=== PATIENT | female | born 1965 | race Caucasian/White ===

== ENCOUNTER → 2017-09-26 10:12 | Outpatient (CLI) | payer MEDICAID, SELFPAY ==
[2017-09-26 11:34] LABS: Anion Gap 11.1 mEq/L (5-15); Blood Urea Nitrogen 18 mg/dL (7-18); Carbon Dioxide 30 mmol/L (21.0-32.0); Chloride 103 mmol/L (98-107); Creatinine,Serum 0.93 mg/dL (0.55-1.02); Estimated Glomerular Filt Rate 63 ml/min (>60); GFR (African American) 77 ML/MIN (>60); Glucose 89 mg/dL (74-106); Potassium 5.1 mmoL/L (3.5-5.1); Sodium 139 mmol/L (136-145)
== END ==
PROVIDERS: Urology; Visit Provider Internal Medicine
DX: R60.0 Localized edema (principal)
CPT/HCPCS: 36415; 80048

== ENCOUNTER → 2017-12-04 10:45 | Outpatient (CLI) | payer MEDICAID, SELFPAY ==
[2017-12-04 11:47] LABS: Anion Gap 13.5 mEq/L (5-15); Blood Urea Nitrogen 18 mg/dL (7-18); Carbon Dioxide 28 mmol/L (21.0-32.0); Chloride 99 mmol/L (98-107); Creatinine,Serum 1.24 mg/dL (0.55-1.02); Estimated Glomerular Filt Rate 45 ml/min (>60); GFR (African American) 55 ML/MIN (>60); Glucose 111 mg/dL (74-106); Potassium 4.5 mmoL/L (3.5-5.1); Sodium 136 mmol/L (136-145)
== END ==
PROVIDERS: PCP Family Medicine; Visit Provider Physician Assistant
DX: R06.00 Dyspnea, unspecified (principal); R42 Dizziness and giddiness; R94.31 Abnormal electrocardiogram [ECG] [EKG]; I20.9 Angina pectoris, unspecified; I11.0 Hypertensive heart disease with heart failure
CPT/HCPCS: 36415; 80048; 83880

== ENCOUNTER → 2017-12-27 08:46 | Outpatient (CLI) | payer MEDICAID, SELFPAY ==
[2017-12-27 09:50] LABS: Basophils % 0.1 % (0.1-2.0); Eosinophils % 0.5 % (0.1-12.0); Hematocrit 44.5 % (37.0-47.0); Hemoglobin 14.7 g/dL (12.2-16.2); Lymphocytes # 1.5 K/mm3 (0.7-4.5); Lymphocytes % 20.5 K/mm3 (10-50); Mean Corpuscular HGB Conc 32.9 g/dL (31.8-35.4); Mean Platelet Volume 8.7 fl (7.4-10.4); Monocytes # 0.4 K/mm3 (0.1-1.0); Monocytes % 4.9 % (1.7-9.3); Neutrophils # 5.3 K/mm3 (1.8-7.8); Platelet Count 233 K/mm3 (142-424); Red Blood Count 5.24 M/mm3 (4.20-5.40); Red Cell Distribution Width 14.5 % (11.5-17.5); White Blood Count 7.2 K/mm3 (4.8-10.8)
[2017-12-27 10:47] LABS: Alanine Aminotransferase 25 U/L (12-78); Albumin/Globulin Ratio 0.9 (1.1-1.8); Anion Gap 13.6 mEq/L (5-15); Aspartate Amino Transferase 14 U/L (15-37); Bilirubin,Total 0.5 mg/dL (0.2-1.0); Blood Urea Nitrogen 12 mg/dL (7-18); Calcium 9.8 mg/dL (8.5-10.1); Carbon Dioxide 32 mmol/L (21.0-32.0); Chloride 102 mmol/L (98-107); Creatinine,Serum 1.18 mg/dL (0.55-1.02); Estimated Glomerular Filt Rate 48 ml/min (>60); Ferritin 54 ng/mL (8-388); GFR (African American) 58 ML/MIN (>60); Globulin 4.3 gm/dl (1.3-3.2); Iron 43 ug/dl (28-170); Magnesium 1.8 mg/dL (1.4-2.2); Potassium 3.6 mmoL/L (3.5-5.1); Sodium 144 mmol/L (136-145); Total Protein,Serum 8.3 gm/dL (6.4-8.2); Triglycerides 192 mg/dL (30-200)
[2017-12-27 10:48] LABS: Alkaline Phosphatase 177 U/L (46-116); Chol/HDL Ratio 3.7 (1-3.5); Cholesterol 121 mg/dL (140-200); HDL Cholesterol 33 mg/dL (29-89); LDL Cholesterol 50 mg/dL (0-130); Thyroid Stimulating Hormone 1.72 uIU/ml (0.358-3.740); VLDL Cholesterol 38 mg/dL (0-40)
[2017-12-27 10:58] LABS: Glucose 123 mg/dL (74-106)
[2017-12-28 20:02] LABS: Folate >20.0 ng/mL (>3.0); Parathyroid Hormone Intact 36 pg/mL (15-65); Vitamin D 25 Hydroxy 56.4 ng/mL (30.0-100.0)
[2017-12-30 18:27] LABS: Methylmalonic Acid 157 nmol/L (0-378); Vitamin B1 186.3 nmol/L (66.5-200.0)
[2018-01-02 08:27] LABS: Vitamin A 65.6 ug/dL (33.1-100.0); Vitamin E Gamma Tocopherol 0.5 mg/L (0.5-5.5)
== END ==
PROVIDERS: PCP Family Medicine; Visit Provider Physician Assistant
DX: R63.4 Abnormal weight loss (principal); E78.00 Pure hypercholesterolemia, unspecified; I10 Essential (primary) hypertension; Z98.84 Bariatric surgery status
CPT/HCPCS: 36415; 80053; 80061; 82131; 82652; 82728; 82746; 83036; 83540; 83735; 83970; 84100; 84425; 84443; 84446; 84590; 85025

== ENCOUNTER → 2018-02-02 15:10 | Outpatient (CLI) | payer MEDICAID, SELFPAY ==
--- NOTE | 2018-02-02 15:12 | MM_ITS ---
MM Dig screening mamm BI w/CAD ORDERING PHYSICIAN : Maria Isabel Trejo PATIENT AGE: 52 years GENDER: Female COMPARISON: Baseline study no previous INDICATION: ITS.REASON: SCREENING no hormones. No new complaints. Family history. Maternal grandmother and maternal aunt and paternal cousin with breast cancer. TECHNIQUE: Standard CC and MLO images were obtained. R2 CAD reviewed. FINDINGS: Low-density breast with generalized fatty change . No dominant mass nor suspicious calcifications in either breast. No areas of concern Scant fibroglandular tissue with minimal nodularity at the retroareolar region bilaterally is unimpressive, appears benign currently & can be followed CAD computer review highlights no areas of concern either. This is a baseline study with no previous available for comparison. Bilateral follow-up in one year adequate IMPRESSION: ... Negative baseline mammogram. Low-density breast with no areas of significant concern. Bilateral follow-up one year recommended BI-RADS Category: 1 Negative RECOMMENDED FOLLOW-UP: 1YR 1 YEAR FOLLOW-UP (A letter has been sent to the patient regarding results of the study.)
== END ==
PROVIDERS: PCP Nurse Practitioner; Visit Provider Nurse Practitioner
DX: Z12.31 Encounter for screening mammogram for malignant neoplasm of breast (principal)
CPT/HCPCS: 77067

== ENCOUNTER → 2018-06-12 09:19 | Outpatient (CLI) | payer MEDICARE, SELFPAY ==
[2018-06-12 10:00] LABS: Eosinophils % 0.3 % (0.1-12.0); Hematocrit 42.1 % (37.0-47.0); Hemoglobin 13.8 g/dL (12.2-16.2); Lymphocytes # 1.3 K/mm3 (0.7-4.5); Lymphocytes % 21.6 % (10-50); Mean Corpuscular HGB Conc 32.7 g/dL (31.8-35.4); Mean Corpuscular Hemoglobin 28.5 pg (27.0-31.2); Mean Corpuscular Volume 87.4 fl (81-99); Mean Platelet Volume 9.7 fl (7.4-10.4); Monocytes # 0.4 K/mm3 (0.1-1.0); Monocytes % 6.7 % (1.7-9.3); Neutrophils # 4.2 K/mm3 (1.8-7.8); Neutrophils % 71.4 % (37.0-80.0); Platelet Count 177 K/mm3 (142-424); Red Blood Count 4.82 M/mm3 (4.20-5.40); White Blood Count 5.9 K/mm3 (4.8-10.8)
[2018-06-12 10:13] LABS: Hemoglobin A1C 5.8 % (0.0-7.0)
[2018-06-12 11:03] LABS: Alanine Aminotransferase 21 U/L (12-78); Albumin Level 3.5 gm/dL (3.4-5.0); Albumin/Globulin Ratio 0.9 (1.1-1.8); Alkaline Phosphatase 167 U/L (46-116); Anion Gap 12.9 mEq/L (5-15); Aspartate Amino Transferase 11 U/L (15-37); Bilirubin,Total 0.7 mg/dL (0.2-1.0); Blood Urea Nitrogen 12 mg/dL (7-18); Calcium 9.2 mg/dL (8.5-10.1); Carbon Dioxide 31 mmol/L (21.0-32.0); Chloride 101 mmol/L (98-107); Chol/HDL Ratio 3.6 (1-3.5); Cholesterol 113 mg/dL (140-200); Estimated Glomerular Filt Rate 58 ml/min (>60); Ferritin 37 ng/mL (8-388); GFR (African American) 70 ML/MIN (>60); Globulin 3.8 gm/dl (1.3-3.2); Glucose 98 mg/dL (74-106); HDL Cholesterol 31 mg/dL (29-89); Iron 81 ug/dl (28-170); LDL Cholesterol 54 mg/dL (0-130); Magnesium 1.9 mg/dL (1.4-2.2); Phosphorous 3.9 mg/dL (2.4-4.9); Potassium 3.9 mmoL/L (3.5-5.1); Sodium 141 mmol/L (136-145); Thyroid Stimulating Hormone 2.22 uIU/ml (0.358-3.740); Total Protein,Serum 7.3 gm/dL (6.4-8.2); Triglycerides 139 mg/dL (30-200); VLDL Cholesterol 28 mg/dL (0-40)
[2018-06-13 15:27] LABS: Folate >20.0 ng/mL (>3.0); Prealbumin 25 mg/dL (10-36); Vitamin D 25 Hydroxy 41.6 ng/mL (30.0-100.0)
[2018-06-14 09:43] LABS: Parathyroid Hormone Intact 41 pg/mL (15-65)
[2018-06-15 10:53] LABS: Vitamin A 59.7 ug/dL (20.1-62.0); Vitamin E Alpha Tocopherol 9.5 mg/L (7.0-25.1); Vitamin E Gamma Tocopherol 0.7 mg/L (0.5-5.5)
[2018-06-15 13:12] LABS: Methylmalonic Acid 218 nmol/L (0-378)
[2018-06-15 17:31] LABS: Vitamin B1 175.1 nmol/L (66.5-200.0)
== END ==
PROVIDERS: Visit Provider Physician Assistant
DX: R63.4 Abnormal weight loss (principal); E78.5 Hyperlipidemia, unspecified; K21.0 Gastro-esophageal reflux disease with esophagitis; Z98.84 Bariatric surgery status; E11.9 Type 2 diabetes mellitus without complications
CPT/HCPCS: 36415; 80053; 80061; 82131; 82652; 82728; 82746; 83036; 83540; 83735; 83970; 84100; 84134; 84425; 84443; 84446; 84590; 85025

== ENCOUNTER → 2018-07-18 09:19 | Outpatient (CLI) | payer MEDICARE, SELFPAY ==
--- NOTE | 2018-07-18 09:29 | XR_ITS ---
XR DEXA axial skeleton HISTORY: ITS.REASON: POST MENOPAUSAL ORDERING PHYSICIAN: Maria Isabel Trejo PATIENT AGE: 53 years COMPARISON: 08/03/2010 FINDINGS: The BMD measured at the Left femoral neck is 0.848 g/cm squared with a T score of -1.4. This is considered Osteopenic according to the World Health Organization criteria. Fracture risk is Moderate. The L1-L4 density has a T score of -0.4. The bone density has decreased by 6.5 %. The mean hip density has decreased by 12% IMPRESSION: Osteopenia with moderate fracture risk. Treatment is advised. Suggest follow-up exam June 2020
== END ==
PROVIDERS: PCP Nurse Practitioner; Visit Provider Nurse Practitioner
DX: Z78.0 Asymptomatic menopausal state (principal); Z82.62 Family history of osteoporosis
CPT/HCPCS: 77080

== ENCOUNTER 2018-08-23 13:33 | Outpatient (CLI) | payer MEDICARE, SELFPAY ==
[2018-08-23 14:04] VITALS: BP 130/75; PULSE 75; RESP 18; TEMP 36.6; O2SAT 95
== END 2018-08-23 14:30 | disposition home or self-care (01) ==
LOC: INF 13:33
PROVIDERS: Visit Provider Nurse Practitioner
DX: M81.0 Age-related osteoporosis without current pathological fracture (principal)
CPT/HCPCS: 96372; J0897

== ENCOUNTER → 2019-02-19 08:14 | Outpatient (CLI) | payer MEDICARE, SELFPAY ==
--- NOTE | 2019-02-19 08:17 | MM_ITS ---
PROCEDURE: MM DIG SCREENING MAMM BI W/CAD Patient Age:53Y CLINICAL INDICATION: SCREENING 53-year-old post menopausal female. No hormones. No new complaints. Family history: Maternal grandmother and maternal aunt with breast cancer. Also paternal cousin COMPARISON: [facility] MM Dig screening mamm BI w/CAD from 02/02/2018 TECHNIQUE: Standard CC and MLO images were obtained. R2 CAD reviewed. additional nipple profile CC view right and left breast included FINDINGS: Generalized fatty replacement.. Mammography is most optimal low-density breast as seen in this patient. No new areas of concern. No dominant nor suspicious mass.. No suspicious calcifications Right breast. Stable The 3 small stable punctate calcifications superior right breast-not of concern can be followed. Left breast:. Unremarkable . Follow-up 1 year bilaterally recommended IMPRESSION: Stable bilateral mammogram with no new areas of significant concern Bilateral follow-up 1 year recommended BI-RAD Category: 1 Negative FOLLOW-UP: 1YR 1 Year Follow-up (A letter has been sent to the patient regarding results of the study.) Dictated by: Mark Neely MD 02/19/2019 15:58 Electronically signed by Mark Neely MD in [place] 02/25/2019 09:07
== END ==
PROVIDERS: PCP Nurse Practitioner; Visit Provider Nurse Practitioner
DX: Z12.31 Encounter for screening mammogram for malignant neoplasm of breast (principal)
CPT/HCPCS: 77067

== ENCOUNTER 2019-02-26 12:33 | Outpatient (CLI) | payer MEDICARE, SELFPAY ==
[2019-02-26 12:52] VITALS: BP 119/74; PULSE 79; RESP 18; TEMP 36.6; O2SAT 96
== END 2019-02-26 13:05 | disposition home or self-care (01) ==
LOC: INF 12:33
PROVIDERS: Visit Provider Nurse Practitioner
DX: M81.0 Age-related osteoporosis without current pathological fracture (principal)
CPT/HCPCS: 96372; J0897

== ENCOUNTER → 2019-05-02 12:45 | Outpatient (CLI) | payer MEDICARE, SELFPAY | PROVIDERS: PCP Nurse Practitioner; Visit Provider Urology | DX: G47.33 Obstructive sleep apnea (adult) (pediatric) (principal); R40.0 Somnolence | CPT/HCPCS: G0399 ==

== ENCOUNTER → 2019-05-13 10:07 | Outpatient (CLI) | payer MEDICARE, SELFPAY ==
--- NOTE | 2019-05-13 10:12 | XR_ITS ---
PROCEDURE: XR SHOULDER RT MIN 2V CLINICAL INDICATION: TENDINITIS OF RT ROTATOR CUFF COMPARISON: No exams were available for comparison FINDINGS: There is no acute fracture dislocation or other focal bony lesion. IMPRESSION: No acute findings. Dictated by: Alex Obrien 05/13/2019 17:12 Electronically signed by Alex Obrien in [place] 05/13/2019 17:12
== END ==
PROVIDERS: PCP Nurse Practitioner; Visit Provider Nurse Practitioner
DX: M75.81 Other shoulder lesions, right shoulder (principal)
CPT/HCPCS: 73030

== ENCOUNTER → 2019-06-25 10:50 | Outpatient (CLI) | payer MEDICARE, SELFPAY ==
[2019-06-25 13:44] LABS: Ferritin 26.1 ng/ml (11.1-264)
== END ==
PROVIDERS: Visit Provider Nurse Practitioner Family
DX: E83.10 Disorder of iron metabolism, unspecified (principal); G47.33 Obstructive sleep apnea (adult) (pediatric)
CPT/HCPCS: 36415; 82728

== ENCOUNTER 2019-06-28 09:00 | Outpatient (RCR) | payer MEDICARE, SELFPAY ==
--- NOTE | 2019-05-29 11:58 | HMH.OTOPEV ---
OT Inpatient Evaluation Rehab OT Outpatient Eval Start: 05/29/19 11:41 Freq: Status: Active Protocol: Document 05/29/19 11:42 RMDEEL (Rec: 05/29/19 11:56 [id number] Electronically Signed By Tirso Titus OT 05/29/19 11:42 Outpatient Therapy Subjective History Subjective History Pt is a 54 year old female who reports to therapy for initial evaluation to right shoulder. Pt reports in march of 2019 she started to slip and slid into the corner of her house with her right shoulder. Pt explained after this accident she began having pain in the right shoulder. Pt does demonstrate with decreased AROM and strength at right shoulder. Pt is right hand dominant. Pt will continue to be seen twice a week in order to address all deficits. Chief Complaint Stiff,Weakness Symptom Type Ache,Throb,Sharp,Dull,Stabbing ,Shooting Symptoms Relieved By Rest/Positioning,Heat Symptoms Aggravated By Physical Activity,Lifting Prior Functional Limitations None Current Functional Limitations Reaching,Lifting,Housework, Dressing,Driving,Sleeping, Recreation Activity Symptom Description Constant but Variable Level of pain today (0-10) 3 Pain scale - at its best (0-10) 2 Pain scale - at its worst (0-10) 9 Shoulder/Elbow Eval Shoulder Objective Measurements Shoulder ROM Right Shoulder ROM Limitations Pain Shoulder Abduction Active Range of 90 degrees Motion (degrees) Shoulder Flexion Active Range of Motion 70 degrees (degrees) Query Text: Shoulder External Rotation Active Range 75 degrees of Motion (degrees) Shoulder Internal Rotation Active Range 45 degrees of Motion (degrees) pain with active ROM shoulder exam right standard pain with passive ROM shoulder exam right standard decreased ROM shoulder exam standard right Shoulder MMT Shoulder Abduction Strength Grade 3+ Fair+ Shoulder Extension Strength Grade 4- Good- Shoulder Flexion Strength Grade 4- Good- Shoulder Horizontal Abduction Strength 3+ Fair+ Grade Shoulder Horizontal Adduction Strength 3+ Fair+ Grade
--- NOTE | 2019-06-28 09:43 | HMH.RHREAS ---
Rehab Reassessment Rehab OP Re-assessment Start: 06/28/19 09:22 Freq: Status: Active Protocol: Document 06/28/19 09:23 SIA (Rec: 06/28/19 09:42 SIA [id number]) Electronically Signed By Tirso Titus OT 06/28/19 09:23 Rehab Re-assessment Objective Objective Notes Pt continues to be seen twice a week in order to address all deficits at right shoulder. Each session patient engages in R shoulder AROM/AAROM/ Strengthening exercises. Pt also receives modalities such as e-stim to reduce pain/ inflammation. Assessment Progress Assessment Progressing as Expected Assessment Notes Pt reports she feels she is 50 % better since beginning therapy. She does still have pain at times in the shoulder, but it is not as frequent as it used to be. Pt claims her pain at the worst now is a 7/ 10, which does not happen daily. Pt demonstrates with improved AROM and strength at right shoulder. Pt is able to tolerat 30-35 minutes of therapy exercises prior to rest. Current AROM/MMT R shoulder Flex: 122 degrees; 4 Abd: 115 degrees; 4 ER: 75 degrees: 4 IR: 55 degrees; 4- Patient goals met Pt has met all short term goals written on initial evaluation Goals Not Met jail goals Revised Goals Continue progressing towards fdc goals written on initial evaluation. Plan Plan Continue with OT plan of care Frequency of Therapy 2x's a week Duration of therapy 4-6 more weeks Time and Billing Re-Eval Time 15 Re-Eval Billing Units 1 PHYSICIAN CERTIFICATION: I certify the specified therapy services for Rebeca Bassett are required, authorized, and reviewed every 30 days.
== END 2019-06-28 09:05 | disposition home or self-care (01) ==
LOC: OT 09:00
PROVIDERS: PCP Nurse Practitioner; Visit Provider Nurse Practitioner
DX: M75.81 Other shoulder lesions, right shoulder (principal)
CPT/HCPCS: 97014; 97110; 97164; 97166; G0283

== ENCOUNTER 2019-08-28 12:00 | Outpatient (CLI) | payer MEDICARE, SELFPAY ==
[2019-08-28 12:19] VITALS: BP 119/70; PULSE 74; RESP 20; TEMP 36.3; O2SAT 95
== END 2019-08-28 12:19 | disposition home or self-care (01) ==
LOC: INF 12:00
PROVIDERS: Visit Provider Nurse Practitioner
DX: M85.89 Other specified disorders of bone density and structure, multiple sites (principal)
CPT/HCPCS: 96372; J0897

== ENCOUNTER → 2019-10-18 11:14 | Outpatient (CLI) | payer MEDICARE, SELFPAY ==
[2019-10-19 14:20] LABS: Covid-19 Nasal PCR Sendout Lex Not Detected
== END ==
PROVIDERS: Visit Provider Nurse Practitioner
DX: Z01.818 Encounter for other preprocedural examination (principal); G47.33 Obstructive sleep apnea (adult) (pediatric)
CPT/HCPCS: U0004

== ENCOUNTER → 2019-10-24 20:11 | Outpatient (CLI) | payer MEDICARE, SELFPAY | PROVIDERS: PCP Nurse Practitioner; Visit Provider Nurse Practitioner Family | DX: G47.33 Obstructive sleep apnea (adult) (pediatric) (principal); I10 Essential (primary) hypertension; E66.9 Obesity, unspecified; J44.9 Chronic obstructive pulmonary disease, unspecified; G25.81 Restless legs syndrome | CPT/HCPCS: 95811 ==

== ENCOUNTER → 2019-11-13 10:01 | Outpatient (CLI) | payer MEDICARE, SELFPAY ==
[2019-11-13 12:49] LABS: Ferritin 53.7 ng/ml (11.1-264)
== END ==
PROVIDERS: Visit Provider Nurse Practitioner Family
DX: E83.10 Disorder of iron metabolism, unspecified (principal); G25.81 Restless legs syndrome
CPT/HCPCS: 36415; 82728

== ENCOUNTER → 2020-02-06 08:53 | Outpatient (CLI) | payer MEDICARE, SELFPAY ==
--- NOTE | 2020-02-06 08:56 | MM_ITS ---
PROCEDURE: MM DIG SCREENING MAMM BI W/CAD Digital Breast Tomosynthesis Included CLINICAL INDICATION: SCREENING There is a history of breast cancer in the patient's maternal grandmother maternal aunt and paternal cousin. COMPARISON: [facility] MM Dig screening mamm BI w/CAD from 02/02/2018 MG MM DIG SCREENING MAMM BI W/CAD from 02/19/2019 TECHNIQUE: Standard CC and MLO images and 3D Tomosynthesis was obtained. R2 CAD reviewed. FINDINGS: The breasts are composed primarily of fat with minimal scattered fibroglandular densities in each breast. There is no suspicious lesion in either breast and no suspicious microcalcifications. IMPRESSION: Low-density fatty type breast parenchyma with no suspicious lesions seen BI-RAD Category: 2 Benign Finding(s) FOLLOW-UP: 1 Year Follow-up (A letter has been sent to the patient regarding results of the study.) Dictated by: Dr. Keyur Mitchell MD 02/07/2020 10:58 Dr. Keyur Mitchell MD in [place] 02/07/2020 10:58
== END ==
PROVIDERS: PCP Nurse Practitioner; Visit Provider Nurse Practitioner
DX: Z12.31 Encounter for screening mammogram for malignant neoplasm of breast (principal)
CPT/HCPCS: 77063; 77067

== ENCOUNTER 2020-03-03 11:38 | Outpatient (CLI) | payer MEDICARE, SELFPAY ==
[2020-03-03 11:48] VITALS: BP 129/75; PULSE 70; RESP 18; TEMP 36.2; O2SAT 98
== END 2020-03-03 12:10 | disposition home or self-care (01) ==
LOC: INF 11:38
PROVIDERS: Visit Provider Nurse Practitioner
DX: M81.0 Age-related osteoporosis without current pathological fracture (principal)
CPT/HCPCS: 96372; J0897

== ENCOUNTER → 2020-07-28 13:55 | Outpatient (CLI) | payer MEDICARE, OTHER, SELFPAY ==
[2020-07-28 14:11] LABS: Chloride 107 mmol/L (98-107); Potassium 4.2 mmoL/L (3.5-5.1); Sodium 139 mmol/L (136-145)
[2020-07-28 14:13] LABS: Alanine Aminotransferase 16 U/L (12-78); Alkaline Phosphatase 119 U/L (38-126); Aspartate Amino Transferase 23 U/L (14-36); Bilirubin,Total 0.4 mg/dl (0.2-1.3); Blood Urea Nitrogen 9 mg/dl (7-17); Estimated Glomerular Filt Rate 74 ml/min (>60); GFR (African American) 90 ML/MIN (>60)
[2020-07-28 14:14] LABS: Albumin Level 4.3 g/dl (3.5-5.0); Albumin/Globulin Ratio 1.3 (1.1-1.8); Anion Gap 12.2 mEq/L (5-15); Calcium 9.6 mg/dl (8.4-10.2); Carbon Dioxide 24 mmol/L (22.0-30.0); Chol/HDL Ratio 3.9 (1-3.5); Cholesterol 135 mg/dl (140-200); Globulin 3.2 g/dL (1.3-3.2); Glucose 85 mg/dl (74-100); HDL Cholesterol 35 mg/dl (40-60); Iron 87 ug/dL (37-170); Total Protein,Serum 7.5 g/dl (6.3-8.2); Triglycerides 182 mg/dl (30-150); VLDL Cholesterol 36 mg/dL (0-40)
[2020-07-28 14:17] LABS: Creatinine,Urine Random 20 mg/dL (Not Estab.)
[2020-07-28 14:18] LABS: Basophils % 0.2 % (0.1-2.0); Eosinophils # 0.4 K/mm3 (0.0-0.4); Eosinophils % 4.2 % (0.1-12.0); Hematocrit 47.5 % (37.0-47.0); Hemoglobin 16.1 g/dL (12.2-16.2); Lymphocytes % 22.1 % (10-50); Mean Corpuscular HGB Conc 33.8 g/dL (31.8-35.4); Mean Corpuscular Hemoglobin 31.7 pg (27.0-31.2); Mean Corpuscular Volume 93.8 fl (81-99); Mean Platelet Volume 10.4 fl (7.4-10.4); Monocytes # 0.5 K/mm3 (0.1-1.0); Monocytes % 5.8 % (1.7-9.3); Neutrophils # 6.1 K/mm3 (1.8-7.8); Neutrophils % 67.8 % (37.0-80.0); Platelet Count 203 K/mm3 (142-424); Red Blood Count 5.06 M/mm3 (4.20-5.40); Red Cell Distribution Width 13.3 % (11.5-17.5)
[2020-07-28 14:20] LABS: C-Reactive Protein 7.4 mg/L (0-4)
[2020-07-28 14:23] LABS: Microalbumin < 6.000 mg/L (0-16.7)
[2020-07-28 14:24] LABS: Total Iron Binding Capacity 379 ug/dL (265-497)
[2020-07-28 14:25] LABS: Direct LDL Cholesterol 72.61 mg/dL (100-129)
[2020-07-28 14:34] LABS: T4 (Thyroxine) 11.4 ug/dl (5.53-11.0)
[2020-07-28 14:42] LABS: Hemoglobin A1C 5.7 % (4.0-6.0)
[2020-07-28 14:45] LABS: Thyroid Stimulating Hormone 1.93 uIU/mL (0.465-4.68)
[2020-07-28 14:46] LABS: Erythrocyte Sedimentation Rate 19 mm/hr (0-30)
[2020-07-28 14:52] LABS: 25-OH Vitamin D, Total 33.4 ng/mL (30-100)
== END ==
PROVIDERS: Visit Provider Family Medicine
DX: E11.9 Type 2 diabetes mellitus without complications (principal); E55.9 Vitamin D deficiency, unspecified; R60.9 Edema, unspecified; R07.9 Chest pain, unspecified; Z79.84 Long term (current) use of oral hypoglycemic drugs
CPT/HCPCS: 80053; 80061; 82043; 82306; 82570; 83036; 83540; 83550; 84436; 84443; 85025; 85651; 86140

== ENCOUNTER → 2020-08-10 11:16 | Outpatient (POV) | payer MEDICARE, OTHER, SELFPAY ==
[2020-08-10 11:46] VITALS: BP 138/89; PULSE 83; RESP 18; BMI 33.2
--- NOTE | 2020-08-10 12:05 | HMH.PMCON ---
Assessment and Plan (1) Back pain Status: Acute Category: Medical Code(s): M54.9 - Dorsalgia, unspecified (2) Bilateral foot pain Status: Acute Category: Medical Code(s): M79.671 - Pain in right foot; M79.672 - Pain in left foot - Assessment and plan all Dx Assessment and Plan for all problems:: We will start the patient on gabapentin 100 mg 1 p.o. nightly. We will also get a lumbar MRI. I will follow-up with her afterwards reassess her symptoms at that time she has been instructed to call the office if she has any issues prior to her next appointment. She is failed over [address] management[address]. Edwards has reviewed this note and agrees with this plan of care. This note was dictated using voice recognition software and may contain errors or omissions HPI - Data of Consult Consult date: 08/10/20 Requesting Physician: Christina Mann APRN Primary Care Provider: Mary Marshall APRN - Consult Narrative Reason for consult: Bilateral foot pain History of present illness: Ms. Bassett is a 55 year old female who presents today for consultation regards her bilateral foot pain. She states she is had pain for 2 years she was seen by podiatry who diagnosed with arthritis. Patient states that her pain is about an 8 out of 10 she has difficulty with standing and walking. She is also having low back pain. She is on Be[place] and tramadol with no long-term relief. Patient has tried Lyrica in the past it was beneficial however she had nausea with it. We discussed adding a low-dose of gabapentin at bedtime she is agreeable. She does not have any lower lumbar imaging I do believe that this would benefit her. Patient has recently switched primary care providers. CC: Christina Mann APRN [facility] History I have reviewed the patient's past medical history: Yes Medical History: Reports:: Anxiety, Congestive Heart Failure, Chronic Obstructive Pulmonary Disease (COPD), Coronary Artery Disease, Depression, Gastroesophageal Reflux Disease(GERD), Hyperlipidemia, Hypertension, Myocardial Infarction Denies:: Cancer, Diabetes Mellitus Type 1, Diabetes Mellitus Type 2, MRSA *Have you ever received a pneumonia vaccine?: Yes *Have you received a flu vaccine this season?: Yes Other Medical History: Reports: Arthritis, Fibromyalgia, Sinus Problems Laterality Cases: Bilateral: Tonsillectomy Other Surgeries: Yes: Cardiac Catheterization, Cholecystectomy, Colonoscopy, Coronary Stent, Dilation and Curettage, EGD, Hysterectomy-Total, Other Amputation: No Fractures: No - *Social History Smoking Status: Current every day smoker Tobacco Type: cigarettes # Packs/Day (cigarettes): 1 #Yrs smoked (if former smoker): 30 Alcohol Intake: never Alcohol Intake Frequency:: other Substance Use Type: denies use *Occupational Status:: other Housing: house Household Members: other *Travel in the last 8 weeks: None - Psychiatric History Pschychiatric History:: Reports:: Anxiety, Depression Family Hx:: Unable to obtain Review of Systems - Review of Systems ROS General: no recent weight change, no fever, no sleep disturbances Respiratory: no cough, no shortness of air, no recurring pulmonary infections Cardiovascular/Peripheral Vascular: No chest pain, No palpitations, no edema, no shortness of breath. Gastrointestinal: no new onset incontinence, normal bowel movements reported Genitourinary: no new onset incontinence Musculoskeletal: Bilateral foot pain, back pain Psychiatric: normal mood/ affect Neurological: [denies new onset weakness in extremities], [denies new onset balance issues] Meds Home Medications Medication Instructions Recorded Confirmed Type aspirin 81 mg tablet,delayed 81 mg PO QDAY 05/22/17 05/27/20 History release liraglutide 0.6 mg/0.1 mL (18 mg/3 1.2 mg SUB-Q QDAY ml 05/22/17 05/27/20 History mL) subcutaneous pen injector omeprazole 40 mg capsule,delayed 40 mg PO QDAY 05/22/17 05/27/20 Hist
== END ==
PROVIDERS: PCP Nurse Practitioner Family; Visit Provider Clinical Nurse Specialist Family Health
DX: M54.9 Dorsalgia, unspecified (principal); M79.671 Pain in right foot; M79.672 Pain in left foot
CPT/HCPCS: 99202; G0463

== ENCOUNTER → 2020-08-18 13:01 | Outpatient (CLI) | payer MEDICARE, OTHER, SELFPAY ==
--- NOTE | 2020-08-18 13:07 | MR_ITS ---
PROCEDURE: MR LUMBAR SPINE WO CON CLINICAL INDICATION: BACK PAIN Low back pain. Bilateral foot pain x3-4months. COMPARISON: CT ABDPELW/O CT ABD PELVIS W/O CONTRAST from 07/13/2016 TECHNIQUE: Standard multiplanar multiecho sequences are performed without contrast. 3-D MIP and myelographic images are also rendered and reviewed FINDINGS: The spinal cord ends at the L1 level. L1-L2: Unremarkable. L2-L3: Unremarkable. L3-L4: Minimal bulging disc with mild facet and ligamentum hypertrophy with mild bilateral lateral recess and foraminal narrowing.. L4-5: There is 3 mm anterolisthesis of L4 with bulging disc with facet and ligamentum hypertrophy and moderate bilateral foraminal narrowing with canal stenosis. Small amount of fluid is present in the facet joint on the left at this level. L5-S1: Minimal bulging disc along with facet and ligamentum hypertrophic change with mild left-sided foraminal narrowing. No extruded herniated disc. IMPRESSION: 1. L3-L4: Minimal bulging disc with mild facet and ligamentum hypertrophy with mild bilateral lateral recess and foraminal narrowing.. 2. L4-5: There is 3 mm anterolisthesis of L4 with bulging disc with facet and ligamentum hypertrophy and moderate bilateral foraminal narrowing with canal stenosis. Small amount of fluid is present in the facet joint on the left at this level. 3. L5-S1: Minimal bulging disc along with facet and ligamentum hypertrophic change with mild left-sided foraminal narrowing. 4. No extruded herniated disc. Dictated by: Ventura Matos MD 08/19/2020 11:59 Ventura Matos MD in [place] 08/19/2020 11:59
== END ==
PROVIDERS: PCP Nurse Practitioner Family; Visit Provider Clinical Nurse Specialist Family Health
DX: M54.5 Low back pain (principal)
CPT/HCPCS: 72148; 76376

== ENCOUNTER → 2020-08-27 13:07 | Outpatient (POV) | payer MEDICARE, OTHER, SELFPAY ==
[2020-08-27 13:12] VITALS: BP 140/88; PULSE 77; RESP 18; BMI 31.6
--- NOTE | 2020-08-27 13:36 | P.CONS_ITS ---
[facility] Pain Management SOAP Note Subjective:: She is a pleasant 55-year-old white female who presents today for follow-up after MRI. Patient does have degenerative disc changes along with facet hypertrophy. She also has left-sided foraminal narrowing. Patient and I discussed injection therapy she is agreeable we will set her up for an L4-L5 steph mbar epidural steroid injection most of her pain is in her back and bilateral lower extremities worse than the left. Patient is on gabapentin. We will make some increases to that today she denies any side effects to that medication. She rates her pain today an 8 out of 10. ROS General: no recent weight change, no fever, no sleep disturbances Respiratory: no cough, no shortness of air, no recurring pulmonary infections Cardiovascular/Peripheral Vascular: No chest pain, No palpitations, no edema, no shortness of breath. Gastrointestinal: no new onset incontinence, normal bowel movements reported Genitourinary: no new onset incontinence Musculoskeletal: Back pain, leg pain Psychiatric: normal mood/ affect Neurological: [denies new onset weakness in extremities], [denies new onset b alance issues] Objective:: Physical Exam General: Alert and oriented x3, no acute distress, pleasant and cooperative, [on room air] Lungs: Resps E/U, Symmetrical chest expansion, Eyes: PERRL Musculoskeletal: Flexion and extension of lumbar spine somewhat guarded secondary to pain, deep tendon reflexes normal, strength in upper and lower extremities [5/5], slightly antalgic gait noted Neurological: speech clear, waiter/waitress cocktail lounge equal, no gross sensory deficits Assessment:: Degenerative disc disease lumbar spine lumbar radiculopathy, back pain Plan:: We will schedule the patient for an L4-L5 lumbar epidural steroid injection. Patient's been instructed to call the office if she has any issues prior to her next appointment. We will increase her gabapentin to 300 mg 1 p.o. 4 times daily. [facility] Edwards has reviewed this note and agrees with this plan of care. This note was dictated using voice recognition software and may contain errors or omissions [facility] History I have reviewed the patient's past medical history: Yes Medical History: Reports:: Anxiety, Congestive Heart Failure, Chronic Obstructive Pulmonary Disease (COPD), Coronary Artery Disease, Depression, Gastroesophageal Reflux Disease(GERD), Hyperlipidemia, Hypertension, Myocardial Infarction Denies:: Cancer, Diabetes Mellitus Type 1, Diabetes Mellitus Type 2, MRSA *Have you ever received a pneumonia vaccine?: Yes *Have you received a flu vaccine this season?: Yes Other Medical History: Reports: Arthritis, Fibromyalgia, Sinus Problems Laterality Cases: Bilateral: Tonsillectomy Other Surgeries: Yes: Cardiac Catheterization, Cholecystectomy, Colonoscopy, Coronary Stent, Dilation and Curettage, EGD, Hysterectomy-Total, Other Amputation: No Fractures: No - *Social History Smoking Status: Current every day smoker Tobacco Type: cigarettes # Packs/Day (cigarettes): 1 #Yrs smoked (if former smoker): 30 Alcohol Intake: never Alcohol Intake Frequency:: other Substance Use Type: denies use *Occupational Status:: other Housing: house Household Members: other *Travel in the last 8 weeks: None - Psychiatric History Pschychiatric History:: Reports:: Anxiety, Depression Family Hx:: Unable to obtain
--- NOTE | 2020-09-01 11:41 | PC.NURSE ---
notified patient that approval was obtained for her to to hold her plavix 7 days prior to injection from Dr Stevenson. pt v/u
== END ==
PROVIDERS: PCP Nurse Practitioner Family; Visit Provider Clinical Nurse Specialist Family Health
DX: M51.16 Intervertebral disc disorders with radiculopathy, lumbar region (principal)
CPT/HCPCS: 99212; G0463

== ENCOUNTER 2020-09-01 11:03 | Outpatient (CLI) | payer MEDICARE, OTHER, SELFPAY ==
[2020-09-01 11:17] VITALS: BP 133/89; PULSE 75; RESP 18; TEMP 36.6; O2SAT 96
== END 2020-09-01 11:40 | disposition home or self-care (01) ==
LOC: INF 11:03
PROVIDERS: Visit Provider Nurse Practitioner
DX: M81.0 Age-related osteoporosis without current pathological fracture (principal)
CPT/HCPCS: 96372; J0897

== ENCOUNTER 2020-09-11 10:09 | Day surgery (SDC) | payer MEDICARE, OTHER, SELFPAY ==
[2020-09-11 10:22] VITALS: BP 121/76; PULSE 78; RESP 18; TEMP 36.6; O2SAT 99; BMI 32.3
[2020-09-11 10:37] VITALS: BP 116/74; PULSE 78; RESP 18; O2SAT 98
[2020-09-11 10:38] VITALS: BP 117/78; PULSE 79; RESP 18; O2SAT 98
--- NOTE | 2020-09-11 10:49 | HMH.PMPROC ---
- Procedure Date: 09/11/20 Time: 10:49 Anesthesiologist:: Nilay Edwards MD Complications:: None Pre-procedure Diagnosis:: Degenerative disc disease of lumbar spine with lumbar radiculopathy symptoms Post-procedure Diagnosis:: Same Indications for Procedure:: Patient is a pleasant 55-year-old white female who we are treating for low back pain with lumbar radiculopathy symptoms. She has increasing pain in her back and down both legs left greater than right. We will do lumbar epidural steroid injection today to see if this will help with her pain symptoms. Procedure Details:: Informed consent was obtained and the risk and benefits of the procedure was explained to the patient. The patient was taken to the procedure room. The patient was placed prone on the procedure table. The patient was prepped and draped in sterile fashion. C-arm fluoroscopy was used to view the lumbar spine. Skin and subcutaneous tissues were anesthetized using lidocaine. I placed an 18-gauge epidural needle and advanced into the L4-L5 interspace using fluoroscopic guidance and [id number] to air. After confirmation of needle placement in the epidural space with dye I injected 2 mL of lidocaine 1.5% with Depo-Medrol 80 mg. Patient tolerated the procedure well with no complications. Plan and Disposition:: We will follow-up with her in 2 weeks. Will reevaluate her symptoms at that time.
[2020-09-11 10:55] VITALS: BP 129/84; PULSE 73; RESP 18; O2SAT 98
== END 2020-09-11 10:56 | disposition home or self-care (01) ==
LOC: SC.PAINP 10:11
PROVIDERS: PCP Family Medicine; Visit Provider Anesthesiology
DX: M51.16 Intervertebral disc disorders with radiculopathy, lumbar region (principal); E78.5 Hyperlipidemia, unspecified; I11.0 Hypertensive heart disease with heart failure; I25.10 Atherosclerotic heart disease of native coronary artery without angina pectoris; I50.9 Heart failure, unspecified; H81.09 Meniere's disease, unspecified ear; J44.9 Chronic obstructive pulmonary disease, unspecified; Z72.0 Tobacco use; Z95.818 Presence of other cardiac implants and grafts; Z88.8 Allergy status to other drugs, medicaments and biological substances
CPT/HCPCS: 62323; J1040; Q9966

== ENCOUNTER → 2020-10-02 07:41 | Outpatient (CLI) | payer MEDICARE, OTHER, SELFPAY ==
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
== END ==
PROVIDERS: PCP Family Medicine; Visit Provider Family Medicine
DX: M54.2 Cervicalgia (principal)
CPT/HCPCS: 72141; 76376

== ENCOUNTER → 2020-10-08 08:58 | Outpatient (POV) | payer MEDICARE, OTHER, SELFPAY ==
[2020-10-08 09:12] VITALS: BP 111/77; PULSE 77; RESP 20; O2SAT 96; BMI 31.6
--- NOTE | 2020-10-08 11:14 | HMH.PAINSOAP ---
[facility] Pain Management SOAP Note Subjective:: Patient is a 55-year-old white female who presents today for follow-up. She recently had a lumbar epidural steroid injection. She is being treated for degenerative disc disease lumbar spine with lumbar radiculopathy symptoms. She also underwent a cervical MRI. Patient is having severe neck pain radiating into bilateral shoulders, arms, and numbness and tingling in her hands. She is having difficulty holding objects and grasping things. She says she is dropping objects often. Raising her arms worsens her pain. She says the pain is also radiating into her head. She says it is a crushing-like sensation. She rates her pain an 8 out of 10 today. She is having tingling into her fingers that she says feels as though her fingers are about to fall asleep . She has tried physical therapy in the past for greater than 6 weeks and continues with home stretching. She got significant relief with her lumbar epidural steroid injection up to 80% and still getting relief. Review of Systems General: No recent weight changes, no fever, no sleep disturbances Respiratory: No cough, no shortness of air, no recurring pulmonary infections Cardiovascular/peripheral vascular: No chest pain, no palpitations, no edema, no shortness of breath Gastrointestinal: No new onset incontinence, normal bowel movements reported Genitourinary: No new onset incontinence Musculoskeletal: Neck pain with radiation into head, bilateral shoulders and arms with numbness and tingling in hands Psychiatric: Normal mood/affect Neurological: His upper extremities, [denies balance issues] Objective:: Physical exam General: Alert and oriented x3, no acute distress, pleasant and cooperative, [on room air] Lungs: Respirations even and unlabored, symmetrical chest expansion Eyes: PERRL Musculoskeletal: Flexion and extension of cervical spine somewhat guarded secondary to pain, deep tendon reflexes normal, strength in upper and lower extremities 4/5, normal gait noted Neurological: Speech clear, sisal operator equal, no gross sensory deficit Assessment:: Degenerative disc disease cervical spine with cervical radiculopathy symptoms, degenerative disc disease lumbar spine with lumbar radiculopathy symptoms Plan:: We will schedule the patient for cervical epidural steroid injection at C5-C6. We did review her imaging today. Patient is not on any anticoagulation therapy. She is continue with home stretching and anti-inflammatories. She has tried and failed conservative therapies of physical therapy for greater than 6 weeks and home stretching, as well as ice and heat therapies. We will see her back after injection to reevaluate her symptoms. Risks and benefits of the procedure have been explained to the patient. Patient would like to proceed with the procedure. Patient has been instructed to contact the clinic with any concerns before the next appointment. Dr. Edwards has reviewed this note and agrees with this plan of care. This note was dictated using voice recognition software and make contain errors or omissions. [facility] History I have reviewed the patient's past medical history: Yes Medical History: Reports:: Anxiety, Cancer, Congestive Heart Failure, Chronic Obstructive Pulmonary Disease (COPD), Coronary Artery Disease, Depression, Diabetes Mellitus Type 2, Gastroesophageal Reflux Disease(GERD), Hyperlipidemia, Hypertension, Myocardial Infarction Denies:: Diabetes Mellitus Type 1, MRSA *Have you ever received a pneumonia vaccine?: Yes *Have you received a flu vaccine this season?: Yes Other Medical History: Reports: Arthritis, Fibromyalgia, Sinus Problems. Denies: Blood Transfusion Reaction Laterality Cases: Bilateral: Tonsillectomy Other Surgeries: Yes: Cardiac Catheterization, Cholecystectomy, Colonoscopy, Coronary Stent, Dilation and Curettage, EGD, Hysterectomy-Total, Other Amputation: No Fractures: No - *Social History Smoking Stat
== END ==
PROVIDERS: PCP Family Medicine; Visit Provider Clinical Nurse Specialist Family Health
DX: M50.10 Cervical disc disorder with radiculopathy, unspecified cervical region (principal); M51.16 Intervertebral disc disorders with radiculopathy, lumbar region
CPT/HCPCS: 99212; G0463

== ENCOUNTER 2020-10-16 09:03 | Day surgery (SDC) | payer MEDICARE, OTHER, SELFPAY ==
[2020-10-16 09:04] VITALS: BP 111/68; PULSE 78; RESP 18; TEMP 36.6; O2SAT 97; BMI 32.3
[2020-10-16 09:39] VITALS: BP 128/84; PULSE 77; RESP 18; O2SAT 95
[2020-10-16 09:43] VITALS: BP 121/81; PULSE 72; RESP 18; O2SAT 96
[2020-10-16 10:00] VITALS: BP 119/83; PULSE 76; RESP 20; O2SAT 97
--- NOTE | 2020-10-16 10:08 | HMH.PMPROC ---
- Procedure Date: 10/16/20 Time: 10:08 Anesthesiologist:: Liza Curry MD Complications:: None Pre-procedure Diagnosis:: Disc disease of the cervical spine, cervical radiculopathy Post-procedure Diagnosis:: Same Indications for Procedure:: She is a very pleasant 55-year-old white female who we are treating for neck pain radiating into her arms. She states that the left arm is slightly worse than the right. She also notes of numbness and tingling in her hands and has difficulty holding objects and grasping things. She has trialed and failed conservative treatment including oral pain medications, physical therapy for greater than 6 weeks. Of note, she also has degenerative disc disease of the lumbar spine with lumbar radiculopathy and undergoes lumbar epidural steroid injections with greater than 80% pain relief for 2 to 3 months. Procedure Details:: Cervical epidural steroid injection under fluoroscopy Informed consent was obtained and the risks and benefits of the procedure was explained to the patient. The patient was taken to the procedure room placed prone on the procedure table. The neck was prepped using ChloraPrep. The skin and subcutaneous tissues were anesthetized using lidocaine. I placed a 18-gauge epidural needle into the C7-T1 interspace and advanced using [id number] to air and fluoroscopic guidance. After confirmation of needle placement in the epidural space with dye, I injected 1 mL lidocaine 1.5% and Depo-Medrol 80 mg. The patient tolerated the procedure well with no complications. Plan and Disposition:: We will follow-up with this patient in 2 weeks. Will reevaluate pain symptoms at that time. We may also consider a repeat lumbar epidural steroid injection in the future if low back pain radiating into her legs persists.
== END 2020-10-16 10:00 | disposition home or self-care (01) ==
LOC: SC.PAINP 09:04
PROVIDERS: PCP Family Medicine; Visit Provider Anesthesiology Pain Medicine
DX: M50.10 Cervical disc disorder with radiculopathy, unspecified cervical region (principal); I25.2 Old myocardial infarction; I50.9 Heart failure, unspecified; E78.5 Hyperlipidemia, unspecified; I11.0 Hypertensive heart disease with heart failure; J44.9 Chronic obstructive pulmonary disease, unspecified; M79.18 Myalgia, other site; M19.90 Unspecified osteoarthritis, unspecified site; E11.9 Type 2 diabetes mellitus without complications; F41.9 Anxiety disorder, unspecified; F32.9 Major depressive disorder, single episode, unspecified; Z72.0 Tobacco use
CPT/HCPCS: 62321; J1040; Q9966

== ENCOUNTER 2020-10-21 10:05 | Emergency (ER) | payer MEDICARE, OTHER, SELFPAY ==
[2020-10-21 10:14] VITALS: BP 166/101; PULSE 88; RESP 20; TEMP 37.1; O2SAT 96; BMI 73.3
--- NOTE | 2020-10-21 10:25 | XR_ITS ---
PROCEDURE: XR CHEST 2V CLINICAL HISTORY: Congestion COMPARISON: CT CTAC CTA-CHEST from 08/23/2015 CR CXR1 CHEST-PORTABLE from 10/30/2015 CR CXR1 CHEST-PORTABLE from 07/13/2016 CR CXR1 CHEST-PORTABLE from 03/07/2017 FINDINGS: The cardiomediastinal silhouette and pulmonary vascularity are within normal limits. The lungs are clear without infiltrates, suspicious nodules, or pleural effusions. No acute bony abnormalities. IMPRESSION: No acute findings. Dictated by: Ventura Matos MD 10/21/2020 12:34 Ventura Matos MD in [place] 10/21/2020 12:34
--- NOTE | 2020-10-21 10:26 | HMH.EDGENADL ---
ED Disposition Clinical Impression: Sinusitis, Bronchitis Disposition: Home, Self-Care Condition on Discharge: Good Instructions: Sinusitis Additional Instructions: Stop smoking. Medications as directed. Follow-up with your primary care physician. Return to the emergency room for similar symptoms. Prescriptions: Amoxicillin/Potassium Clav [Augmentin 875-125 Tablet] 1 tab PO Q12H 10 Days #20 tab Transmission Status: Pending to [facility] Guaifenesin/Pseudoephedrne HCl [Mucinex D ER 600-60 mg Tablet] 1 tab PO BID 10 Days #20 tab.er.12h Transmission Status: Pending to [facility] Benzonatate [Tessalon Perle 100mg Cap*] 100 mg PO TID 10 Days #30 cap Transmission Status: Pending to [facility] Referrals: Brendan Stevenson MD [Primary Care Provider] - - Critical Care Critical Care Time: No Attestation: On 10/21/20, the high probability of a clinically significant, sudden or life threatening deterioration of the following system(s) required my full and direct attention, intervention and personal management. The time I documented below is in addition to time spent performing reported procedures but includes the following listed in this critical care notation. Medical Decision Making - Medical Records MR Comment: Chest x-ray was done and it was negative. She has symptoms of acute sinusitis mostly involving the left sinus area and acute bronchitis. There was no pneumonia on the chest x-ray. - Dagoberto Inquiry Pt receiving controlled substance: No Dagoberto was queried for this patient: No Vital Signs: 10/21/20 10:14 Temperature 98.7 F Temperature Source Oral Pulse Rate [Radial] 88 Respiratory Rate 20 Blood Pressure [Right Arm] 166/101 H Blood Pressure Mean [Right Arm] 122 Blood Pressure Source [Right Arm] Automatic Cuff Blood Pressure Position [Right Arm] Sitting 02 Sat by Pulse Oximetry 96 Oxygen Delivery Method Room Air Orders (Tests/Meds): ORDERS Category Date Time Status Chest XR 2 view (NOT portable) [XR chest 2V] Stat Exams 10/21/20 10:25 Taken General Adult HPI - General Chief complaint: Fever Stated complaint: cough, congestion, sore throat Time Seen by Provider: 10/21/20 10:25 Mode of Arrival: Ambulatory Source of Information: Patient Limitations: No Limitations Description of Symptoms (Recalled from ER Triage Doc. by RN): Pt complains of sore throat, started a few days ago, she now has increased congestion and productive cough w/ dark yellow sputum, pt states she gets short of air when having coughing spells, febrile x2 days. - History of Present Illness HPI narrative: Complains of upper respiratory congestion that has been going on for 1 week with cough and irritation in the throat and postnasal drainage. She uses inhalers as needed but she is not having any wheezing or shortness of breath. When she blows her nose she gets yellow stuff. Also she has yellow sputum. No fever or chills. No abdominal pain. No chest pain. No nausea or vomiting. No shortness of breath. She has been a smoker for the past 30 years and she smokes about 1 pack/day. Onset (ago): week(s) Location: head Radiation: non-radiation - Related Data Home Medications Medication Instructions Recorded Confirmed aspirin 81 mg tablet,delayed 81 mg PO QDAY 05/22/17 10/16/20 release liraglutide 0.6 mg/0.1 mL (18 mg/3 1.2 mg SUB-Q QDAY ml 05/22/17 10/16/20 mL) subcutaneous pen injector omeprazole 40 mg capsule,delayed 40 mg PO QDAY 05/22/17 10/16/20 release ondansetron 4 mg disintegrating 8 mg PO Q12H PRN 05/22/17 10/16/20 tablet trazodone 50 mg tablet 50 mg PO QHS tab 09/26/17 10/16/20 cetirizine 10 mg capsule 10 mg PO DAILY 10/09/18 10/16/20 potassium chloride 20 mEq 40 meq PO DAILY tab 05/14/19 10/16/20 tablet,extended release(part/cryst) albuterol sulfate 90 mcg/actuation 2 inh INHALATION Q4-6H PRN 07/28/20 10/16/20 breath activated powder inhaler,sensor famotidine
[2020-10-21 11:10] VITALS: BP 136/82; PULSE 82; RESP 18; TEMP 37.2; O2SAT 92
== END 2020-10-21 11:13 | disposition home or self-care (01) ==
PROVIDERS: Emergency Provider Internal Medicine; PCP Family Medicine
DX: J01.90 Acute sinusitis, unspecified (principal); J20.9 Acute bronchitis, unspecified; M79.7 Fibromyalgia; I25.10 Atherosclerotic heart disease of native coronary artery without angina pectoris; F41.8 Other specified anxiety disorders; F17.210 Nicotine dependence, cigarettes, uncomplicated; K21.9 Gastro-esophageal reflux disease without esophagitis
CPT/HCPCS: 71046; 99281; 99282

== ENCOUNTER → 2020-11-05 13:31 | Outpatient (POV) | payer MEDICARE, SELFPAY ==
[2020-11-05 13:45] VITALS: BP 136/85; PULSE 78; RESP 18; O2SAT 95; BMI 33.3
--- NOTE | 2020-11-09 09:43 | HMH.PAINSOAP ---
[facility] Pain Management SOAP Note Subjective:: Patient is a 55-year-old white female who presents today for follow-up. She recently underwent a cervical epidural steroid injection. She is being treated for degenerative disc disease cervical spine with cervical radiculopathy symptoms. She is having pain in bilateral upper extremities, worse to left arm. She is having numbness and tingling in bilateral upper extremities as well as difficulty with grasping objects. She did try and failed conservative therapies before proceeding with injective therapy. Unfortunately, she did not get any relief. She rates her pain a 7 out of 10. Patient says that she does not want to proceed with any further injective therapy and would like to see a neurosurgeon. We will refer her. She has tried and failed conservative therapies physical therapy for more than 6 weeks along with continued home stretching. She is also tried anti-inflammatories in the past. She continues with home stretching. Review of Systems General: No recent weight changes, no fever, no sleep disturbances Respiratory: No cough, no shortness of air, no recurring pulmonary infections Cardiovascular/peripheral vascular: No chest pain, no palpitations, no edema, no shortness of breath Gastrointestinal: No new onset incontinence, normal bowel movements reported Genitourinary: No new onset incontinence Musculoskeletal: Neck pain, bilateral upper extremity pain Psychiatric: Normal mood/affect Neurological: [Denies weakness in extremities], [denies balance issues] Objective:: Physical exam General: Alert and oriented x3, no acute distress, pleasant and cooperative, [on room air] Lungs: Respirations even and unlabored, symmetrical chest expansion Eyes: PERRL Musculoskeletal: Flexion and extension of [] cervical spine somewhat guarded secondary to pain, deep tendon reflexes normal, strength in upper and lower extremities [5/5], normal gait noted Neurological: Speech clear, instructional services librarian equal, no gross sensory deficit Assessment:: Degenerative disc disease cervical spine with cervical radiculopathy symptoms Plan:: We will refer the patient to Dr. Cool. She has tried and failed injective therapy in the clinic with cervical epidural steroid injections along with continued home stretching. She is also tried anti-inflammatories and 6 weeks of physical therapy. We will see her back after her visit with Dr. Dhaliwal to reevaluate her symptoms. If she is not considered a neurosurgical candidate, we will discuss possible intrathecal therapy versus spinal cord stimulation. Patient has been instructed to contact the clinic with any concerns before the next appointment. Dr. Edwards has reviewed this note and agrees with this plan of care. This note was dictated using voice recognition software and make contain errors or omissions. [facility] History I have reviewed the patient's past medical history: Yes Medical History: Reports:: Anxiety, Congestive Heart Failure, Chronic Obstructive Pulmonary Disease (COPD), Coronary Artery Disease, Depression, Diabetes Mellitus Type 2, Gastroesophageal Reflux Disease(GERD), Hyperlipidemia, Hypertension, Myocardial Infarction Denies:: Cancer, Diabetes Mellitus Type 1, MRSA, Seizures *Have you ever received a pneumonia vaccine?: Yes *Have you received a flu vaccine this season?: Yes Other Medical History: Reports: Arthritis, Fibromyalgia, Sinus Problems. Denies: Blood Transfusion Reaction Laterality Cases: Bilateral: Tonsillectomy Other Surgeries: Yes: Cardiac Catheterization, Cholecystectomy, Colonoscopy, Coronary Stent, Dilation and Curettage, EGD, Hysterectomy-Total, Other Amputation: No Fractures: No - *Social History Smoking Status: Current every day smoker Tobacco Type: cigarettes # Packs/Day (cigarettes): 1 #Yrs smoked (if former smoker): 30 Alcohol Intake: never Alcohol Intake Frequency:: other Substance Use Type: denies use *Occupational Status:: unemployed H
== END ==
PROVIDERS: PCP Family Medicine; Visit Provider Clinical Nurse Specialist Family Health
DX: M50.10 Cervical disc disorder with radiculopathy, unspecified cervical region (principal)
CPT/HCPCS: 99212; G0463

== ENCOUNTER → 2020-11-11 12:41 | Outpatient (POV) | payer MEDICARE, OTHER, SELFPAY | DX: Z00.00 Encounter for general adult medical examination without abnormal findings (principal) ==

== ENCOUNTER → 2021-01-07 12:54 | Outpatient (POV) | payer MEDICARE, SELFPAY ==
--- NOTE | 2021-01-07 13:07 | HMH.PAINSOAP ---
[facility] Pain Management SOAP Note Subjective:: Patient is a 55-year-old white female who presents today for follow-up. The patient is being treated for degenerative disc disease cervical and lumbar spine with cervical and lumbar radicular symptoms. She does have an appointment with Dr. Medley on March 08 for neurosurgical evaluation. She is continuing to have severe low back pain with radiation into her bilateral lower extremities. She says the pain is now radiating into her bilateral groin area as well. She says that it is a fire-like sensation to the area. She is having bilateral foot pain with numbness and tingling. She has had lumbar epidural steroid injections in the past and got between 70 to 80% relief. She says she gets between 3 to 4 weeks of relief with the injections. She has tried physical therapy for greater than 6 weeks and continues with home stretching. She does take anti-inflammatories. She is not on any anticoagulation therapy. Patient does take [place] prescribed by Dr. Stevenson. She does get gabapentin 300 mg 1 tablet p.o. 4 times daily by our clinic. Review of Systems General: No recent weight changes, no fever, no sleep disturbances Respiratory: No cough, no shortness of air, no recurring pulmonary infections Cardiovascular/peripheral vascular: No chest pain, no palpitations, no edema, no shortness of breath Gastrointestinal: No new onset incontinence, normal bowel movements reported Genitourinary: No new onset incontinence Musculoskeletal: Low back pain with radiation into bilateral lower extremities Psychiatric: [Normal mood/affect] Neurological: [Denies weakness in extremities], [denies balance issues] Objective:: Physical exam General: Alert and oriented x3, no acute distress, pleasant and cooperative, [on room air] Lungs: Respirations even and unlabored, symmetrical chest expansion Eyes: PERRL Musculoskeletal: Flexion and extension of lumbar [spine] somewhat guarded secondary to pain, strength in upper and lower extremities [5/5], [antalgic gait noted] Neurological: Speech clear, [drone pilot equal], no gross sensory deficit Assessment:: Degenerative disc disease lumbar spine with lumbar radiculopathy symptoms Plan:: We will schedule the patient for lumbar epidural steroid injection at L4-L5. She is awaiting neurosurgical evaluation with Dr. Medley. She would not be able to get him with him and he will March 08. Her pain is an 8 to a 9 out of 10 today. We will perform injective therapy on her while she is awaiting her neurosurgical visit. She does not need refills on gabapentin at this time. She is diabetic. She has been advised to use caution and closely monitor her blood glucose levels 72 hours postinjection. She is in agreement. She has also been advised if she has elevated blood glucose levels along with symptoms of hyperglycemia to contact her PCP or ER. She is in agreement. Possible side effects of corticosteroids have been discussed with the patient. Risks and benefits of the procedure have been explained to the patient. Patient would like to proceed with the procedure. Patient has been instructed to contact the clinic with any concerns before the next appointment. Dr. Edwards has reviewed this note and agrees with this plan of care. This note was dictated using voice recognition software and make contain errors or omissions. [facility] History I have reviewed the patient's past medical history: Yes Medical History: Reports:: Anxiety, Congestive Heart Failure, Chronic Obstructive Pulmonary Disease (COPD), Coronary Artery Disease, Depression, Diabetes Mellitus Type 2, Gastroesophageal Reflux Disease(GERD), Hyperlipidemia, Hypertension, Myocardial Infarction Denies:: Cancer, Diabetes Mellitus Type 1, MRSA, Seizures *Have you ever received a pneumonia vaccine?: No *Have you received a flu vaccine this season?: Yes Other Medical History: Reports: Arthritis, Fibromyalgia, Sinus Problems. Denies: Bloo
== END ==
PROVIDERS: Visit Provider Clinical Nurse Specialist Family Health
DX: M51.16 Intervertebral disc disorders with radiculopathy, lumbar region (principal)
CPT/HCPCS: 99212; G0463

== ENCOUNTER 2021-01-15 08:21 | Day surgery (SDC) | payer MEDICARE, SELFPAY ==
[2021-01-15 08:36] VITALS: BP 123/76; PULSE 77; RESP 18; TEMP 36.4; O2SAT 92; BMI 32.3
[2021-01-15 09:16] VITALS: BP 104/72; PULSE 75; RESP 18; O2SAT 95
--- NOTE | 2021-01-15 09:31 | HMH.PMPROC ---
- Procedure Date: 01/15/21 Time: 09:31 Anesthesiologist:: Nilay Edwards MD Complications:: None Pre-procedure Diagnosis:: Degenerative disc disease of lumbar spine with lumbar radiculopathy symptoms Post-procedure Diagnosis:: Same Indications for Procedure:: Patient is a pleasant 55-year-old white female who we are treating for low back pain with lumbar radiculopathy symptoms. She is awaiting an appointment with Dr. Medley. These injections have helped her in the past. Will do repeat lumbar epidural steroid injection under fluoroscopy today. Procedure Details:: Informed consent was obtained and the risk and benefits of the procedure was explained to the patient. The patient was taken to the procedure room. The patient was placed prone on the procedure table. The patient was prepped and draped in sterile fashion. C-arm fluoroscopy was used to view the lumbar spine. Skin and subcutaneous tissues were anesthetized using lidocaine. I placed an 18-gauge epidural needle and advanced into the L4-L5 interspace using fluoroscopic guidance and [id number] to air. After confirmation of needle placement in the epidural space with dye I injected 2 mL of lidocaine 1.5% with Depo-Medrol 80 mg. Patient tolerated the procedure well with no complications. Plan and Disposition:: We will follow-up with her in 2 weeks. Will reevaluate symptoms at that time.
[2021-01-15 09:35] VITALS: BP 117/70; PULSE 74; RESP 20; O2SAT 93
== END 2021-01-15 09:39 | disposition home or self-care (01) ==
LOC: SC.PAINP 08:22
PROVIDERS: PCP Family Medicine; Visit Provider Anesthesiology
DX: M51.16 Intervertebral disc disorders with radiculopathy, lumbar region (principal)
CPT/HCPCS: 62323; J1040; Q9966

== ENCOUNTER → 2021-02-01 09:12 | Outpatient (POV) | payer MEDICARE, SELFPAY ==
[2021-02-01 09:33] VITALS: BP 133/72; PULSE 78; RESP 18; O2SAT 95; BMI 30.7
--- NOTE | 2021-02-01 10:24 | HMH.PAINSOAP ---
[facility] Pain Management SOAP Note Subjective:: Patient is a pleasant 55-year-old white female who presents today for follow-up after a lumbar epidural steroid injection. Patient reports that she got excellent relief with the injection and is not having any pain in her low back area at this time. She does say, however, she is continuing to have significant pain in her neck with radiation into her upper extremities. The patient is having numbness and tingling to the lateral aspect of bilateral upper extremities. She does rate her pain a 6 or 7 to her neck and bilateral upper extremities. She is trying failed conservative therapies of physical therapy for greater than 6 weeks along with continued home stretching. She is scheduled to see Dr. Medley on March 08 for continued neck pain. Until that time, she would like to try a cervical epidural steroid injection. She has had these injections in the past and gets significant relief, up to 70 to 80% relief for 2 to 3 weeks. Review of Systems General: No recent weight changes, no fever, no sleep disturbances Respiratory: No cough, no shortness of air, no recurring pulmonary infections Cardiovascular/peripheral vascular: No chest pain, no palpitations, no edema, no shortness of breath Gastrointestinal: No new onset incontinence, normal bowel movements reported Genitourinary: No new onset incontinence Musculoskeletal: Neck pain with radiation into bilateral upper extremities Psychiatric: [Normal mood/affect] Neurological: [Denies weakness in extremities], [denies balance issues] Objective:: Physical exam General: Alert and oriented x3, no acute distress, pleasant and cooperative Lungs: Respirations even and unlabored, symmetrical chest expansion Eyes: PERRL Musculoskeletal: Flexion and extension of cervical [spine] somewhat guarded secondary to pain, [antalgic gait noted] Neurological: Speech clear, no gross sensory deficit Assessment:: Degenerative disc disease cervical spine cervical radiculopathy symptoms Plan:: We will schedule the patient for cervical epidural steroid injection at C6-C7 area. She is not on any anticoagulation therapy. We will follow up with her after the injection for reevaluation of symptoms. Possible side effects of corticosteroids have been discussed with the patient. Risks and benefits of the procedure have been explained to the patient. Patient would like to proceed with the procedure. Patient has been instructed to contact the clinic with any concerns before the next appointment. Dr. Edwards has reviewed this note and agrees with this plan of care. This note was dictated using voice recognition software and make contain errors or omissions. [facility] History I have reviewed the patient's past medical history: Yes Medical History: Reports:: Anxiety, Congestive Heart Failure, Chronic Obstructive Pulmonary Disease (COPD), Coronary Artery Disease, Depression, Diabetes Mellitus Type 2, Gastroesophageal Reflux Disease(GERD), Hyperlipidemia, Hypertension, Myocardial Infarction Denies:: Cancer, Diabetes Mellitus Type 1, MRSA, Seizures *Have you ever received a pneumonia vaccine?: Yes *Have you received a flu vaccine this season?: No Other Medical History: Reports: Arthritis, Fibromyalgia, Sinus Problems. Denies: Blood Transfusion Reaction Laterality Cases: Bilateral: Tonsillectomy Other Surgeries: Yes: Cardiac Catheterization, Cholecystectomy, Colonoscopy, Coronary Stent, Dilation and Curettage, EGD, Hysterectomy-Total, Other Amputation: No Fractures: No - *Social History Smoking Status: Current every day smoker Tobacco Type: cigarettes # Packs/Day (cigarettes): 1 #Yrs smoked (if former smoker): 30 Alcohol Intake: never Alcohol Intake Frequency:: other Substance Use Type: denies use *Occupational Status:: unemployed Housing: house Household Members: family *Travel in the last 8 weeks: None - Psychiatric History Pschychiatric History:: Reports:: Anxiet
== END ==
PROVIDERS: Visit Provider Clinical Nurse Specialist Family Health
DX: M50.10 Cervical disc disorder with radiculopathy, unspecified cervical region (principal)
CPT/HCPCS: 99212; G0463

== ENCOUNTER → 2021-02-08 10:58 | Outpatient (CLI) | payer MEDICARE, SELFPAY ==
--- NOTE | 2021-02-08 10:58 | MM_ITS ---
PROCEDURE INFORMATION: Exam: MG Bilateral Screening 3D Mammography Exam date and time: 02/08/2021 10:58 AM Age: 55 years old Clinical indication: Encounter for screening mammogram for malignant neoplasm of breast TECHNIQUE: Imaging protocol: Bilateral screening tomosynthesis and 2D mammography including computer-aided detection (CAD) when performed. COMPARISON: 1. MG MM DIG SCREENING MAMM BI W/CAD 02/06/2020 9:04 AM 2. MG MM DIG SCREENING MAMM BI W/CAD 02/19/2019 8:45 AM FINDINGS: MAMMOGRAPHY: Breast composition: The breasts are almost entirely fatty. Mass: None. Architectural distortion: None. Calcifications: No suspicious calcifications. Asymmetric density: None. Skin thickening: None. Axillary adenopathy: None. IMPRESSION: No mammographic evidence of malignancy. Annual screening is recommended unless otherwise clinically indicated. ASSESSMENT: BI-RADS Category 1: Negative
== END ==
PROVIDERS: PCP Family Medicine; Visit Provider Family Medicine
DX: Z12.31 Encounter for screening mammogram for malignant neoplasm of breast (principal)
CPT/HCPCS: 77063; 77067

== ENCOUNTER 2021-02-12 13:40 | Day surgery (SDC) | payer MEDICARE, SELFPAY ==
[2021-02-12 14:14] VITALS: BP 151/88; PULSE 79; RESP 18; TEMP 36.4; O2SAT 99; BMI 33.6
--- NOTE | 2021-02-12 15:24 | HMH.PMPROC ---
- Procedure Date: 02/12/21 Time: 15:24 Anesthesiologist:: Nilay Edwards MD Complications:: None Pre-procedure Diagnosis:: Degenerative disc disease of the cervical spine with cervical radiculopathy symptoms Post-procedure Diagnosis:: Same Indications for Procedure:: Patient is a pleasant 55-year-old white female who we are treating for neck pain with cervical radicular symptoms. She has increasing pain in her neck radiating to both shoulders. We will plan on a cervical epidural steroid injection today to help with her pain symptoms. Procedure Details:: Cervical epidural steroid injection under fluoroscopy Informed consent was obtained and the risks and benefits of the procedure was explained to the patient. The patient was taken to the procedure room placed prone on the procedure table. The neck was prepped using ChloraPrep. The skin and subcutaneous tissues were anesthetized using lidocaine. I placed a 18-gauge epidural needle into the C5-C6 interspace and advanced using [id number] to air and fluoroscopic guidance. After confirmation of needle placement in the epidural space with dye, I injected 3 mL's lidocaine 1.5% and Depo-Medrol 80 mg. The patient tolerated the procedure well with no complications. Plan and Disposition:: We will follow-up with her in 2 weeks. Will reevaluate symptoms at that time.
[2021-02-12 15:25] VITALS: BP 113/77; PULSE 81; RESP 20; O2SAT 98
[2021-02-12 15:26] VITALS: BP 143/85; PULSE 88; RESP 20; O2SAT 94
[2021-02-12 15:46] VITALS: BP 161/90; PULSE 79; RESP 18; TEMP 36.4; O2SAT 99
== END 2021-02-12 15:40 | disposition home or self-care (01) ==
LOC: SC.PAINP 13:41
PROVIDERS: PCP Family Medicine; Visit Provider Anesthesiology
DX: M50.10 Cervical disc disorder with radiculopathy, unspecified cervical region (principal); E78.5 Hyperlipidemia, unspecified; I25.10 Atherosclerotic heart disease of native coronary artery without angina pectoris; Z72.0 Tobacco use; I10 Essential (primary) hypertension; Z95.5 Presence of coronary angioplasty implant and graft; K21.9 Gastro-esophageal reflux disease without esophagitis; F41.9 Anxiety disorder, unspecified; F32.9 Major depressive disorder, single episode, unspecified; J44.9 Chronic obstructive pulmonary disease, unspecified; E11.9 Type 2 diabetes mellitus without complications; Z88.8 Allergy status to other drugs, medicaments and biological substances
CPT/HCPCS: 62321; J1040; Q9966

== ENCOUNTER 2021-03-11 10:55 | Outpatient (CLI) | payer MEDICARE, MEDICAID, SELFPAY ==
[2021-03-11 11:25] VITALS: BP 128/81; PULSE 84; RESP 18; O2SAT 98
== END 2021-03-11 11:25 | disposition home or self-care (01) ==
LOC: INF 10:57
PROVIDERS: PCP Family Medicine; Visit Provider Family Medicine
DX: M81.8 Other osteoporosis without current pathological fracture (principal)
CPT/HCPCS: 96372; J0897

== ENCOUNTER → 2021-03-16 09:52 | Outpatient (CLI) | payer MEDICARE, MEDICAID, SELFPAY ==
--- NOTE | 2021-03-16 09:54 | XR_ITS ---
PROCEDURE: XR CHEST 2V CLINICAL HISTORY: cough with fever COMPARISON: CT CTAC CTA-CHEST from 08/23/2015 CR CXR1 CHEST-PORTABLE from 07/13/2016 CR CXR1 CHEST-PORTABLE from 03/07/2017 CR XR CHEST 2V from 10/21/2020 FINDINGS: The cardiomediastinal silhouette and pulmonary vascularity are within normal limits. Minimal atelectatic change in the left lower lung zone medially. The lungs are otherwise clear. No acute bony abnormalities. IMPRESSION: Minimal left sided atelectatic change otherwise negative Dictated by: Ventura Matos MD 03/16/2021 15:47 Ventura Matos MD in OV 03/16/2021 15:47
== END ==
PROVIDERS: PCP Family Medicine; Visit Provider Family Medicine
DX: R69 Illness, unspecified (principal); Z20.822 Contact with and (suspected) exposure to COVID-19
CPT/HCPCS: 71046; C9803; U0003; U0005

== ENCOUNTER → 2021-03-16 14:26 | Outpatient (CLI) | payer MEDICARE, MEDICAID, SELFPAY | PROVIDERS: Visit Provider Family Medicine | DX: Z20.822 Contact with and (suspected) exposure to COVID-19 (principal) | CPT/HCPCS: C9803; U0003; U0005 ==

== ENCOUNTER → 2021-06-04 13:42 | Outpatient (CLI) | payer MEDICARE, MEDICAID, SELFPAY | PROVIDERS: PCP Family Medicine; Visit Provider Nurse Practitioner | DX: Z20.822 Contact with and (suspected) exposure to COVID-19 (principal) | CPT/HCPCS: C9803; U0003; U0005 ==

== ENCOUNTER → 2021-06-29 16:00 | Outpatient (CLI) | payer MEDICARE, MEDICAID, SELFPAY ==
[2021-06-29 14:26] LABS: Chloride 99 mmol/L (98-107); Potassium 4.6 mmoL/L (3.5-5.1); Sodium 135 mmol/L (136-145)
[2021-06-29 14:29] LABS: Alanine Aminotransferase 18 U/L (12-78); Albumin Level 4.6 g/dl (3.5-5.0); Albumin/Globulin Ratio 1.5 (1.1-1.8); Alkaline Phosphatase 122 U/L (38-126); Anion Gap 9.6 mEq/L (5-15); Aspartate Amino Transferase 29 U/L (14-36); Bilirubin,Total 0.4 mg/dl (0.2-1.3); Blood Urea Nitrogen 9 mg/dl (7-17); Carbon Dioxide 31 mmol/L (22.0-30.0); Estimated Glomerular Filt Rate 74 ml/min (>60); GFR (African American) 90 ML/MIN (>60); Globulin 3.1 g/dL (1.3-3.2); Total Protein,Serum 7.7 g/dl (6.3-8.2)
[2021-06-29 14:30] LABS: Calcium 8.5 mg/dl (8.4-10.2); Glucose 76 mg/dl (74-100)
== END ==
PROVIDERS: Visit Provider Family Medicine
DX: Z00.00 Encounter for general adult medical examination without abnormal findings (principal)
CPT/HCPCS: 80053

== ENCOUNTER → 2021-07-06 13:01 | Outpatient (CLI) | payer MEDICARE, MEDICAID, SELFPAY ==
--- NOTE | 2021-07-06 13:01 | MR_ITS ---
FINAL REPORT CLINICAL HISTORY: poss Meniers disease/hearing loss FINDINGS: Multiplanar MR imaging of the brain was performed without contrast. There are scattered foci of increased T2 signal in the cerebral white matter that have a nonspecific appearance but likely represent mild chronic ischemic/gliotic changes. There is no evidence of intracranial hemorrhage or mass. The ventricular size is normal. There is no evidence of shift of the midline structures. No abnormal extra-axial fluid collection is identified. The posterior fossa and brainstem have an unremarkable appearance. No area of abnormal restricted diffusion is identified. Normal major vessel vascular flow voids are seen. IMPRESSION: No acute intracranial abnormality. Scattered foci of increased T2 signal in the cerebral white matter that have a nonspecific appearance but likely represent mild chronic ischemic/gliotic changes. Reviewed, Interpreted and Dictated by Rangel Pinon III, MD Transcribed by Yesi Kenney Authenticated by Rangel Pinon III, MD on 07/06/2021 03:37:12 PM [facility]
== END ==
PROVIDERS: PCP Family Medicine; Visit Provider Student in an Organized Health Care Education/Training Program
DX: H81.09 Meniere's disease, unspecified ear (principal)
CPT/HCPCS: 70551

== ENCOUNTER 2021-07-08 09:00 | Outpatient (RCR) | payer MEDICARE, MEDICAID, SELFPAY ==
--- NOTE | 2021-06-28 09:57 | HMH.PTOPEV ---
PT Outpatient Evaluation Rehab PT Outpatient Evaluation Start: 06/28/21 09:09 Freq: Status: Active Protocol: Document 06/28/21 09:16 CATARINOJAMA (Rec: 06/28/21 09:57 POLLO [id number]) Electronically Signed By Nabeel Simon PT 06/28/21 09:16 Outpatient Therapy Subjective History Subjective History This is the initial physical therapy vestibular evaluation for Rebeca Bassett. 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 Pt states that ~ 1 year ago she began having chronic dizziness that would fluctuate in severity. Pt reports that her vision ids being affected and she is starting to bump into things and people . Pt does state that after she takes her medicine at night she does not usually get out of bed because her dizzyness is increased. Of not she takes her BP medicine in the evening . Chief Complaint Other Symptom Type Other Symptoms Relieved By Nothing Symptoms Aggravated By Sitting,Standing,Bending/ Stooping,Physical Activity, Twisting,Walking Current Functional Limitations Housework,Driving,Standing, Sitting,Recreation Activity, Walking,Stairs,Balance,Bending /Stooping Symptom Description Constant but Variable Balance Eval Chief Complaint vertigo No Did you feel dizzy, unsteady or faint? Yes Hx of Falls Hx Falls No Gait/Posture Asssessment General Gait Observation Wide Based Gait Assistive Devices None / NA Level of Transfer Assist Independent Hip Observation in Gait Swing Externally Rotated Hip Observation in Gait Stance Externally Rotated Ankle/Foot Observation in Gait Swing Decreased Foot Clearance Body Alignment Posture Thoracic Kyphosis,Forward Head Nystagmus Nystagmus Presence None Oculomotor Gaze Oculomotor Gaze Nml: Smooth Pursuit Saccades Cover/Uncover Cross Cover Abn: [facility]erg[facility] Cancella
== END 2021-07-08 09:05 | disposition home or self-care (01) ==
LOC: PT 09:00
PROVIDERS: PCP Family Medicine; Visit Provider Student in an Organized Health Care Education/Training Program
DX: R42 Dizziness and giddiness (principal); H91.09 Ototoxic hearing loss, unspecified ear
CPT/HCPCS: 97110; 97163

== ENCOUNTER → 2021-07-23 10:17 | Outpatient (CLI) | payer MEDICARE, MEDICAID, SELFPAY ==
[2021-07-23 13:38] LABS: Blood Urea Nitrogen 11 mg/dl (7-17); Estimated Glomerular Filt Rate 65 ml/min (>60); GFR (African American) 78 ML/MIN (>60)
== END ==
PROVIDERS: Visit Provider Student in an Organized Health Care Education/Training Program
DX: H81.09 Meniere's disease, unspecified ear (principal); H81.10 Benign paroxysmal vertigo, unspecified ear
CPT/HCPCS: 36415; 82565; 84520

== ENCOUNTER → 2021-08-02 09:04 | Outpatient (CLI) | payer MEDICARE, MEDICAID, SELFPAY ==
--- NOTE | 2021-08-02 09:08 | MR_ITS ---
FINAL REPORT CLINICAL HISTORY: temporal bone protocol. hearing loss worse in rt ear. symptoms [id number]. dizziness, blurred vision and headache. prior mr 07-06-21 17ml prohance given. COMPARISON: 07/06/2021 FINDINGS: Multiplanar MR imaging of the brain was performed without and with contrast, with attention to the posterior fossa, cerebellopontine angles and internal auditory canals. There is no evidence of intracranial hemorrhage or mass. The ventricular size is within normal limits. There is no evidence of shift of the midline structures. No area of abnormal restricted diffusion is identified. Normal major vessel vascular flow voids are seen. No abnormal contrast enhancement is identified within the brain. No mass or abnormal contrast enhancement is seen within the cerebellopontine angles or internal auditory canals. No focal abnormality is identified of the temporal bones. There is lobular mucoperiosteal thickening of the right maxillary sinus, ethmoid air cells and frontal sinuses. IMPRESSION: No acute intracranial abnormality identified. No mass or abnormal contrast enhancement identified within the cerebellopontine angles or internal auditory canals. Chronic sinusitis as above. Reviewed, Interpreted and Dictated by Miky Cardona MD Transcribed by Nancy Delcid Authenticated by Miky Cardona MD on 08/02/2021 12:18:00 PM [facility]
== END ==
PROVIDERS: PCP Family Medicine; Visit Provider Student in an Organized Health Care Education/Training Program
DX: H81.09 Meniere's disease, unspecified ear (principal); H81.10 Benign paroxysmal vertigo, unspecified ear
CPT/HCPCS: 70553; A9576

== ENCOUNTER → 2021-09-07 11:38 | Outpatient (CLI) | payer MEDICARE, MEDICAID, SELFPAY ==
--- NOTE | 2021-09-07 11:45 | XR_ITS ---
FINAL REPORT CLINICAL HISTORY: tob use COMPARISON: March 16, 2021 FINDINGS: Two views of the chest were obtained. The heart size and pulmonary vascularity are within normal limits. The mediastinum is normal. No acute pulmonary abnormality is identified. There is no pneumothorax. The bony thorax is intact. IMPRESSION: No active cardiopulmonary disease. Reviewed, Interpreted and Dictated by Rangel Pinon III, MD Transcribed by Elaine Walker Authenticated by Rangel Pinon III, MD on 09/07/2021 01:06:[address] [facility]
[2021-09-07 12:54] LABS: Basophils # 0.1 K/mm3 (0-0.2); Basophils % 0.8 % (0.1-2.0); Eosinophils # 0.5 K/mm3 (0.0-0.4); Eosinophils % 4.7 % (0.1-12.0); Hematocrit 47.1 % (37.0-47.0); Hemoglobin 16.1 g/dL (12.2-16.2); Lymphocytes # 2.5 K/mm3 (0.7-4.5); Lymphocytes % 23.9 % (10-50); Mean Corpuscular HGB Conc 34.2 g/dL (31.8-35.4); Mean Corpuscular Hemoglobin 32.2 pg (27.0-31.2); Mean Corpuscular Volume 94.2 fl (81-99); Mean Platelet Volume 9.1 fl (7.4-10.4); Monocytes # 0.6 K/mm3 (0.1-1.0); Monocytes % 5.7 % (1.7-9.3); Neutrophils # 6.8 K/mm3 (1.8-7.8); Neutrophils % 64.9 % (37.0-80.0); Platelet Count 240 K/mm3 (142-424); Red Cell Distribution Width 13.4 % (11.5-17.5); White Blood Count 10.5 K/mm3 (4.8-10.8)
[2021-09-07 13:12] LABS: Chloride 100 mmol/L (98-107); Sodium 137 mmol/L (136-145)
[2021-09-07 13:13] LABS: Potassium 4.2 mmoL/L (3.5-5.1)
[2021-09-07 13:15] LABS: Alanine Aminotransferase 20 U/L (12-78); Albumin Level 4.1 g/dl (3.5-5.0); Alkaline Phosphatase 114 U/L (38-126); Anion Gap 9.2 mEq/L (5-15); Aspartate Amino Transferase 25 U/L (14-36); Bilirubin,Direct 0.1 mg/dl (0.0-0.4); Bilirubin,Indirect 0.2 mg/dL (0.0-0.9); Bilirubin,Total 0.3 mg/dl (0.2-1.3); Bilirubin,Unconjugated 0.3 mg/dL (0.0-1.1); Blood Urea Nitrogen 9 mg/dl (7-17); Calcium 9.5 mg/dl (8.4-10.2); Carbon Dioxide 32 mmol/L (22.0-30.0); Cholesterol 121 mg/dl (140-200); Estimated Glomerular Filt Rate 74 ml/min (>60); GFR (African American) 90 ML/MIN (>60); Glucose 79 mg/dl (74-100); Triglycerides 211 mg/dl (30-150); VLDL Cholesterol 42 mg/dL (0-40)
[2021-09-07 13:16] LABS: Chol/HDL Ratio 3.4 (1-3.5); HDL Cholesterol 36 mg/dl (40-60); Magnesium 1.8 mg/dl (1.6-2.3)
[2021-09-07 13:27] LABS: Direct LDL Cholesterol 58.83 mg/dL (100-129)
[2021-09-07 13:33] LABS: Free T4 (Free Thyroxine) 1.07 ng/dl (0.78-2.19)
[2021-09-07 13:47] LABS: Thyroid Stimulating Hormone 1.87 uIU/mL (0.465-4.68)
== END ==
PROVIDERS: PCP Family Medicine; Visit Provider Physician Assistant
DX: E66.01 Morbid (severe) obesity due to excess calories (principal); E78.2 Mixed hyperlipidemia; I11.0 Hypertensive heart disease with heart failure; I50.32 Chronic diastolic (congestive) heart failure; R60.1 Generalized edema; Z72.0 Tobacco use; Z95.5 Presence of coronary angioplasty implant and graft; Z68.33 Body mass index [BMI] 33.0-33.9, adult; I20.8 Other forms of angina pectoris
CPT/HCPCS: 36415; 71046; 80048; 80061; 80076; 83735; 84439; 84443; 85025

== ENCOUNTER 2021-09-10 10:39 | Outpatient (CLI) | payer MEDICARE, MEDICAID, SELFPAY ==
[2021-09-10 10:55] VITALS: BP 121/70; PULSE 74; RESP 18; O2SAT 96
== END 2021-09-10 11:15 | disposition home or self-care (01) ==
LOC: INF 10:39
PROVIDERS: PCP Family Medicine; Visit Provider Family Medicine
DX: M81.8 Other osteoporosis without current pathological fracture (principal)
CPT/HCPCS: 96372; J0897

== ENCOUNTER → 2021-09-22 06:29 | Outpatient (CLI) | payer MEDICARE, MEDICAID, SELFPAY ==
--- NOTE | 2021-09-22 06:30 | CA_ITS ---
APPROVED REPORT EXAM: Comprehensive 2D, Doppler, and color-flow Echocardiogram Horticulture Worker: Amanda aMrtinez CRT Ht: 5 ft 6 in Wt: 209lbs BSA: 2.04 BP: 112/76 mmHg Indications: Chest Pain, Congestive Heart Failure, COPD, Shortness of Breath, Obesity, CAD, Hyperlipidemia, Hypertension/HDD 2D Dimensions LVOT 1.95 cm (M/F) 1.5-2.5 LA Volume 25.20 mL LA Volume Index 12.40 mL/m2 (M/F) 16-34 M-Mode Dimensions RVDd 2.69 cm (0.9-2.6) LA Diam 2.87 cm (1.9-4.0) LVDd 4.02 cm (3.5-5.7) Ao Diam 3.35 cm (2.0-3.7) LVDs 2.69 cm (3.5-5.7) IVSd 1.37 cm (0.6-1.1) PWd 0.56 cm (0.6-1.1) EF (Teich) 62.10% FS 33.10% EDV (Teich) 70.80 mL TAPSE 2.02 (<1.7) ESV (Teich) 26.80 mL LV Diastology E Decel Time 197.00 (160-240 msec) E/A Ratio 0.75 MED E' 5.70 (< 7 cm/sec) MED A' 9.70 cm/s E'/MED E' Ratio 8.93 (>14) LAT E' 8.20 (<10 cm/sec) LAT A' 11.40 cm/s E/LAT E' Ratio 6.21 (>14) Aortic Valve AO Peak GR. 6.90 mmHg Mitral Valve MV A Velocity 68.00 (40-130 cm/s) E/A Ratio 0.75 MV Decel. Time 197.00 (160-240 ms) Pulmonary Valve PV Peak Velocity 108.00 (50-150 cm/s) Tricuspid Valve TR P. Velocity 201.00 cm/s RAP Estimate 10.00 mmHg RVSP 26.20 mmHg Left Ventricle Left atrium is mildly enlarged, left ventricle is normal size, mild concentric left ventricular hypertrophy, estimated ejection fraction 55% with no regional wall motion abnormality, grade 1 diastolic dysfunction seen without tissue Doppler evidence of raise left atrial pressure. Right Ventricle Right atrium and right ventricle are normal size and contractility. Aortic Valve Aortic valve is minimally thickened and fibrosed there is no aortic stenosis or aortic insufficiency. Mitral Valve Mitral valve is grossly normal, there is trace mitral regurgitation. Tricuspid Valve Tricuspid valve grossly normal, there is trace tricuspid regurgitation, tricuspid regurgitation jet velocity is inadequate for calculation of the right ventricular systolic pressure. Pulmonic Valve Pulmonic valve is poorly visualized. Great Vessels Aortic root is normal size. Inferior vena cava is normal size with normal inspiratory collapse. Pericardium No significant pericardial effusion noted. Conclusion 1. Mildly enlarged left atrium, normal left ventricular size, mild concentric left ventricular hypertrophy, estimated ejection fraction 55% with no regional wall motion abnormality, grade 1 diastolic dysfunction seen without tissue Doppler evidence of raise left atrial pressure. 2. Trace mitral and tricuspid regurgitation. 3. No significant pericardial effusion. 4. Inferior vena cava is normal size with normal inspiratory collapse. Electronically signed by : Scout Guillen MD 09/22/2021 18:10:38
--- NOTE | 2021-09-22 06:30 | NM_ITS ---
APPROVED REPORT Exam: Nuclear Stress Test Indication: chest pain..short of breath..fatigue Patient Location: Outpatient Stress Tech: Genet Acevedo [place] Tech:AYO Hernandez RT(R)(N) Ht: 5 ft 5 in Wt: 200 lbs Bra Size: 44dd HR: 67 bpm BP: 103/61 mmHg BSA: 1.98 m2 TID: 1.15 BMI: 33.2 History: chest pain..short of breath..fatigue Procedure: Patient received a 0.4 mg of intravenous Lexiscan, resting heart rate 67 bpm, resting blood pressure 103/61 mmHg, with Lexiscan maximum heart rate achived was 96 bpm which is Less than 85 % of the maximum predicted heart rate and blood pressure was 116/68 mmHg. With Lexiscan, patient denied any complaint of chest pain. Electrocardiogram Resting electrocardiogram shows sinus rhythm, with Lexiscan there is less than 1.[address] segment depression noted from the baseline EKG. The EKG portion of the Lexiscan is nondiagnostic. Cardiac Stress and Resting SPECT Images: Cardiac Stress and Resting SPECT images were obtained using technetium 99m Myoview 30.9 mCi stress and 10.01 mCi at rest. Gated SPECT for analysis of segmental wall motion and calculation of the ejection fraction also done. Prone images were also obtained. Cardiac stress and rest SPECT may show uniform myocardial activity without segmental perfusion abnormality, computer derived ejection fraction is 60% with no regional wall motion abnormality, right ventricle is normal size and contractility. Conclusion: 1. The EKG portion of the Lexiscan is nondiagnostic. 2. No scintigraphic evidence of reversible ischemia seen, computer derived ejection fraction is 60% with no regional wall motion abnormality, right ventricle is normal size and contractility. 3. Normal Lexiscan Myoview study. Electronically signed by : Scout Guillen MD 09/22/2021 16:46:33
--- NOTE | 2021-09-22 06:30 | CA_ITS ---
APPROVED REPORT Exam: Pharmacologic Technologist: Genet Mcneal, Ht: 5 ft 6 in Wt: 209 lbs BSA: 2.04 m2 HR: 70 bpm BP: 103/61 mmHg Medical History Medications: Omeprazole,,,,, Aspirin,,,,, Hydrocodone,,,,, Trazadone,,,,, Gabapentin,,,,, Pramipexole,,,,, Carvedilol,,,,, Flonase,,,,, Buspirone,,,,, Lipitor,,,,, Albuterol,,,,, Tramadol,,,,, Stress Test Details Test: LEXISCAN HR Resting HR: 67 bpm Max Heart Rate (APMHR): 164.136546 bpm Max HR Achieved: 93 bpm Target HR (85% APMHR): 139.871711 bpm % of APMHR: 56.71 Recovery HR: 82 bpm BP Resting BP: 103/61 mmHg Max BP: 116/68 mmHg Recovery BP: 116.0/68.0 mmHg ECG Resting ECG: NSR, rightward axis, low voltage QRS, NS ST abns inferiorly Clinical Exercise duration: 04:00 min Highest Stage Achieved: Exercise capacity: 1.0 METs Stress ECG Conclusion Symptoms: SOA, ARITA. No CP. Arrhythmias/Ectopy: None ST-T Changes: very mild NS ST changes inferiorly & laterally. Conclusion: Unremarkable Lexiscan stress. Myoview images reported separately. Electronically signed by : Scout Guillen MD 09/22/2021 16:44:14
== END ==
PROVIDERS: PCP Family Medicine; Visit Provider Physician Assistant
DX: R06.09 Other forms of dyspnea; R07.89 Other chest pain; I20.9 Angina pectoris, unspecified; I50.30 Unspecified diastolic (congestive) heart failure; I11.0 Hypertensive heart disease with heart failure; G89.29 Other chronic pain; E78.2 Mixed hyperlipidemia; E66.01 Morbid (severe) obesity due to excess calories; M15.4 Erosive (osteo)arthritis; M54.9 Dorsalgia, unspecified; R60.1 Generalized edema; Z95.5 Presence of coronary angioplasty implant and graft; Z68.33 Body mass index [BMI] 33.0-33.9, adult
CPT/HCPCS: 78452; 93017; 93306; A9502; J2785

== ENCOUNTER → 2021-12-07 09:58 | Outpatient (CLI) | payer MEDICARE, MEDICAID, SELFPAY ==
[2021-12-07 10:51] LABS: Hemoglobin A1C 5.9 % (4.0-6.0)
== END ==
PROVIDERS: PCP Family Medicine; Visit Provider Family Medicine
DX: E11.9 Type 2 diabetes mellitus without complications (principal); Z79.84 Long term (current) use of oral hypoglycemic drugs
CPT/HCPCS: 36415; 83036

== ENCOUNTER 2021-12-24 12:49 | Outpatient (RCR) | payer MEDICARE, MEDICAID, SELFPAY | END 2021-12-24 13:30 | disposition home or self-care (01) | LOC: OT 12:49 | PROVIDERS: Visit Provider Orthopaedic Surgery | DX: G56.03 Carpal tunnel syndrome, bilateral upper limbs (principal) | CPT/HCPCS: 97763 ==

== ENCOUNTER → 2022-01-14 15:02 | Outpatient (CLI) | payer MEDICARE, MEDICAID, SELFPAY ==
[2022-01-14 16:27] LABS: Anion Gap 13.8 mEq/L (5-15); Blood Urea Nitrogen 15 mg/dl (7-17); Calcium 8.9 mg/dl (8.4-10.2); Carbon Dioxide 31 mmol/L (22.0-30.0); Chloride 91 mmol/L (98-107); Estimated Glomerular Filt Rate 65 ml/min (>60); GFR (African American) 78 ML/MIN (>60); Glucose 80 mg/dl (74-100); Potassium 4.8 mmoL/L (3.5-5.1); Sodium 131 mmol/L (136-145)
== END ==
PROVIDERS: PCP Family Medicine; Visit Provider Physician Assistant
DX: E78.2 Mixed hyperlipidemia (principal); I11.0 Hypertensive heart disease with heart failure; I25.10 Atherosclerotic heart disease of native coronary artery without angina pectoris; I50.32 Chronic diastolic (congestive) heart failure; R06.00 Dyspnea, unspecified; R06.01 Orthopnea; R06.02 Shortness of breath; Z95.5 Presence of coronary angioplasty implant and graft
CPT/HCPCS: 36415; 80048

== ENCOUNTER → 2022-01-28 10:33 | Outpatient (CLI) | payer MEDICARE, MEDICAID, SELFPAY ==
--- NOTE | 2022-01-28 10:39 | XR_ITS ---
FINAL REPORT CLINICAL HISTORY: bilateral hip pain FINDINGS: PELVIS WITH RIGHT HIP 2 views were obtained. There is no acute fracture or dislocation. Mild degenerative changes are seen in both hips. Vascular calcifications are noted. There is no soft tissue abnormality. IMPRESSION: Mild degenerative change with no acute bony abnormality. Reviewed, Interpreted and Dictated by Rangel Pinon III, MD Transcribed by Carline Clayton Authenticated and . [facility]
--- NOTE | 2022-01-28 10:40 | XR_ITS ---
FINAL REPORT CLINICAL HISTORY: LT HIP PAIN FINDINGS: LEFT HIP 2 views were obtained. There is no acute fracture or dislocation. There are mild degenerative changes. There is no soft tissue abnormality. IMPRESSION: Degenerative change with no acute bony abnormality. Reviewed, Interpreted and Dictated by Rangel Pinon III, MD Transcribed by Carline Clayton Authenticated and [facility]
== END ==
PROVIDERS: PCP Family Medicine; Visit Provider Orthopaedic Surgery
DX: M25.552 Pain in left hip (principal); M25.551 Pain in right hip
CPT/HCPCS: 73502

== ENCOUNTER → 2022-02-09 10:14 | Outpatient (CLI) | payer MEDICARE, MEDICAID, SELFPAY ==
--- NOTE | 2022-02-09 10:14 | MM_ITS ---
PROCEDURE INFORMATION: Exam: MG Bilateral Screening 3D Mammography Exam date and time: 02/09/2022 10:10 AM Age: 56 years old Clinical indication: Screening examination. Family history of maternal grandmother, maternal aunt, and paternal cousin with breast cancer. TECHNIQUE: Imaging protocol: Bilateral Screening tomosynthesis and 2D mammography including computer-aided detection (CAD) when performed. COMPARISON: 1. MG MM DIG SCREENING MAMM BI W/CAD 02/08/2021 10:59 AM 2. MG MM DIG SCREENING MAMM BI W/CAD 02/06/2020 9:04 AM 3. MG MM DIG SCREENING MAMM BI W/CAD 02/19/2019 8:45 AM 4. MG SCBI MM Dig screening mamm BI w/CAD 02/02/2018 3:27 PM FINDINGS: MAMMOGRAPHY: Breast composition: The breasts are almost entirely fatty. Mass: None. Architectural distortion: None. Calcifications: No suspicious calcifications. Asymmetric density: None. Skin thickening: None. Axillary adenopathy: None. IMPRESSION: No mammographic evidence of malignancy. Annual screening is recommended unless otherwise clinically indicated. ASSESSMENT: BI-RADS Category 1: Negative
== END ==
PROVIDERS: PCP Family Medicine; Visit Provider Family Medicine
DX: Z12.31 Encounter for screening mammogram for malignant neoplasm of breast (principal)
CPT/HCPCS: 77063; 77067

== ENCOUNTER → 2022-02-15 10:40 | Outpatient (CLI) | payer MEDICARE, MEDICAID, SELFPAY ==
[2022-02-15 14:16] LABS: Basophils # 0.1 K/mm3 (0-0.2); Basophils % 0.5 % (0.1-2.0); Eosinophils # 0.1 K/mm3 (0.0-0.4); Eosinophils % 0.8 % (0.1-12.0); Hematocrit 46.8 % (37.0-47.0); Hemoglobin 14.8 g/dL (12.2-16.2); Lymphocytes # 2.1 K/mm3 (0.7-4.5); Lymphocytes % 17.4 % (10-50); Mean Corpuscular HGB Conc 31.7 g/dL (31.8-35.4); Mean Corpuscular Hemoglobin 30.8 pg (27.0-31.2); Mean Corpuscular Volume 97.4 fl (81-99); Mean Platelet Volume 8.1 fl (7.4-10.4); Monocytes # 0.7 K/mm3 (0.1-1.0); Monocytes % 5.8 % (1.7-9.3); Neutrophils # 9.2 K/mm3 (1.8-7.8); Neutrophils % 75.5 % (37.0-80.0); Platelet Count 307 K/mm3 (142-424); Red Cell Distribution Width 13.8 % (11.5-17.5); White Blood Count 12.2 K/mm3 (4.8-10.8)
[2022-02-15 15:34] LABS: Creatinine,Urine Random 12 mg/dL (Not Estab.); Microalbumin < 6.000 mg/L (0-16.7)
== END ==
PROVIDERS: PCP Family Medicine; Visit Provider Family Medicine
DX: E11.9 Type 2 diabetes mellitus without complications (principal); I25.10 Atherosclerotic heart disease of native coronary artery without angina pectoris
CPT/HCPCS: 82043; 82570; 85025

== ENCOUNTER 2022-03-16 10:25 | Outpatient (CLI) | payer MEDICARE, MEDICAID, SELFPAY ==
[2022-03-16 10:38] VITALS: BP 108/69; PULSE 68; RESP 18; TEMP 36.6; O2SAT 97
== END 2022-03-16 10:59 | disposition home or self-care (01) ==
LOC: INF 10:26
PROVIDERS: PCP Family Medicine; Visit Provider Family Medicine
DX: M81.8 Other osteoporosis without current pathological fracture (principal)
CPT/HCPCS: 96372; J0897

== ENCOUNTER → 2022-03-30 10:33 | Outpatient (CLI) | payer MEDICARE, MEDICAID, SELFPAY ==
--- NOTE | 2022-03-30 10:42 | XR_ITS ---
FINAL REPORT CLINICAL HISTORY: hip pain COMPARISON: 01/28/2022 FINDINGS: Left hip Two views were obtained. There is no acute fracture or dislocation. There are mild degenerative changes. No soft tissue abnormality is identified. IMPRESSION: No acute process. Reviewed, Interpreted and Dictated by Rangel Pinon III, MD Transcribed by Penny Talbot Authenticated and [facility]
--- NOTE | 2022-03-30 10:42 | XR_ITS ---
FINAL REPORT CLINICAL HISTORY: hip pain COMPARISON: 01/28/2022 FINDINGS: Right hip Three views were obtained. There is no acute fracture or dislocation. There are mild degenerative changes. Vascular calcification is identified. IMPRESSION: No acute process. Reviewed, Interpreted and Dictated by Rangel Pinon III, MD Transcribed by Penny Talbot Authenticated and [facility]
--- NOTE | 2022-03-30 10:42 | XR_ITS ---
FINAL REPORT CLINICAL HISTORY: lumbar pain FINDINGS: LUMBAR SPINE Three views demonstrate no acute fracture. There is mild leftward curvature of the lumbar spine. There are [id number] degenerative changes with osteophytes. Vascular calcification is identified. There is no malalignment. IMPRESSION: Degenerative changes as detailed above. Reviewed, Interpreted and Dictated by Rangel Pinon III, MD Transcribed by Penny Talbot Authenticated and [facility]
== END ==
PROVIDERS: PCP Family Medicine; Visit Provider Orthopaedic Surgery
DX: M70.62 Trochanteric bursitis, left hip (principal); M54.9 Dorsalgia, unspecified; M70.61 Trochanteric bursitis, right hip; M54.50 Low back pain, unspecified
CPT/HCPCS: 72100; 73502

== ENCOUNTER → 2022-04-27 13:47 | Outpatient (CLI) | payer MEDICARE, MEDICAID, SELFPAY ==
--- NOTE | 2022-04-27 13:52 | XR_ITS ---
FINAL REPORT CLINICAL HISTORY: foot pain FINDINGS: RIGHT FOOT Three views of the right foot demonstrate no acute fracture or dislocation. There are mild degenerative changes of the midfoot. The soft tissues are unremarkable. IMPRESSION: Mild degenerative changes with no acute bony abnormality. Reviewed, Interpreted and Dictated by Hortencia Chamberlain MD Transcribed by Yesi Kenney Authenticated and [facility]
--- NOTE | 2022-04-27 13:52 | XR_ITS ---
FINAL REPORT CLINICAL HISTORY: foot pain FINDINGS: LEFT FOOT Three views of the left foot demonstrate no acute fracture or dislocation. The joint spaces are preserved. The soft tissues are unremarkable. IMPRESSION: No acute bony abnormality. Reviewed, Interpreted and Dictated by Hortencia Chamberlain MD Transcribed by Yesi Kenney Authenticated and [facility]
== END ==
PROVIDERS: PCP Family Medicine; Visit Provider Orthopaedic Surgery
DX: M79.671 Pain in right foot (principal); M79.672 Pain in left foot
CPT/HCPCS: 73630

== ENCOUNTER 2022-05-13 06:09 | Day surgery (SDC) | payer MEDICARE, MEDICAID, SELFPAY ==
[2022-05-12 13:40] VITALS: BMI 33.3
--- NOTE | 2022-05-13 | XR_ITS ---
FINAL REPORT CLINICAL HISTORY: BILAT FEET INJECTION IN THE OR FLUORO TIME: .41 FINDINGS: Fluoroscopy Fluoroscopy was obtained in the OR on the right foot. Six images were obtained in 0.41 minutes. IMPRESSION: Fluoroscopy as above. Reviewed, Interpreted and Dictated by Kayla Bearden MD Transcribed by Penny Talbot Authenticated and [facility]
--- NOTE | 2022-05-13 | XR_ITS ---
FINAL REPORT CLINICAL HISTORY: BILATERAL FEET INJECTION IN THE OR FLUORO TIME: .41 FINDINGS: Fluoroscopy Fluoroscopy was obtained in the OR on the left foot. Five images were obtained in 0.41 minutes. IMPRESSION: Fluoroscopy time as above. Reviewed, Interpreted and Dictated by Kayla Bearden MD Transcribed by Penny Talbot Authenticated and [facility]
[2022-05-13 06:36] VITALS: BP 115/49; PULSE 85; RESP 18; TEMP 36.3; O2SAT 95
[2022-05-13 06:46] LABS: POC Glucose,Bedside 115 (70-110)
[2022-05-13 08:25] VITALS: BP 81/52; PULSE 80; RESP 18; TEMP 36.1; O2SAT 92
--- NOTE | 2022-05-13 08:30 | P.OP_ITS ---
Date of procedure: 05/13/22 Pre-op Diagnosis:: bilateral midfoot arthritis Post-op Diagnosis:: same Procedure performed:: : Right midfoot injection, naviculocuneiform 66059-01: Right midfoot injection, intercuneiform 16341-75: Right midfoot injection, 2nd tarsometatarsal 57845-11: Right midfoot injection, 3rd tarsometatarsal 51886-10: Right midfoot injection, 4th tarsometatarsal 02618: Right midfoot fluoroscopic guided needle placement, naviculocuneiform 94339-18: Right midfoot fluoroscopic guided needle placement, intercuneiform 87215-44: Right midfoot fluoroscopic guided needle placement, 2nd tarsometatarsal 45897-31: Right midfoot fluoroscopic guided needle placement, 3rd tarsometatarsal 54828-62: Right midfoot fluoroscopic guided needle placement, 4th tarsometatarsal 65884: Left midfoot injection, naviculocuneiform 86025-49: Left midfoot injection, intercuneiform 61950-34: Left midfoot injection, 2nd tarsometatarsal 35515-41: Left midfoot injection, 3rd tarsometatarsal 94449-56: Left midfoot injection, 4th tarsometatarsal 31696: Left midfoot fluoroscopic guided needle placement, naviculocuneiform 62510-34: Left midfoot fluoroscopic guided needle placement, intercuneiform 98024-17: Left midfoot fluoroscopic guided needle placement, 2nd tarsometatarsal 52314-92: Left midfoot fluoroscopic guided needle placement, 3rd tarsometatarsal 26134-74: Left midfoot fluoroscopic guided needle placement, 4th tarsometatarsal Surgeon:: Rojelio Bassett JR, MD OPERATING ROOM COORDINATOR:: Jona Villagomez Anesthesia: MAC Estimated blood loss (mL): 0 Clinical Note:: 57-year-old female with bilateral midfoot arthritis, well-controlled diabetes, midfoot arthritis. I had a discussion with her regarding further management. She was interested in more durable intervention. I suggested bilateral fluoroscopic guided midfoot corticosteroid injections. She was amenable with the plan. Operative findings:: Needle placement confirmed fluoroscopically. Operative note:: Patient was identified in preoperative holding. Operative site was marked in indelible ink. History, physical, consent were reviewed and updated. Patient was surrendered to the anesthesia team, taken to the operative suite, placed supine on a well-padded operative table. Anesthesia was induced. The operative extremity was prepped and draped in the usual sterile fashion. The operative team donned sterile gowns and gloves and a timeout was called. All in attendance agreed regarding the patient's identity, procedure, operative site. Under sterile conditions and fluoroscopic guidance I injected the following joints with 1 mL of 1% lidocaine, 1 mL of 40 mg/mL methylprednisolone: Right naviculocuneiform, intercuneiform, second, third, and fourth tarsometatarsal joints. Under sterile conditions and fluoroscopic guidance I injected the following joints with 1 mL of 1% lidocaine, 1 mL of 40 mg/mL methylprednisolone: Left naviculocuneiform, intercuneiform, second, third, and fourth tarsometatarsal j oints. Condition: stable Disposition: PACU Complications:: none
--- NOTE | 2022-05-13 08:30 | EXP.OP.NOTE ---
Date of procedure: 05/13/22 Pre-op Diagnosis:: bilateral midfoot arthritis Post-op Diagnosis:: same Procedure performed:: : Right midfoot injection, naviculocuneiform 05573-15: Right midfoot injection, intercuneiform 18495-51: Right midfoot injection, 2nd tarsometatarsal 78456-59: Right midfoot injection, 3rd tarsometatarsal 98635-62: Right midfoot injection, 4th tarsometatarsal 43635: Right midfoot fluoroscopic guided needle placement, naviculocuneiform 46249-24: Right midfoot fluoroscopic guided needle placement, intercuneiform 89662-37: Right midfoot fluoroscopic guided needle placement, 2nd tarsometatarsal 22608-70: Right midfoot fluoroscopic guided needle placement, 3rd tarsometatarsal 83422-71: Right midfoot fluoroscopic guided needle placement, 4th tarsometatarsal 49613: Left midfoot injection, naviculocuneiform 20603-34: Left midfoot injection, intercuneiform 09354-60: Left midfoot injection, 2nd tarsometatarsal 09927-66: Left midfoot injection, 3rd tarsometatarsal 18889-96: Left midfoot injection, 4th tarsometatarsal 62521: Left midfoot fluoroscopic guided needle placement, naviculocuneiform 65279-28: Left midfoot fluoroscopic guided needle placement, intercuneiform 93030-32: Left midfoot fluoroscopic guided needle placement, 2nd tarsometatarsal 13578-05: Left midfoot fluoroscopic guided needle placement, 3rd tarsometatarsal 40169-00: Left midfoot fluoroscopic guided needle placement, 4th tarsometatarsal Surgeon:: Rojelio Bassett JR, MD LONG TERM CARE PHARMACIST:: Jona Villagomez Anesthesia: MAC Estimated blood loss (mL): 0 Clinical Note:: 57-year-old female with bilateral midfoot arthritis, well-controlled diabetes, midfoot arthritis. I had a discussion with her regarding further management. She was interested in more durable intervention. I suggested bilateral fluoroscopic guided midfoot corticosteroid injections. She was amenable with the plan. Operative findings:: Needle placement confirmed fluoroscopically. Operative note:: Patient was identified in preoperative holding. Operative site was marked in indelible ink. History, physical, consent were reviewed and updated. Patient was surrendered to the anesthesia team, taken to the operative suite, placed supine on a well-padded operative table. Anesthesia was induced. The operative extremity was prepped and draped in the usual sterile fashion. The operative team donned sterile gowns and gloves and a timeout was called. All in attendance agreed regarding the patient's identity, procedure, operative site. Under sterile conditions and fluoroscopic guidance I injected the following joints with 1 mL of 1% lidocaine, 1 mL of 40 mg/mL methylprednisolone: Right naviculocuneiform, intercuneiform, second, third, and fourth tarsometatarsal joints. Under sterile conditions and fluoroscopic guidance I injected the following joints with 1 mL of 1% lidocaine, 1 mL of 40 mg/mL methylprednisolone: Left naviculocuneiform, intercuneiform, second, third, and fourth tarsometatarsal joints. Condition: stable Disposition: PACU Complications:: none
[2022-05-13 08:35] VITALS: BP 93/56; PULSE 78; RESP 18; O2SAT 95
[2022-05-13 08:45] VITALS: BP 97/63; PULSE 77; RESP 18; O2SAT 93
[2022-05-13 08:57] LABS: POC Glucose,Bedside 98 (70-110)
[2022-05-13 09:10] VITALS: BP 100/59; PULSE 74; RESP 18; O2SAT 93
== END 2022-05-13 09:12 | disposition home or self-care (01) ==
PROVIDERS: PCP Family Medicine; Visit Provider Orthopaedic Surgery
DX: M19.071 Primary osteoarthritis, right ankle and foot (principal); M19.072 Primary osteoarthritis, left ankle and foot; E11.9 Type 2 diabetes mellitus without complications; F17.210 Nicotine dependence, cigarettes, uncomplicated; M79.671 Pain in right foot; M79.672 Pain in left foot; I10 Essential (primary) hypertension; Z79.899 Other long term (current) drug therapy
CPT/HCPCS: 20605; 73620; 76000; 82962; J2405

== ENCOUNTER → 2022-08-25 13:53 | Outpatient (CLI) | payer MEDICARE, MEDICAID, SELFPAY ==
[2022-08-25 14:41] LABS: Basophils % 0.3 % (0.1-2.0); Eosinophils # 0.3 K/mm3 (0.0-0.4); Eosinophils % 3.1 % (0.1-12.0); Hematocrit 42.7 % (37.0-47.0); Hemoglobin 13.8 g/dL (12.2-16.2); Lymphocytes # 2.3 K/mm3 (0.7-4.5); Lymphocytes % 21.9 % (10-50); Mean Corpuscular HGB Conc 32.4 g/dL (31.8-35.4); Mean Corpuscular Volume 92.4 fl (81-99); Mean Platelet Volume 7.8 fl (7.4-10.4); Monocytes # 0.5 K/mm3 (0.1-1.0); Monocytes % 4.8 % (1.7-9.3); Neutrophils # 7.3 K/mm3 (1.8-7.8); Platelet Count 252 K/mm3 (142-424); Red Blood Count 4.62 M/mm3 (4.20-5.40); Red Cell Distribution Width 13.5 % (11.5-17.5); White Blood Count 10.4 K/mm3 (4.8-10.8)
[2022-08-25 15:13] LABS: Chloride 89 mmol/L (98-107); Potassium 4.9 mmoL/L (3.5-5.1); Sodium 130 mmol/L (136-145)
[2022-08-25 15:15] LABS: Blood Urea Nitrogen 8 mg/dl (7-17); Estimated Glomerular Filt Rate 51 ml/min (>60); GFR (African American) 62 ML/MIN (>60)
[2022-08-25 15:16] LABS: Alanine Aminotransferase 15 U/L (12-78); Albumin Level 3.7 g/dl (3.5-5.0); Alkaline Phosphatase 124 U/L (38-126); Anion Gap 16.9 mEq/L (5-15); Aspartate Amino Transferase 21 U/L (14-36); Bilirubin,Direct 0.1 mg/dl (0.0-0.4); Bilirubin,Indirect 0.2 mg/dL (0.0-0.9); Bilirubin,Total 0.3 mg/dl (0.2-1.3); Bilirubin,Unconjugated 0.2 mg/dL (0.0-1.1); Calcium 8.5 mg/dl (8.4-10.2); Carbon Dioxide 29 mmol/L (22.0-30.0); Chol/HDL Ratio 3.1 (1-3.5); Cholesterol 89 mg/dl (140-200); Glucose 88 mg/dl (74-100); HDL Cholesterol 29 mg/dl (40-60); Magnesium 1.7 mg/dl (1.6-2.3); Total Protein,Serum 6.4 g/dl (6.3-8.2); Triglycerides 130 mg/dl (30-150); VLDL Cholesterol 26 mg/dL (0-40)
[2022-08-25 15:27] LABS: Direct LDL Cholesterol 47.89 mg/dL (100-129)
[2022-08-25 15:33] LABS: Free T4 (Free Thyroxine) 1.38 ng/dl (0.78-2.19)
[2022-08-25 15:48] LABS: Thyroid Stimulating Hormone 2.57 uIU/mL (0.465-4.68)
== END ==
PROVIDERS: PCP Family Medicine; Visit Provider Physician Assistant
DX: E78.2 Mixed hyperlipidemia (principal); I11.0 Hypertensive heart disease with heart failure; I25.10 Atherosclerotic heart disease of native coronary artery without angina pectoris; I50.32 Chronic diastolic (congestive) heart failure; Z95.5 Presence of coronary angioplasty implant and graft
CPT/HCPCS: 36415; 80048; 80061; 80076; 83735; 84439; 84443; 85025

== ENCOUNTER → 2022-09-01 14:02 | Outpatient (CLI) | payer MEDICARE, MEDICAID, SELFPAY ==
--- NOTE | 2022-09-01 14:12 | XR_ITS ---
FINAL REPORT CLINICAL HISTORY: h/o tobacco use, hypertension COMPARISON: 09/07/2021 FINDINGS: There is no evidence of effusion or other pleural disease. The mediastinum has a normal appearance. The cardiac silhouette is unremarkable. IMPRESSION: Unremarkable chest exam. Reviewed, Interpreted and Dictated by Hortencia Chamberlain MD Transcribed by Carline Clayton Authenticated and [facility] [place]
[2022-09-01 15:25] LABS: Basophils % 0.4 % (0.1-2.0); Eosinophils # 0.3 K/mm3 (0.0-0.4); Eosinophils % 2.5 % (0.1-12.0); Hematocrit 45.7 % (37.0-47.0); Lymphocytes # 2.5 K/mm3 (0.7-4.5); Lymphocytes % 23.4 % (10-50); Mean Corpuscular HGB Conc 32.9 g/dL (31.8-35.4); Mean Corpuscular Hemoglobin 30.5 pg (27.0-31.2); Mean Corpuscular Volume 92.8 fl (81-99); Monocytes # 0.5 K/mm3 (0.1-1.0); Neutrophils # 7.4 K/mm3 (1.8-7.8); Neutrophils % 68.7 % (37.0-80.0); Platelet Count 289 K/mm3 (142-424); Red Blood Count 4.92 M/mm3 (4.20-5.40); Red Cell Distribution Width 13.7 % (11.5-17.5); White Blood Count 10.7 K/mm3 (4.8-10.8)
[2022-09-01 15:39] LABS: Chloride 92 mmol/L (98-107); Potassium 4.6 mmoL/L (3.5-5.1); Sodium 132 mmol/L (136-145)
[2022-09-01 15:42] LABS: Alanine Aminotransferase 16 U/L (12-78); Albumin Level 3.8 g/dl (3.5-5.0); Albumin/Globulin Ratio 1.3 (1.1-1.8); Alkaline Phosphatase 132 U/L (38-126); Anion Gap 17.6 mEq/L (5-15); Aspartate Amino Transferase 21 U/L (14-36); Bilirubin,Total 0.3 mg/dl (0.2-1.3); Blood Urea Nitrogen 5 mg/dl (7-17); Carbon Dioxide 27 mmol/L (22.0-30.0); Estimated Glomerular Filt Rate 65 ml/min (>60); GFR (African American) 78 ML/MIN (>60); Total Protein,Serum 6.8 g/dl (6.3-8.2)
[2022-09-01 15:43] LABS: Glucose 56 mg/dl (74-100)
== END ==
PROVIDERS: PCP Family Medicine; Visit Provider Orthopaedic Surgery
DX: G56.01 Carpal tunnel syndrome, right upper limb (principal); I25.10 Atherosclerotic heart disease of native coronary artery without angina pectoris
CPT/HCPCS: 36415; 71046; 80053; 85025

== ENCOUNTER → 2022-09-06 08:55 | Outpatient (CLI) | payer MEDICARE, MEDICAID, SELFPAY ==
[2022-09-06 14:31] LABS: Microalbumin < 6.000 mg/L (0-16.7)
[2022-09-06 15:45] LABS: Creatinine,Urine Random 16 mg/dL (Not Estab.)
== END ==
PROVIDERS: PCP Family Medicine; Visit Provider Family Medicine
DX: E11.9 Type 2 diabetes mellitus without complications (principal); Z79.4 Long term (current) use of insulin
CPT/HCPCS: 82043; 82570

== ENCOUNTER 2022-09-09 10:51 | Day surgery (SDC) | payer MEDICARE, MEDICAID, SELFPAY ==
[2022-09-09 11:29] VITALS: BMI 32.8
[2022-09-09 11:39] VITALS: BP 113/71; PULSE 78; RESP 17; TEMP 36.1; O2SAT 95
[2022-09-09 11:47] LABS: POC Glucose,Bedside 110 (70-110)
--- NOTE | 2022-09-09 13:38 | EXP.ANES.CKL ---
[facility] Disclaimer: The information contained in this section may have been updated after the patient was seen, as this information can be updated by other users. Medical History Anxiety and depression Chest pain Diabetes Diastolic heart failure Edema GERD (gastroesophageal reflux disease) HHD (hypertensive heart disease) HTN (hypertension) Hyperlipidemia M?ni?re's syndrome or vertigo Surgical History (Updated 09/09/22 @ 11:30 by Stephanie Mccoy RN) History of bariatric surgery History of hysterectomy History of tonsillectomy Hx of cholecystectomy Stented coronary artery Family History (Updated 09/09/22 @ 11:33 by Stephanie Mccoy RN) Son Coronary artery disease, Onset Age: 37 Other Family history of cancer Family history of diabetes mellitus Family history of hyperlipidemia Family history of myocardial infarction Social History (Updated 09/09/22 @ 11:31 by Stephanie Mccoy RN) Smoking Status: Current every day smoker tobacco type: cigarettes packs per day: 1 second hand exposure: No alcohol intake: never substance use type: denies use current occupational status: disabled Travel in the last 8 weeks: None household members: none housing: house current occupational exposures/hazards: No caffeine: Yes [facility] Anesthesia Checklist Patient Identification Patient Identification: Arm Band Structural Data Admitted From: Home Planned Operative Procedure/s: Right Carpal Tunnel Release Consent for Planned Operative Procedure(s) Verified: Yes Verified Documents: Surgical Consent and History and Physical NPO Status Verified Time NPO: 00:00 Additional verifications Anesthesia Reactions: No Hx Blood Transfusions: No Blood Transfusion Reaction: No Airway Assessment C-Spine Mobility Assessed: Yes TMJ Mobility Assessed: Yes Dentition: Poor Dentition (upper dentures removed) Neurological Assessment Level of Consciousness: Awake and Alert Anesthesia Plan Anesthesia Risk discussed: Yes Anesthesia Plan: Verified ASA Class: III Anesthesia Type: MAC
[2022-09-09 14:53] VITALS: TEMP 43
--- NOTE | 2022-09-09 14:59 | EXP.OP.NOTE ---
Date of procedure: 09/09/22 Pre-op Diagnosis:: Right carpal tunnel syndrome Post-op Diagnosis:: Right carpal tunnel syndrome Procedure performed:: 46602: Right endoscopic carpal tunnel Surgeon:: Rojelio Bassett JR, MD Anesthesia: MAC Estimated blood loss (mL): 5 Clinical Note:: 57-year-old female with right carpal tunnel syndrome treated conservative measures discussion patient proceed with right endoscopic carpal. We discussed the risk and benefits of surgery. Risks included but were not limited to pain, bleeding, infection, damage to adjacent structures, need for further surgery, wound healing complications, loss of limb, . Patient expressed verbal consent and written consent was obtained for the above procedure. Operative findings:: Transverse carpal ligament transection with endoscopically, via direct visualization, as well as via palpation Operative note:: Patient was identified in preoperative holding. Operative site was marked in indelible ink. History, physical, consent were reviewed and updated. Patient was surrendered to the anesthesia team, taken to the operative suite, placed supine on a well-padded operative table. A nonsterile tourniquet placed on the proximal brachium. Anesthesia was induced. The operative extremity was prepped and draped in the usual sterile fashion. The operative team donned sterile gowns and gloves and a timeout was called. All in attendance agreed regarding the patient's identity, procedure, operative site. Weight-based dose of antibiotics was given prior to incision. I made a transverse incision at the proximal wrist crease proximal to the transverse carpal ligament. I bluntly dissected through skin and subcutaneous tissue with care taken to avoid injuring the palmaris longus. I transected the fascia, inserted a dilating probe deep to the transverse carpal ligament and noted its depth distal to the transverse carpal ligament. I then inserted a cannula and scope, visualize the fibers of the transverse carpal ligament. I took to the distal aspect of the transverse carpal ligament to confirm its location, then with a curved blade under endoscopic visualization, transected the fibers of the transverse carpal ligament and noted that they retracted medially and laterally. I removed the cannula, achieved hemostasis, closed with Monocryl, Prineo and Dermabond. Dressings were applied. Counts were correct x2. There were no apparent complications. I was present scrubbed for the entire case. Postoperatively, plan to leave dressing in place for 5 days, then remove all but Prineo. Okay to shower but do not soak wound at that point. Finger mobility, limit weightbearing to 10 pounds until follow-up in 2 weeks at which point I anticipate initiating physical therapy. Tourniquet time (min): 10 Condition: stable Disposition: PACU Complications:: None apparent.
[2022-09-09 15:03] VITALS: BP 108/68; PULSE 89; RESP 17; TEMP 36.8; O2SAT 95
[2022-09-09 15:13] VITALS: BP 105/78; PULSE 91; RESP 17; O2SAT 93
[2022-09-09 15:23] VITALS: BP 104/64; PULSE 92; RESP 17; O2SAT 93
== END 2022-09-09 15:28 | disposition home or self-care (01) ==
PROVIDERS: PCP Family Medicine; Visit Provider Orthopaedic Surgery
PROC: (CPT 64721; principal; 2022-09-09 12:30)
DX: G56.01 Carpal tunnel syndrome, right upper limb (principal); Z79.899 Other long term (current) drug therapy
CPT/HCPCS: 64721; 82962; 96374

== ENCOUNTER 2022-09-13 10:34 | Outpatient (CLI) | payer MEDICARE, MEDICAID, SELFPAY ==
[2022-09-13 10:45] VITALS: BP 88/47; PULSE 78; RESP 18; TEMP 36.9; O2SAT 96
== END 2022-09-13 10:50 | disposition home or self-care (01) ==
LOC: INF 10:35
PROVIDERS: PCP Family Medicine; Visit Provider Family Medicine
DX: M81.8 Other osteoporosis without current pathological fracture (principal)
CPT/HCPCS: 96372; J0897

== ENCOUNTER 2022-10-18 06:20 | Day surgery (SDC) | payer MEDICARE, MEDICAID, SELFPAY ==
[2022-10-17 11:10] VITALS: BMI 31.6
[2022-10-18] VITALS (9 sets, daily range): BP systolic 69–113; BP diastolic 38–65; PULSE 68–75; RESP 18; TEMP 36.1–36.6; O2SAT 93–99
--- NOTE | 2022-10-18 07:03 | P.PN_ITS ---
[facility] Disclaimer: The information contained in this section may have been updated after the patient was seen, as this information can be updated by other users. Medical History Anxiety and depression Chest pain Diabetes Diastolic heart failure Edema GERD (gastroesophageal reflux disease) HHD (hypertensive heart disease) HTN (hypertension) Hyperlipidemia M?ni?re's syndrome or vertigo Surgical History History of bariatric surgery History of hysterectomy History of tonsillectomy Hx of cholecystectomy Stented coronary artery Family History Son Coronary artery disease, Onset Age: 37 Other Family history of cancer Family history of diabetes mellitus Family history of hyperlipidemia Family history of myocardial infarction Social History Smoking Status: Current every day smoker tobacco type: cigarettes packs per day: 1 years smoked: 40 second hand exposure: No alcohol intake: never substance use type: denies use current occupational status: disabled Travel in the last 8 weeks: None household members: none housing: house current occupational exposures/hazards: No caffeine: Yes [facility] Anesthesia Checklist Patient Identification Patient Identification: Arm Band and Verbal (Name & ) Structural Data Admitted From: Home Planned Operative Procedure/s: Colonoscopy Consent for Planned Operative Procedure(s) Verified: Yes NPO Status Verified Time NPO: 00:00 Additional verifications Anesthesia Reactions: No Hx Blood Transfusions: No Blood Transfusion Reaction: No Airway Assessment C-Spine Mobility Assessed: Yes TMJ Mobility Assessed: Yes Dentition: Partials Neurological Assessment Level of Consciousness: Awake Hx Seizures: No Numbness or tingling in extremities: No Anesthesia Plan Anesthesia Risk discussed: Yes Anesthesia Plan: Verified ASA Class: III Anesthesia Type: MAC
[2022-10-18 07:06] LABS: POC Glucose,Bedside 98 (70-110)
--- NOTE | 2022-10-18 07:07 | P.PCN_ITS ---
Procedure: Date: 10/18/22 Patient Date of :: 1965 Procedure Performed:: Colonoscopy Indications:: Screening Performing Provider:: Art Amanda MD Referring Provider:: . Sedation:: Monitored anesthesia care Procedure:: After informed consent was obtained the patient was taken to the endoscopy suite. Sedation ensued after the patient was transferred to the left lateral decubitus position. Pulse, blood pressure, and oxygen saturation were monitored throughout the procedure. Digital rectal exam revealed no significant abnormality. The colonoscope was placed in position. The entire colon was eval uated. The colonoscope was carefully removed and the patient was transferred to recovery in stable condition. Please see findings and specimens below for detail. Findings:: Bowel preparation moderate to poor Tortuous sigmoid colon Polyps (see specimens) Specimens:: Polyp at 40 cm (cold biopsy forceps) Polyp at 10 cm (cold snare) Recommendations:: Timing of repeat colonoscopy is pending pathology but likely be between 2-3 years with extended bowel preparation. Complications:: No immediate Estimated blood obtained (mL): 1 Colonoscopy Component Colonoscopy Component Was a colonoscopy performed during today's procedure?: Yes Recommended follow up colonoscopy of at least 10 years?: No If no, follow up colonoscopy recommended in ___ years?: 2-3 years Reason for not recommending >/= 10 yr follow-up interval?: Polyp; limited bowel preparation
--- NOTE | 2022-10-18 08:11 | SUR.PHASEII ---
Pt arrived to post-op with oral airway in place, unresponsive and hypotensive. Jm Jiménez RANGE AIDE at bedside. Pt repostitioned and placed into trendelenberg and IV fluids wide open.
== END 2022-10-18 09:30 | disposition home or self-care (01) ==
PROVIDERS: PCP Nurse Practitioner Family; Visit Provider Surgery
PROC: 0DJD8ZZ Inspection of Lower Intestinal Tract, Via Natural or Artificial Opening Endoscopic (ICD-10-PCS; principal; 2022-10-18 07:30)
DX: Z12.11 Encounter for screening for malignant neoplasm of colon (principal); D12.5 Benign neoplasm of sigmoid colon; D12.8 Benign neoplasm of rectum; E11.9 Type 2 diabetes mellitus without complications
CPT/HCPCS: 45380; 45385; 82962; 88305; J2704

== ENCOUNTER 2022-11-07 11:00 | Outpatient (RCR) | payer MEDICARE, MEDICAID, SELFPAY ==
--- NOTE | 2022-10-04 16:14 | HMH.OTOPEV ---
OT Inpatient Evaluation Rehab OT Outpatient Eval Start: 10/04/22 16:04 Freq: Status: Active Protocol: Document 10/04/22 16:04 JÚNIORAARON (Rec: 10/04/22 16:12 JÚNIORAARON [id number]) E-signed By Conchis Vital, OT Outpatient Therapy Subjective History Subjective History 57 year old female referred to skilled OP OT for R hand CTS on 09/09/22. Patient is currently 4 weeks out during initial evaluation. Patient has a f/u in October. Chief Complaint Pain,Weakness,Decreased Workers Compensation Claims Adjuster Strength Symptom Type Ache Symptoms Relieved By Rest/Positioning,Heat,Ice Symptoms Aggravated By Physical Activity Prior Functional Limitations None Current Functional Limitations Reaching,Lifting,Recreation Activity Symptom Description Constant and Continuous Level of pain today (0-10) 0 Pain scale - at its best (0-10) 0 Pain scale - at its worst (0-10) 6 Wrist/Hand Eval Wrist Range of Motion Right Wrist Extension Active Range of Motion ( 65 degrees) Wrist Flexion Active Range of Motion ( 70 degrees) Wrist Radial Deviation Active Range of 14 Motion (degrees) Wrist Ulnar Deviation Active Range of 25 Motion (degrees) Forearm Supination Active Range of 65 Motion (degrees) Forearm Pronation Active Range of Motion 90 (degrees) Workers Compensation Claims Adjuster/Pinch Strength Right Workers Compensation Claims Adjuster Strength Measurement (lbs) 40 Left Workers Compensation Claims Adjuster Strength Measurement (lbs) 50 OT Outpatient Assessment Impairments Problems/Impairments Impaired Range of Motion, Impaired Strength,Subjective C /O Pain Prognosis Rehab Potential Good Clinical Impression Consistent with Diagnosis Yes Short Term Goals Number of Weeks 2 Increase Range of Motion Yes: Improve AROM of R UE wrist flex: 75; ext: 70; sup: 70; RD:18; UD: 30 Increase Strength Yes: Improve R funeral professional strength to 45# Decrease Subjective C/O Pain Yes: 5/10 pain at worst Patient to be Ind w/ HEP Yes: AAROM Patient to be Ind w/ Advanced HEP Yes: Strengthening Correction Goals Number of Weeks 4 Increase Range of Motion Yes: Improve AROM of R UE wrist flex: 75; ext: 75; sup: 80; RD:20 Increase Strength Yes: Improve R UE funeral professional strength to 50# Decreas
== END 2022-11-07 11:05 | disposition home or self-care (01) ==
LOC: OT 11:00
PROVIDERS: PCP Family Medicine; Visit Provider Orthopaedic Surgery
DX: G56.01 Carpal tunnel syndrome, right upper limb (principal)
CPT/HCPCS: 97010; 97014; 97035; 97110; 97140; 97165; G0283

== ENCOUNTER → 2022-12-02 14:17 | Outpatient (CLI) | payer MEDICARE, MEDICAID, SELFPAY ==
[2022-12-02 12:25] LABS: Microalbumin/Creatinine Ratio 29.5
[2022-12-02 12:26] LABS: Creatinine,Urine Random 61 mg/dL (Not Estab.)
== END ==
PROVIDERS: PCP Nurse Practitioner Family; Visit Provider Nurse Practitioner Family
DX: E11.9 Type 2 diabetes mellitus without complications (principal)
CPT/HCPCS: 82043; 82570

== ENCOUNTER → 2023-01-25 10:48 | Outpatient (CLI) | payer MEDICARE, MEDICAID, SELFPAY ==
--- NOTE | 2023-01-25 10:48 | FL_ITS ---
FINAL REPORT CLINICAL HISTORY: positive cologuard test unsuccessful colonoscopy Fluor time: 1:39min 107.31 mGy 2800.22 DAP FINDINGS: BARIUM ENEMA HISTORY: Incomplete colonoscopy. PROCEDURE: Single-contrast barium was introduced by gravity drip. Spot and overhead films were obtained. FINDINGS: Sole Tacker film is unremarkable. Retained stool limits mucosal detail. There is narrowing of the ascending colon just below the splenic flexure. However, this does expand on delayed imaging. No other extrinsic lesion is identified. The patient has an incompetent ileocecal valve. IMPRESSION: Focal narrowing of the ascending colon just below the splenic flexure. However, this does expand on delayed imaging. Colonoscopic correlation is recommended. Fluoroscopy time: 1.4 minutes Radiation Dose in reference air Kerma: 107.31 mGy Films reviewed , interpreted and dictated by Dr. Pinon Transcribed by Jesus Gonzales PA-C. Reviewed, Interpreted and Dictated by Rangel Pinon III, MD Transcribed by NORMA Hercules Authenticated and . [facility]
== END ==
PROVIDERS: PCP Nurse Practitioner Family; Visit Provider Surgery
DX: R19.5 Other fecal abnormalities (principal)
CPT/HCPCS: 74270

== ENCOUNTER → 2023-01-31 15:57 | Outpatient (CLI) | payer MEDICARE, MEDICAID, SELFPAY ==
--- NOTE | 2023-01-31 15:57 | MM_ITS ---
PROCEDURE INFORMATION: Exam: MG Bilateral Screening 3D Mammography Exam date and time: 01/31/2023 3:44 PM Age: 57 years old Clinical indication: Screening examination TECHNIQUE: Imaging protocol: Bilateral Screening tomosynthesis and 2D mammography including computer-aided detection (CAD) when performed. COMPARISON: 1. MG MM DIG SCREENING MAMM BI W/CAD 02/09/2022 10:10 AM 2. MG MM DIG SCREENING MAMM BI W/CAD 02/08/2021 10:59 AM FINDINGS: MAMMOGRAPHY: Breast composition: The breasts are almost entirely fatty. Mass: None. Architectural distortion: None. Calcifications: No suspicious calcifications. Asymmetric density: None. Skin thickening: None. Axillary adenopathy: None. IMPRESSION: No mammographic evidence of malignancy. Annual screening is recommended unless otherwise clinically indicated. ASSESSMENT: BI-RADS Category 1: Negative
== END ==
PROVIDERS: PCP Nurse Practitioner Family; Visit Provider Nurse Practitioner Family
DX: Z12.31 Encounter for screening mammogram for malignant neoplasm of breast (principal)
CPT/HCPCS: 77063; 77067

== ENCOUNTER → 2023-02-13 14:47 | Outpatient (CLI) | payer MEDICARE, MEDICAID, SELFPAY ==
[2023-02-13 15:03] LABS: Basophils % 0.3 % (0.1-2.0); Eosinophils # 0.5 K/mm3 (0.0-0.4); Eosinophils % 5.3 % (0.1-12.0); Hematocrit 42.5 % (37.0-47.0); Hemoglobin 14.8 g/dL (12.2-16.2); Lymphocytes # 2.3 K/mm3 (0.7-4.5); Lymphocytes % 21.9 % (10-50); Mean Corpuscular HGB Conc 34.8 g/dL (31.8-35.4); Mean Corpuscular Hemoglobin 33.1 pg (27.0-31.2); Mean Corpuscular Volume 95.1 fl (81-99); Mean Platelet Volume 8.9 fl (7.4-10.4); Monocytes # 0.4 K/mm3 (0.1-1.0); Neutrophils # 7.1 K/mm3 (1.8-7.8); Neutrophils % 68.5 % (37.0-80.0); Platelet Count 232 K/mm3 (142-424); Red Blood Count 4.47 M/mm3 (4.20-5.40); Red Cell Distribution Width 13.6 % (11.5-17.5); White Blood Count 10.3 K/mm3 (4.8-10.8)
[2023-02-13 16:19] LABS: Alanine Aminotransferase 15 U/L (12-78); Albumin Level 3.6 g/dl (3.5-5.0); Albumin/Globulin Ratio 1.3 (1.1-1.8); Alkaline Phosphatase 104 U/L (38-126); Anion Gap 13.7 mEq/L (5-15); Aspartate Amino Transferase 22 U/L (14-36); Bilirubin,Total 0.2 mg/dl (0.2-1.3); Blood Urea Nitrogen 5 mg/dl (7-17); Calcium 9.1 mg/dl (8.4-10.2); Carbon Dioxide 25 mmol/L (22.0-30.0); Chloride 100 mmol/L (98-107); Estimated Glomerular Filt Rate 74 ml/min (>60); GFR (African American) 89 ML/MIN (>60); Globulin 2.7 g/dL (1.3-3.2); Glucose 86 mg/dl (74-100); Potassium 4.7 mmoL/L (3.5-5.1); Sodium 134 mmol/L (136-145); Total Protein,Serum 6.3 g/dl (6.3-8.2)
== END ==
PROVIDERS: PCP Nurse Practitioner Family; Visit Provider Surgery
DX: R10.9 Unspecified abdominal pain (principal); I25.10 Atherosclerotic heart disease of native coronary artery without angina pectoris
CPT/HCPCS: 36415; 80053; 85025

== ENCOUNTER → 2023-02-16 09:34 | Outpatient (CLI) | payer MEDICARE, MEDICAID, SELFPAY ==
--- NOTE | 2023-02-16 09:36 | CT_ITS ---
FINAL REPORT CLINICAL HISTORY: Focal narrowing of the ascending colon ORDERED WITH IV/ORAL AND RECTAL FINDINGS: CT OF THE ABDOMEN AND PELVIS WITH CONTRAST Axial CT images of the abdomen and pelvis were obtained after the administration of IV, oral, and rectal contrast. Coronal and sagittal reformatted images were also obtained and reviewed.5-minute delayed images were obtained as well as the initial axial images. This study was performed with techniques to keep radiation doses as low as reasonably achievable (ALARA). Individualized dose reduction techniques using automated exposure control or adjustment of mA and/or kV according to the patient's size were employed. Abdomen: There is mild scarring in the lung bases. The heart is normal in size. The patient has undergone a prior gastric sleeve procedure and is also post cholecystectomy. The liver has an unremarkable appearance, without evidence of mass or biliary ductal dilatation. The spleen is unremarkable. No adrenal mass is present. The pancreas has an unremarkable appearance. The kidneys are normal, without evidence of mass or hydronephrosis. The aorta is normal in caliber. There is no free fluid or adenopathy. There is an area of wall thickening in the proximal transverse colon which correlates with the abnormality seen on recent barium enema. The appearance is consistent with a stricture, benign or neoplastic. This is best seen on image #66 of series 4, and image #27 of series 604. There is also a focal area of wall thickening in the sigmoid colon. Moderate vascular calcifications are noted. Pelvis: The appendix is normal. The urinary bladder is unremarkable. The uterus has been surgically resected. There is no evidence of mass or adenopathy. There is no evidence of bowel obstruction. IMPRESSION: There is wall thickening of the proximal transverse colon which correlates to the abnormality seen on recent barium enema, the appearance of which is consistent with a stricture, either benign or neoplastic. There is another focal area of wall thickening in the sigmoid colon as well. Reviewed, Interpreted and Dictated by Rangel Pinon III, MD Transcribed by Mallory Cherry Authenticated and [facility]
== END ==
PROVIDERS: PCP Nurse Practitioner Family; Visit Provider Surgery
DX: R10.9 Unspecified abdominal pain (principal)
CPT/HCPCS: 74177; Q9967

== ENCOUNTER → 2023-03-01 10:19 | Outpatient (CLI) | payer MEDICARE, MEDICAID, SELFPAY ==
--- NOTE | 2023-03-01 10:23 | XR_ITS ---
FINAL REPORT CLINICAL HISTORY: right cts COMPARISON: None FINDINGS: AP, oblique, and lateral views of the right wrist were obtained. There is no prior exam for comparison. There is no acute fracture or dislocation. The joint spaces are preserved. The soft tissues are normal. IMPRESSION: No acute osseous abnormality of the right wrist. If pain persists, MR is recommended. Reviewed, Interpreted and Dictated by Kayla Bearden MD Transcribed by Mallory Cherry Authenticated and [facility]
== END ==
PROVIDERS: PCP Nurse Practitioner Family; Visit Provider Orthopaedic Surgery
DX: M25.531 Pain in right wrist (principal)
CPT/HCPCS: 73110

== ENCOUNTER → 2023-03-06 14:02 | Outpatient (CLI) | payer MEDICARE, MEDICAID, SELFPAY ==
--- NOTE | 2023-03-06 14:11 | ECG_ITS ---
APPROVED REPORT Exam: Resting ECG HR:71 bpm ECG Measurements Heart Rate 71 AXES DC 158 P -22 QRSd 84 QRS 9 QT 384 T 31 QTc 406 Conclusion SINUS RHYTHM LOW QRS VOLTAGE IN PRECORDIAL LEADS [QRS DEFLECTION < 1.0 mV IN CHEST LEADS] SEPTAL MYOCARDIAL INFARCTION , OF INDETERMINATE AGE [40+ ms Q WAVE IN V1/V2] ABNORMAL ECG UNCONFIRMED REPORT Electronically signed by : Saqib Gee MD 03/07/2023 20:12:24
--- NOTE | 2023-03-06 14:26 | XR_ITS ---
FINAL REPORT TECHNIQUE: Chest PA & Lateral CLINICAL HISTORY: Pre Op for carpal tunnel surgery. Hx of hypertension, smoker, cardiac stents in place. COMPARISON: None FINDINGS: 2 views of the chest were performed. The heart size is normal. The mediastinum is within normal limits. There is no acute cardiopulmonary process. There are no pleural effusions. There is no pneumothorax. The bony thorax appears intact. IMPRESSION: No acute cardiopulmonary process. Reviewed, Interpreted and Dictated by Miky Cardona MD Transcribed by Mallory Cherry Authenticated and [facility]
[2023-03-06 14:55] LABS: Basophils % 0.4 % (0.1-2.0); Eosinophils # 0.2 K/mm3 (0.0-0.4); Eosinophils % 2.9 % (0.1-12.0); Hematocrit 43.1 % (37.0-47.0); Hemoglobin 14.6 g/dL (12.2-16.2); Lymphocytes # 2.2 K/mm3 (0.7-4.5); Lymphocytes % 28.9 % (10-50); Mean Corpuscular HGB Conc 33.9 g/dL (31.8-35.4); Mean Corpuscular Hemoglobin 32.4 pg (27.0-31.2); Mean Corpuscular Volume 95.7 fl (81-99); Mean Platelet Volume 7.8 fl (7.4-10.4); Monocytes # 0.4 K/mm3 (0.1-1.0); Monocytes % 4.9 % (1.7-9.3); Neutrophils # 4.9 K/mm3 (1.8-7.8); Platelet Count 213 K/mm3 (142-424); Red Cell Distribution Width 13.4 % (11.5-17.5); White Blood Count 7.8 K/mm3 (4.8-10.8)
[2023-03-06 15:32] LABS: Alanine Aminotransferase 14 U/L (12-78); Albumin Level 3.5 g/dl (3.5-5.0); Albumin/Globulin Ratio 1.2 (1.1-1.8); Alkaline Phosphatase 110 U/L (38-126); Anion Gap 11.4 mEq/L (5-15); Aspartate Amino Transferase 23 U/L (14-36); Bilirubin,Total 0.3 mg/dl (0.2-1.3); Blood Urea Nitrogen 9 mg/dl (7-17); Calcium 8.7 mg/dl (8.4-10.2); Carbon Dioxide 28 mmol/L (22.0-30.0); Chloride 98 mmol/L (98-107); Estimated Glomerular Filt Rate 65 ml/min (>60); GFR (African American) 78 ML/MIN (>60); Glucose 88 mg/dl (74-100); Potassium 4.4 mmoL/L (3.5-5.1); Sodium 133 mmol/L (136-145); Total Protein,Serum 6.5 g/dl (6.3-8.2)
== END ==
PROVIDERS: PCP Nurse Practitioner Family; Visit Provider Orthopaedic Surgery
DX: Z01.818 Encounter for other preprocedural examination (principal); M25.531 Pain in right wrist
CPT/HCPCS: 36415; 71046; 80053; 85025; 93005

== ENCOUNTER 2023-03-08 08:17 | Day surgery (SDC) | payer MEDICARE, MEDICAID, SELFPAY ==
[2023-03-07 12:34] VITALS: BMI 26.8
[2023-03-08] VITALS (9 sets, daily range): BP systolic 99–134; BP diastolic 47–76; PULSE 73–80; RESP 13–18; TEMP 36.1–36.7; O2SAT 94–100
--- NOTE | 2023-03-08 08:48 | P.PNANES_ITS ---
[facility] Disclaimer: The information contained in this section may have been updated after the patient was seen, as this information can be updated by other users. Medical History Abdominal pain Anxiety and depression Chest pain Diabetes Diastolic heart failure Edema GERD (gastroesophageal reflux disease) HHD (hypertensive heart disease) HTN (hypertension) Hyperlipidemia M?ni?re's syndrome or vertigo Surgical History History of bariatric surgery History of hysterectomy History of tonsillectomy Hx of cholecystectomy Stented coronary artery Family History Son Coronary artery disease, Onset Age: 37 Other Family history of cancer Family history of diabetes mellitus Family history of hyperlipidemia Family history of myocardial infarction Social History Smoking Status: Current every day smoker tobacco type: cigarettes packs per da y: 1 years smoked: 40 second hand exposure: No alcohol intake: never substance use type: denies use current occupational status: disabled Travel in the last 8 weeks: None household members: none housing: house number of children: 2 current occupational exposures/hazards: No caffeine: Yes [facility] Anesthesia Checklist Patient Identification Patient Identification: Arm Band and Verbal (Name & ) Structural Data Admitted From: Home Planned Operative Procedure/s: CTR Consent for Planned Operative Procedure(s) Verified: Yes NPO Status Verified Time NPO: 00:00 Additional verifications Anesthesia Reactions: No Hx Blood Transfusions: No Blood Transfusion Reaction: No Airway Assessment Mallampati Score:: Class II C-Spine Mobility Assessed: Yes TMJ Mobility Assessed: Yes Dentition: Dentures-poor fitting Neurological Assessment Level of Consciousness: Awake Hx Seizures: No Numbness or tingling in extremities: Yes Anesthesia Plan Anesthesia Risk discussed: Yes Anesthesia Plan: Verified ASA Class: III Anesthesia Type: MAC
[2023-03-08 08:51] LABS: POC Glucose,Bedside 95 (70-110)
--- NOTE | 2023-03-08 10:48 | P.OP_ITS ---
Date of procedure: 03/08/23 Pre-op Diagnosis:: Left carpal tunnel syndrome Post-op Diagnosis:: Same Procedure performed:: Left endoscopic carpal tunnel release Surgeon:: Geoff Chaparro DO [employer]ETING MANAGER:: Other Anesthesia: LMA Estimated blood loss (mL): 0 Operative findings:: See dictation Operative note:: Patient is identified preoperatively. Left wrist marked with a yes and my initials. Transferred operative suite. Placed upon the operating bed general anesthesia ministered airway secured. Left upper extremity prepped and draped normal sterile fashion. Once prepped and draped final operative timeout performed to identify proper patient procedure and extremity. Everyone involved the case agreed. There is no counter indications to beginning. She did receive preoperative antibiotics. Marking pen was used to make plan incision over the volar wrist crease. Esmarch was used to exsanguinate the extremity. Pneumatic tourniquet inflated 250 mmHg. Skin knife was used to incise skin careful dissection was taken down to identify the most proximal aspect of the transverse carpal ligament retractors were placed. The dilators from the endoscopic carpal tunnel set were utilized followed by the 4.0 mm sled which was placed into the carpal tunnel followed by the camera. Care was then placed in the carpal tunnel of the most distal aspect of the transverse carpal ligament was identified with a probe rasp was used to remove soft tissue. Followed by the curved blade which released the transverse carpal ligament in its entirety. This was confirmed with direct visualization. Irrigation wound performed. Skin closed with 3-0 nylon stitch sterile hand dressing placed. Patient taken to recovery in stable condition Condition: stable Disposition: PACU Complications:: None apparent
--- NOTE | 2023-03-08 10:56 | EXP.ANES.I ---
[facility] Anesthesia Record Part I Anesthesia Record I Intake, IV Amount: 800 Hydration: Adequate Estimated blood loss (mL): 5 Urine output (mL): 0 Blood Products used (#): none Blood Pressure: 134/76 SaO2: 100 Pulse Rate: 73 Airway Patency: Patent Respiratory Rate: 14 Temperature: 98.0 F Patient is:: Awake (Talking) and Stable Stable to PACU at:: 10:55
--- NOTE | 2023-03-13 07:58 | EXP.ANES.II ---
[facility] Anesthesia Record Part II Anesthesia Record Part II Discharge Time: 11:20 Destination: Surgical Day Care (OP Surgery) PACU nurse assessment reviewed?: Yes Patient Condition:: Good Anesthesia Complications:: None Swallowing reflex intact?: Yes Airway Patency: Patent Cyanosis?: No Blood Pressure: 118/52 SaO2: 94 Respiratory Rate: 16 Pulse Rate: 80 Temperature: 97.8 F Mental Status: Alert & Oriented Pain level:: 0 Nausea and/or vomitting:: None Intake, IV Amount: 0 Hydration: Adequate
[2023-03-13 07:59] VITALS: BP 118/52; PULSE 80; RESP 16; TEMP 36.6; O2SAT 94
== END 2023-03-08 11:51 | disposition home or self-care (01) ==
PROVIDERS: PCP Nurse Practitioner Family; Visit Provider Orthopaedic Surgery
PROC: (CPT 64721; principal; 2023-03-08 10:00)
DX: G56.02 Carpal tunnel syndrome, left upper limb (principal); E11.9 Type 2 diabetes mellitus without complications; I10 Essential (primary) hypertension; F17.210 Nicotine dependence, cigarettes, uncomplicated; Z79.899 Other long term (current) drug therapy
CPT/HCPCS: 64721; 82962; 96374; J2405

== ENCOUNTER 2023-04-05 09:03 | Day surgery (SDC) | payer MEDICARE, MEDICAID, SELFPAY ==
[2023-04-05] VITALS (8 sets, daily range): BP systolic 81–106; BP diastolic 41–71; PULSE 70–77; RESP 14–18; TEMP 36.2–36.3; O2SAT 93–96; BMI 26.1
[2023-04-05 09:50] LABS: POC Glucose,Bedside 93 (70-110)
--- NOTE | 2023-04-05 10:29 | EXP.ANES.CKL ---
[facility] Disclaimer: The information contained in this section may have been updated after the patient was seen, as this information can be updated by other users. Medical History Abdominal pain Anxiety and depression Chest pain Diabetes Diastolic heart failure Edema GERD (gastroesophageal reflux disease) HHD (hypertensive heart disease) HTN (hypertension) Hyperlipidemia M?ni?re's syndrome or vertigo Surgical History History of bariatric surgery History of hysterectomy History of tonsillectomy Hx of cholecystectomy Stented coronary artery Family History Son Coronary artery disease, Onset Age: 37 Other Family history of cancer Family history of diabetes mellitus Family history of hyperlipidemia Family history of myocardial infarction Social History Smoking Status: Current every day smoker tobacco type: cigarettes packs per day: 1 years smoked: 40 second hand exposure: No alcohol intake: never substance use type: denies use current occupational status: disabled Travel in the last 8 weeks: None household members: none housing: house number of children: 2 current occupational exposures/hazards: No caffeine: Yes [facility] Anesthesia Checklist Patient Identification Patient Identification: Arm Band, Family and Verbal (Name & ) Structural Data Admitted From: Home Planned Operative Procedure/s: Colonoscopy Consent for Planned Operative Procedure(s) Verified: Yes Verified Documents: Surgical Consent and History and Physical NPO Status Verified Time NPO: 08:00 Chart Verification Results Verified: CBC, BMP, ECG and Chest Xray Additional verifications Anesthesia Reactions: No Hx Blood Transfusions: No Blood Transfusion Reaction: No Cardiovascular Assessment Heart Sounds: S1 & S2 Pulse Rhythm: Irregular Peripheral Edema: No Airway Assessment Mallampati Score:: Class II C-Spine Mobility Assessed: Yes TMJ Mobility Assessed: Yes Dentition: Dentures-good fit (Nothing loose per pt.) Neurological Assessment Level of Consciousness: Awake, Alert, Appropriate and Follows Commands Hx Seizures: No Numbness or tingling in extremities: No Anesthesia Plan Anesthesia Risk discussed: Yes Anesthesia Plan: Verified ASA Class: III Anesthesia Type: MAC
--- NOTE | 2023-04-05 10:55 | HMH.SCOPE ---
Procedure: Date: 04/05/23 Patient Date of :: 1965 Procedure Performed:: Colonoscopy Indications:: The patient is a 58 year old who presents for repeat colonoscopy for poor bowel preparation on last colonoscopy in September. The patient had adenomatous polyps removed at that time Performing Provider:: Yosvany Caceres MD Referring Provider:: Maximino Vargas APRN Sedation:: See RN records Procedure:: After placing the patient in the left lateral decubitus position, the colonoscopy was gently inserted into the rectum and under direct visualization advanced to the cecum which was identified by transillumination in the right lower quadrant, identification of the ileocecal valve, appendiceal orifice, and cecal strap. Color, texture, mucosa, and anatomy of the colon were carefully examined with the scope. Findings:: Anal canal: normal Rectum: hemorrhoids Sigmoid colon: fair to poor preparation Descending colon: fair to poor preparation Splenic flexure: normal Transverse colon: normal without polyps or inflammatory changes Hepatic flexure: normal Ascending colon: normal without polyps or inflammatory changes Cecum: normal Terminal ileum: not visualized Impression: Fair to poor preparation. Time spent irrigating and cleansing mucosa Angulated sigmoid colon Recommendations:: Repeat colonoscopy in 3 years Complications:: none Estimated blood obtained (mL): 0 Colonoscopy Component Colonoscopy Component Was a colonoscopy performed during today's procedure?: Yes Recommended follow up colonoscopy of at least 10 years?: Yes
--- NOTE | 2023-04-05 11:03 | EXP.ANES.I ---
[facility] Anesthesia Record Part I Anesthesia Record I Intake, IV Amount: 200 Hydration: Adequate Estimated blood loss (mL): 0 Urine output (mL): 0 Blood Products used (#): none Blood Pressure: 81/44 SaO2: 95 Pulse Rate: 75 Airway Patency: Patent Respiratory Rate: 16 Temperature: 97.4 F Patient is:: Drowsy and Stable Stable to PACU at:: 11:01
== END 2023-04-05 11:50 | disposition home or self-care (01) ==
PROVIDERS: PCP Nurse Practitioner Family; Visit Provider Internal Medicine
PROC: (CPT G0105; principal; 2023-04-05 10:00)
DX: Z12.11 Encounter for screening for malignant neoplasm of colon (principal); Z86.010 Personal history of colon polyps; K64.8 Other hemorrhoids; E11.9 Type 2 diabetes mellitus without complications
CPT/HCPCS: G0105; 82962

== ENCOUNTER 2023-04-06 12:35 | Outpatient (CLI) | payer MEDICARE, MEDICAID, SELFPAY ==
[2023-04-06 12:43] VITALS: BP 106/53; PULSE 71; RESP 18; O2SAT 96
== END 2023-04-06 12:53 | disposition home or self-care (01) ==
LOC: INF 12:36
PROVIDERS: PCP Nurse Practitioner Family; Visit Provider Nurse Practitioner Family
DX: M85.89 Other specified disorders of bone density and structure, multiple sites (principal); M15.4 Erosive (osteo)arthritis; M81.8 Other osteoporosis without current pathological fracture; M47.816 Spondylosis without myelopathy or radiculopathy, lumbar region
CPT/HCPCS: 96372; J0897

== ENCOUNTER 2023-04-28 09:35 | Outpatient (CLI) | payer MEDICARE, MEDICAID, SELFPAY ==
[2023-04-28 19:36] LABS: Amphetamine/Metha Screen,Urine Negative ng/ml (<1000); Barbiturates Screen,Urine Negative ng/ml (<200); Cannabinoid Screen,Urine Negative ng/ml (<50); Opiate Screen,Urine Positive ng/ml (<300); Phencyclidine Screen,Urine Negative ng/ml (<25)
[2023-04-28 22:26] LABS: Benzodiazepines Screen,Urine Negative ng/ml (<200); Cocaine Screen,Urine Negative ng/ml (<300); Methadone Screen,Urine Negative ng/ml (<300)
== END 2023-04-28 23:59 ==
LOC: LAB.DROPOF 04-29 09:36
PROVIDERS: PCP Nurse Practitioner Family; Visit Provider Nurse Practitioner Family
DX: Z79.899 Other long term (current) drug therapy (principal)
CPT/HCPCS: 80307

== ENCOUNTER → 2023-05-10 13:25 | Outpatient (POV) | payer MEDICARE, MEDICAID, SELFPAY ==
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
[2023-05-10 14:18] VITALS: BP 96/71; PULSE 79; RESP 18; O2SAT 100; BMI 25.0
== END ==
LOC: SC.PAIN 13:26
PROVIDERS: PCP Nurse Practitioner Family; Visit Provider Nurse Practitioner Family
DX: M50.30 Other cervical disc degeneration, unspecified cervical region; G89.4 Chronic pain syndrome; M46.1 Sacroiliitis, not elsewhere classified; M51.16 Intervertebral disc disorders with radiculopathy, lumbar region
CPT/HCPCS: 99202; G0463

== ENCOUNTER 2023-05-23 11:46 | Day surgery (SDC) | payer MEDICARE, MEDICAID, SELFPAY ==
[2023-05-23 11:50] VITALS: BP 107/53; PULSE 80; RESP 18; TEMP 36.2; O2SAT 90; BMI 25.0
[2023-05-23 12:05] VITALS: BP 102/56; PULSE 74; RESP 16; O2SAT 90
--- NOTE | 2023-05-23 12:12 | P.PCN_ITS ---
Procedure Date: 05/23/23 Time: 12:00 Anesthesiologist:: Faisal Castrejon CRNA Complications:: None Pre-procedure Diagnosis:: Bilateral sacroiliitis. Post-procedure Diagnosis:: Same. Indications for Procedure:: Patient is a pleasant 58-year-old female comes our clinic today for bilateral sacroiliac joint injection diagnostic blocks. Patient has low lumbar back pain bilaterally off the midline. Also, she reports bilateral posterior hip pain with ambulation, sitting, standing. She rates her pain 8/10. Procedure Details:: Procedure: Bilateral sacroiliac joint injections under fluoroscopy Informed consent was obtained and the risks and benefits of the procedure were explained to the patient.~ The patient was taken to the procedure room and noninvasive monitors were placed including a noninvasive blood pressure cuff and pulse oximeter.~ The patient was placed prone on the procedure table. Both hips were cleansed using Betadine as a cleansing solution. C-arm fluoroscopy was used to view the right sacroiliac joint.~ The skin and subcutaneous tissues were anesthetized using lidocaine 1.5% and a 25-gauge needle.~ After this, a 22-gauge spinal needle was inserted under fluoroscopic guidance into the inferior aspect of the right sacroiliac joint.~ Omnipaque dye was injected and good spread was seen throughout the joint.~ After this, approximately 5 mL of bupivacaine, 0.25% was incrementally injected into the right sacroiliac joint. We then moved to the left sacroiliac joint.~ The skin and subcutaneous tissues were anesthetized using lidocaine 1.5% and a 25-gauge needle.~ After this, a 22- gauge spinal needle was inserted under fluoroscopic guidance into the inferior aspect of the left sacroiliac joint.~ Omnipaque dye was injected and good spread was seen throughout the joint. After this, approximately 5 mL of bupivacaine, 0.25% was incrementally injected into the left sacroiliac joint.~ The patient tolerated the procedure well with no complications. The patient was observed in the Pain Clinic and then was discharged home neurologically intact. Plan and Disposition:: Patient was discharged without incident.
[2023-05-23] MEDS: LIDOCAINE 1% 5ML PF VIAL 5 ML (12:19)
[2023-05-23] MEDS: BUPIVACAINE 0.25% 10ML INJ 25 MG IJ (12:19)
[2023-05-23 12:20] VITALS: BP 88/62; PULSE 72; RESP 18; O2SAT 100
[2023-05-23 12:21] VITALS: BP 88/62; PULSE 72; RESP 18; O2SAT 100
== END 2023-05-23 12:05 | disposition home or self-care (01) ==
PROVIDERS: PCP Nurse Practitioner Family; Visit Provider Nurse Anesthetist, Certified Registered
DX: M46.1 Sacroiliitis, not elsewhere classified (principal)
CPT/HCPCS: 27096; G0260

== ENCOUNTER 2023-05-25 12:38 | Outpatient (CLI) | payer MEDICARE, MEDICAID, SELFPAY ==
--- NOTE | 2023-05-25 12:52 | CA_ITS ---
APPROVED REPORT EXAM: Comprehensive 2D, Doppler, and color-flow Echocardiogram Hod Carrier: Jami Aponte RT(R) Ht: 5 ft 5 in Wt: 150lbs BSA: 1.75 BP: 107/72 mmHg Indications: CP, smoker, edema, HTN, DM, SOB, hyperlipidemia, GERD, CAD 2D Dimensions LVEF (Bradshaw's) 60.00 % F: 54 - 74 LV Volume 65.00 mL F: 46 - 106 LV Volume Index 37.1 mL/m2 F: 29 - 61 EF AP4 61.40 % EF AP2 61.5 % EF BP 60.0 % GL Strain -19.1 % M-Mode Dimensions RVDd 3.12 cm (0.9-2.6) LA Diam 2.52 cm (1.9-4.0) LVDd 3.72 cm (3.5-5.7) LVDs 2.81 cm (3.5-5.7) IVSd 0.57 cm (0.6-1.1) PWd 0.61 cm (0.6-1.1) EF (Teich) 49.40% FS 24.50% EDV (Teich) 58.90 mL ESV (Teich) 29.80 mL LV Diastology E Decel Time 197 (160-240 msec) E/A Ratio 1.0 Mitral Valve MV E Max Benjamin. 72.0 (40-130 cm/s) MV A Velocity 71.0 (40-130 cm/s) E/A Ratio 1.01 MV PHT 58.0 ms Left Ventricle The left ventricle is normal size. The left ventricular systolic function is normal. The left ventricular ejection fraction is within the normal range. There is normal left ventricular wall thickness. There is normal LV segmental wall motion. The left ventricular diastolic function is normal. LVEF is 55%. Right Ventricle The right ventricle is normal size. The right ventricular systolic function is normal. Atria The left atrium size is normal. The right atrium size is normal. There is no Doppler evidence of interatrial shunt. Aortic Valve The aortic valve is mildly thickened. There is no aortic valvular stenosis. No aortic regurgitation is present. Mitral Valve The mitral valve is normal in structure. No evidence of mitral valve stenosis. There is no mitral valve regurgitation noted. Tricuspid Valve The tricuspid valve leaflets are thin and pliable. Trace tricuspid regurgitation. There is insufficient TR jet to estimate RVSP. Pulmonic Valve The pulmonary valve is normal in structure. Trace pulmonic regurgitation. Great Vessels The aortic root is normal in size. The ascending aorta is normal in size. IVC is normal in size and collapses >50% with inspiration. Pericardium There is no pericardial effusion. Other Information Study Quality: Fair Conclusion Normal biventricular systolic function. No significant valvular stenosis or regurgitation. Electronically signed by : Louise Ramirez MD 05/28/2023 19:40:15
[2023-05-25 14:15] LABS: Basophils % 0.3 % (0.1-2.0); Eosinophils % 0.4 % (0.1-12.0); Hematocrit 45.2 % (37.0-47.0); Hemoglobin 15.5 g/dL (12.2-16.2); Lymphocytes # 1.6 K/mm3 (0.7-4.5); Lymphocytes % 17.7 % (10-50); Mean Corpuscular HGB Conc 34.2 g/dL (31.8-35.4); Mean Corpuscular Hemoglobin 32.9 pg (27.0-31.2); Mean Corpuscular Volume 96.2 fl (81-99); Mean Platelet Volume 8.8 fl (7.4-10.4); Monocytes # 0.4 K/mm3 (0.1-1.0); Neutrophils # 6.8 K/mm3 (1.8-7.8); Neutrophils % 76.7 % (37.0-80.0); Platelet Count 214 K/mm3 (142-424); Red Cell Distribution Width 12.7 % (11.5-17.5); White Blood Count 8.9 K/mm3 (4.8-10.8)
[2023-05-25 14:28] LABS: Alanine Aminotransferase 18 U/L (12-78); Albumin Level 4.1 g/dl (3.5-5.0); Alkaline Phosphatase 95 U/L (38-126); Anion Gap 12.5 mEq/L (5-15); Aspartate Amino Transferase 25 U/L (14-36); Bilirubin,Direct 0.1 mg/dl (0.0-0.4); Bilirubin,Indirect 0.2 mg/dL (0.0-0.9); Bilirubin,Total 0.3 mg/dl (0.2-1.3); Bilirubin,Unconjugated 0.2 mg/dL (0.0-1.1); Blood Urea Nitrogen 9 mg/dl (7-17); Calcium 9.2 mg/dl (8.4-10.2); Carbon Dioxide 27 mmol/L (22.0-30.0); Chloride 99 mmol/L (98-107); Chol/HDL Ratio 3.5 (1-3.5); Cholesterol 115 mg/dl (140-200); Estimated Glomerular Filt Rate 74 ml/min (>60); GFR (African American) 89 ML/MIN (>60); Glucose 91 mg/dl (74-100); HDL Cholesterol 33 mg/dl (40-60); Potassium 4.5 mmoL/L (3.5-5.1); Sodium 134 mmol/L (136-145); Total Protein,Serum 7.2 g/dl (6.3-8.2); Triglycerides 162 mg/dl (30-150); VLDL Cholesterol 32 mg/dL (0-40)
[2023-05-25 14:39] LABS: Direct LDL Cholesterol 61.84 mg/dL (100-129)
[2023-05-25 14:44] LABS: Free T4 (Free Thyroxine) 1.05 ng/dl (0.78-2.19)
[2023-05-25 14:59] LABS: Thyroid Stimulating Hormone 1.53 uIU/mL (0.465-4.68)
== END 2023-05-25 23:59 ==
LOC: RT 12:39
PROVIDERS: PCP Nurse Practitioner Family; Visit Provider Physician Assistant
DX: E78.5 Hyperlipidemia, unspecified (principal); I50.30 Unspecified diastolic (congestive) heart failure; R06.00 Dyspnea, unspecified; E11.9 Type 2 diabetes mellitus without complications; I25.10 Atherosclerotic heart disease of native coronary artery without angina pectoris; R60.0 Localized edema; Z95.5 Presence of coronary angioplasty implant and graft; Z79.899 Other long term (current) drug therapy
CPT/HCPCS: 36415; 80048; 80061; 80076; 83735; 84439; 84443; 85025; 93306

== ENCOUNTER → 2023-06-09 14:22 | Outpatient (POV) | payer MEDICARE, MEDICAID, SELFPAY ==
--- NOTE | 2023-06-09 15:02 | EXP.PAIN.SOA ---
[facility] Pain Management SOAP Note Subjective:: Patient is a pleasant 58-year-old female who presents today for follow-up of bilateral SI injections on 05/23/2023. We are currently treating the patient for low back pain, bilateral hip pain, bilateral sacroiliitis, neck pain. Today she rates her pain a 0 out of 10. Patient denies any new trauma or injury. She does state that she has had 100% improvement following this injections and feels like it is still providing significant relief. Patient states she has been able to increase her activity with decreased pain symptoms and has been overall more functional. Patient is still prescribed [place] 5 mg 3 times a day, gabapentin 300 mg 3 times a day, Flexeril 10 mg 3 times a day and lorazepam 5 mg from her primary care provider. We did order her compounded cream from her last visit she states this is helping. Her Dagoberto has been reviewed and is appropriate. Review of Systems: General: No recent weight changes, no fever, no sleep disturbances Respiratory: No cough, no shortness of air, no recurring pulmonary infections Cardiovascular/peripheral vascular: No chest pain, no palpitations, no edema, no shortness of breath Gastrointestinal: No new onset incontinence, normal bowel movements reported Genitourinary: No new onset incontinence Musculoskeletal: Low back pain Psychiatric: [Normal mood/affect] Neurological: [Denies weakness in extremities], [denies balance issues] Objective:: Physical Exam: General: Alert and oriented x3, no acute distress, pleasant and cooperative Lungs: Respirations even and unlabored, symmetrical chest expansion Eyes: PERRL Musculoskeletal: Flexion and extension of lumbar [spine] somewhat guarded secondary to pain, [antalgic gait noted] Neurological: Speech clear, no gross sensory deficit Assessment:: Low back pain, bilateral hip pain, bilateral sacroiliitis, neck pain Plan:: Patient has had significant improvement following her bilateral SI injections and does not require any additional injection therapy at this time. Patient will return to clinic in 1 month for reevaluation of symptoms and plan of care. Patient has been instructed to contact the clinic with any concerns before the next appointment. Dr. Edwards has reviewed this note and agrees with this plan of care. This note was dictated using voice recognition software and make contain errors or omissions. [facility] Disclaimer: The information contained in this section may have been updated after the patient was seen, as this information can be updated by other users. Medical History Abdominal pain Anxiety and depression Chest pain Diabetes Diastolic heart failure Edema GERD (gastroesophageal reflux disease) HHD (hypertensive heart disease) HTN (hypertension) Hyperlipidemia M?ni?re's syndrome or vertigo Surgical History History of bariatric surgery History of carpal tunnel release History of hysterectomy History of tonsillectomy Hx of cholecystectomy Stented coronary artery Family History Son Coronary artery disease, Onset Age: 37 Other Family history of cancer Family history of diabetes mellitus Family history of hyperlipidemia Family history of myocardial infarction Social History Smoking Status: Current every day smoker tobacco type: cigarettes packs per day: 1 years smoked: 40 second hand exposure: No alcohol intake: never substance use type: denies use current occupational status: unemployed Travel in the last 8 weeks: None household members: none housing: house number of children: 2 current occupational exposures/hazards: No caffeine: Yes
[2023-06-09 15:11] VITALS: BP 95/60; PULSE 73; RESP 18; O2SAT 96; BMI 23.8
== END ==
LOC: SC.PAIN 14:23
PROVIDERS: PCP Nurse Practitioner Family; Visit Provider Nurse Practitioner Family
DX: M54.50 Low back pain, unspecified (principal); M46.1 Sacroiliitis, not elsewhere classified; M25.552 Pain in left hip; M25.551 Pain in right hip; M54.2 Cervicalgia
CPT/HCPCS: 99212; G0463

== ENCOUNTER 2023-06-21 09:55 | Day surgery (SDC) | payer MEDICARE, MEDICAID, SELFPAY ==
[2023-06-15 10:24] VITALS: BMI 24.6
[2023-06-21] MEDS: LACTATED RINGERS 1000ML 1,000 ML 25 ML IV (10:08)
[2023-06-21 10:17] VITALS: BP 128/73; PULSE 85; RESP 20; TEMP 36.3; O2SAT 98
--- NOTE | 2023-06-21 10:57 | P.PNANES_ITS ---
[facility] Disclaimer: The information contained in this section may have been updated after the patient was seen, as this information can be updated by other users. Medical History Abdominal pain Anxiety and depression Chest pain Diabetes Diastolic heart failure Edema GERD (gastroesophageal reflux disease) HHD (hypertensive heart disease) HTN (hypertension) Hyperlipidemia M?ni?re's syndrome or vertigo Surgical History History of bariatric surgery History of carpal tunnel release History of hysterectomy History of tonsillectomy Hx of cholecystectomy Stented coronary artery Family History Son Coronary artery disease, Onset Age: 37 Other Family history of cancer Family history of diabetes mellitus Family history of hyperlipidemia Family history of myocardial infarction Social History Smoking Status: Current every day smoker tobacco type: cigarettes packs per day: 1 years smoked: 40 second hand exposure: No alcohol intake: never substance use type: denies use current occupational status: unemployed Travel in the last 8 weeks: None household members: none housing: house number of children: 2 current occupational exposures/hazards: No caffeine: Yes [facility] Anesthesia Checklist Patient Identification Patient Identification: Arm Band and Verbal (Name & ) Structural Data Admitted From: Home Planned Operative Procedure/s: Colonoscopy Consent for Planned Operative Procedure(s) Verified: Yes NPO Status Verified Time NPO: 00:00 Additional verifications Anesthesia Reactions: No Hx Blood Transfusions: No Blood Transfusion Reaction: No Airway Assessment Mallampati Score:: Class II C-Spine Mobility Assessed: Yes TMJ Mobility Assessed: Yes Dentition: Dentures-poor fitting Neurological Assessment Level of Consciousness: Awake Hx Seizures: No Numbness or tingling in extremities: No Anesthesia Plan Anesthesia Risk discussed: Yes Anesthesia Plan: Verified ASA Class: III Anesthesia Type: MAC
[2023-06-21 11:06] VITALS: O2SAT 98
[2023-06-21 11:31] VITALS: BP 80/53; PULSE 71; RESP 16; O2SAT 95
--- NOTE | 2023-06-21 11:32 | P.PCN_ITS ---
Procedure: Date: 06/21/23 Patient Date of :: 1965 Procedure Performed:: Colonoscopy Indications:: The patient is a 58-year-old who presents today for colonoscopy for an abnormal barium enema and CT scan of the abdomen and pelvis. The patient had a colonoscopy in September with Dr. David Amanda in general surgery. Adenomatous polyps removed during the colonoscopy and the bowel preparation was noted to be in adequate. The patient presented for repeat colonoscopy with ky in March. Colonoscopy at that time showed a fair to poor preparation. The patient has had a barium enema that showed a focal area of narrowing at the ascending colon and possibly hepatic flexure. A follow-up CT scan of the abdomen pelvis showed wall thickening of the proximal transverse colon that corresponded to the finding see n on barium enema, and was reported to be a stricture and possibly neoplastic on the CT scan. The patient has a family history of colon cancer in a maternal grandparent. Her mother had lymphoma. Performing Provider:: Yosvany Caceres MD Referring Provider:: Maximino Vargas APRN Sedation:: See RN records Procedure:: After placing the patient in the left lateral decubitus position, the colonoscopy was gently inserted into the rectum and under direct visualization advanced to the cecum which was identified by transillumination in the right lower quadrant, identification of the ileocecal valve, appendiceal orifice, and cecal strap. Color, texture, mucosa, and anatomy of the colon were carefully examined with the scope. Findings:: The quality of the bowel preparation on today's colonoscopy was good. The sigmoid colon was noted to be somewhat tortuous. The examined colon was normal in appearance. There was no apparent intraluminal mass or stricture within the area of the distal ascending colon to proximal transverse colon. Colon spasms were noted during the procedure patient tolerated the procedure well. Recommendations:: Reassuring colonoscopy If there is ongoing clinical concern from previous imaging, then the patient may require further imaging (perhaps PET CT or repeat CT scan) Complications:: none Estimated blood obtained (mL): 0 Colonoscopy Component Colonoscopy Component Was a colonoscopy performed during today's procedure?: Yes Recommended follow up colonoscopy of at least 10 years?: Yes
[2023-06-21 11:41] VITALS: BP 90/63; PULSE 72; RESP 17; O2SAT 94
[2023-06-21 11:51] VITALS: BP 96/70; PULSE 73; RESP 17; O2SAT 95
[2023-06-21 12:01] VITALS: BP 96/70; PULSE 74; RESP 17; O2SAT 95
[2023-06-23 08:45] LABS: POC Glucose,Bedside 101 (70-110)
== END 2023-06-21 12:15 | disposition home or self-care (01) ==
PROVIDERS: PCP Nurse Practitioner Family; Visit Provider Internal Medicine
PROC: (CPT 45378; principal; 2023-06-21 11:00)
DX: R93.3 Abnormal findings on diagnostic imaging of other parts of digestive tract (principal); Z86.010 Personal history of colon polyps; Z80.0 Family history of malignant neoplasm of digestive organs; K58.9 Irritable bowel syndrome, unspecified; E11.9 Type 2 diabetes mellitus without complications
CPT/HCPCS: 45378; 82962

== ENCOUNTER 2023-07-05 14:14 | Outpatient (POV) | payer MEDICARE, MEDICAID, SELFPAY ==
--- NOTE | 2023-07-05 14:57 | A.OFFVIS_ITS ---
[facility] Pain Management SOAP Note Subjective:: Patient is a pleasant 58-year-old female who presents today for 1 month follow- up. She rates her pain today a 0 out of 10. Patient states between the compounded cream and her injections in her bilateral SIs that was done in April she still has been having significant relief. Patient states that she has been able to increase her activity with decreased pain and overall improved function. Patient is prescribed [place], gabapentin, Flexeril and lorazepam from her primary care provider. Her Dagoberto has been reviewed and is appropriate. Review of Systems: General: No recent weight changes, no fever, no sleep disturbances Respiratory: No cough, no shortness of air, no recurring pulmonary infections Cardiovascular/peripheral vascular: No chest pain, no palpitations, no edema, no shortness of breath Gastrointestinal: No new onset incontinence, normal bowel movements reported Genitourinary: No new onset incontinence Musculoskeletal: Low back pain Psychiatric: [Normal mood/affect] Neurological: [Denies weakness in extremities], [denies balance issues] Objective:: Physical Exam: General: Alert and oriented x3, no acute distress, pleasant and cooperative Lungs: Respirations even and unlabored, symmetrical chest expansion Eyes: PERRL Musculoskeletal: Flexion and extension of lumbar [spine] somewhat guarded secondary to pain, [antalgic gait noted] Neurological: Speech clear, no gross sensory deficit Assessment:: Low back pain, bilateral hip pain, bilateral sacroiliitis, neck pain Plan:: Patient continues to be well following her left SI injections and compounded cream application. She does not require any additional injection therapy at this time. Patient will return to clinic in 3 months for reevaluate patient's symptoms and plan of care. Patient has been instructed to contact the clinic with any concerns before the next appointment. Dr. Edwards has reviewed this note and agrees with this plan of care. This note was dictated using voice recognition software and make contain errors or omissions. [facility] Disclaimer: The information contained in this section may have been updated after the patient was seen, as this information can be updated by other users. Medical History Abdominal pain Anxiety and depression Chest pain Diabetes Diastolic heart failure Edema GERD (gastroesophageal reflux disease) HHD (hypertensive heart disease) HTN (hypertension) Hyperlipidemia M?ni?re's syndrome or vertigo Surgical History History of bariatric surgery History of carpal tunnel release History of hysterectomy History of tonsillectomy Hx of cholecystectomy Stented coronary artery Family History Son Coronary artery disease, Onset Age: 37 Other Family history of cancer Family history of diabetes mellitus Family history of hyperlipidemia Family history of myocardial infarction Social History Smoking Status: Current every day smoker tobacco type: cigarettes packs per day: 1 years smoked: 40 second hand exposure: No alcohol intake: never substance use type: denies use current occupational status: unemployed Travel in the last 8 weeks: None household members: none housing: house number of children: 2 current occupational exposures/hazards: No caffeine: Yes
[2023-07-05 15:15] VITALS: BP 108/66; PULSE 86; RESP 18; O2SAT 95; BMI 23.3
== END 2023-07-05 23:59 ==
LOC: SC.PAIN 14:14
PROVIDERS: PCP Nurse Practitioner Family; Visit Provider Nurse Practitioner Family
DX: M54.50 Low back pain, unspecified (principal); M25.551 Pain in right hip; M25.552 Pain in left hip; M46.1 Sacroiliitis, not elsewhere classified; M54.2 Cervicalgia
CPT/HCPCS: 99212; G0463

== ENCOUNTER 2023-10-05 09:23 | Outpatient (POV) | payer MEDICARE, MEDICAID, SELFPAY ==
--- NOTE | 2023-10-05 09:48 | A.OFFVIS_ITS ---
[facility] Pain Management SOAP Note Subjective:: Patient is a pleasant 58-year-old female who presents today for follow-up. Today she states that she is starting to have a little bit more pain in and around her low back and hips on the left side. Patient did prior have left SI injections that provided significant relief for months however she states that she has recently started aerobics and feels like this may be causing some of her pain. Patient does state that she feels like she just needs to get a little bit more used to this activity and that this will improve the overall pain symptoms. Patient still is interested in additional injection therapy in future. Patient is prescribed [place] gabapentin Flexeril and lorazepam from her PCP and compounded cream from our office. She denies any side effects from this medication. Her Dagoberto has been reviewed and is appropriate. Review of Systems: General: No recent weight changes, no fever, no sleep disturbances Respiratory: No cough, no shortness of air, no recurring pulmonary infections Cardiovascular/peripheral vascular: No chest pain, no palpitations, no edema, no shortness of breath Gastrointestinal: No new onset incontinence, normal bowel movements reported Genitourinary: No new onset incontinence Musculoskeletal: Low back pain, left hip pain Psychiatric: [Normal mood/affect] Neurological: [Denies weakness in extremities], [denies balance issues] Objective:: Physical Exam: General: Alert and oriented x3, no acute distress, pleasant and cooperative Lungs: Respirations even and unlabored, symmetrical chest expansion Eyes: PERRL Musculoskeletal: Flexion and extension of lumbar [spine] somewhat guarded secondary to pain, [antalgic gait noted] point tenderness along left SI with positive left Trish's, Kerline's, Gaenslen's, compression and distraction exam Neurological: Speech clear, no gross sensory deficit Assessment:: Low back pain, left sacroiliitis, neck pain, bilateral hip pain Plan:: I have discussed with the patient that hopefully it does improve over time with her current pain she is experiencing due to the new activity. We will plan on seeing the patient back in 3 months for reevaluation of symptoms and plan of care. Patient has been instructed to contact the clinic with any concerns before the next appointment. Dr. Edwards has reviewed this note and agrees with this plan of care. This note was dictated using voice recognition software and make contain errors or omissions. [facility] Disclaimer: The information contained in this section may have been updated after the patient was seen, as this information can be updated by other users. Medical History Abdominal pain Anxiety and depression GERD (gastroesophageal reflux disease) Diastolic heart failure HTN (hypertension) Chest pain Edema M?ni?re's syndrome or vertigo Diabetes HHD (hypertensive heart disease) Hyperlipidemia Surgical History History of carpal tunnel release History of tonsillectomy History of bariatric surgery Hx of cholecystectomy History of hysterectomy Stented coronary artery Family History Son Coronary artery disease, Onset Age: 37 Other Family history of cancer Family history of diabetes mellitus Family history of hyperlipidemia Family history of myocardial infarction Social History Smoking Status: Current every day smoker tobacco type: cigarettes packs per day: 1 years smoked: 40 second hand exposure: No alcohol intake: never substance use type: denies use current occupational status: unemployed Travel in the last 8 weeks: None household members: none housing: house number of children: 2 current occupational exposures/hazards: No caffeine: Yes
[2023-10-05 10:53] VITALS: BP 100/62; PULSE 82; RESP 18; O2SAT 96; BMI 22.8
== END 2023-10-05 23:59 | disposition home or self-care (01) ==
PROVIDERS: PCP Nurse Practitioner Family; Visit Provider Nurse Practitioner Family
DX: M54.50 Low back pain, unspecified (principal); M46.1 Sacroiliitis, not elsewhere classified; M54.2 Cervicalgia; M25.551 Pain in right hip; M25.552 Pain in left hip
CPT/HCPCS: 99212; G0463

== ENCOUNTER 2023-10-09 13:56 | Outpatient (CLI) | payer MEDICARE, MEDICAID, SELFPAY ==
[2023-10-09 14:02] VITALS: BP 131/72; PULSE 70; RESP 18; TEMP 36.7; O2SAT 97
[2023-10-09] MEDS: DENOSUMAB 60 MG/ML SYRINGE SQ (14:02)
== END 2023-10-09 14:10 | disposition home or self-care (01) ==
LOC: INF 13:57
PROVIDERS: PCP Nurse Practitioner Family; Visit Provider Nurse Practitioner Family
DX: M81.8 Other osteoporosis without current pathological fracture (principal); M15.4 Erosive (osteo)arthritis; M47.816 Spondylosis without myelopathy or radiculopathy, lumbar region; Z79.899 Other long term (current) drug therapy
CPT/HCPCS: 96372; J0897

== ENCOUNTER 2023-11-28 13:56 | Outpatient (CLI) | payer MEDICARE, MEDICAID, SELFPAY ==
[2023-11-28 18:01] LABS: Basophils % 0.5 % (0.1-2.0); Eosinophils # 0.4 K/mm3 (0.0-0.4); Eosinophils % 4.5 % (0.1-12.0); Hemoglobin 14.7 g/dL (12.2-16.2); Lymphocytes # 1.9 K/mm3 (0.7-4.5); Mean Corpuscular HGB Conc 33.3 g/dL (31.8-35.4); Mean Corpuscular Hemoglobin 33.3 pg (27.0-31.2); Mean Corpuscular Volume 99.9 fl (81-99); Mean Platelet Volume 10.6 fl (7.4-10.4); Monocytes # 0.4 K/mm3 (0.1-1.0); Monocytes % 5.5 % (1.7-9.3); Neutrophils # 5.1 K/mm3 (1.8-7.8); Neutrophils % 65.4 % (37.0-80.0); Platelet Count 240 K/mm3 (142-424); Red Blood Count 4.41 M/mm3 (4.20-5.40); Red Cell Distribution Width 12.9 % (11.5-17.5); White Blood Count 7.8 K/mm3 (4.8-10.8)
[2023-11-28 18:43] LABS: Alanine Aminotransferase 14 U/L (12-78); Albumin Level 3.6 g/dl (3.5-5.0); Albumin/Globulin Ratio 1.2 (1.1-1.8); Alkaline Phosphatase 103 U/L (38-126); Anion Gap 11.5 mEq/L (5-15); Aspartate Amino Transferase 24 U/L (14-36); Bilirubin,Total 0.3 mg/dl (0.2-1.3); Blood Urea Nitrogen 11 mg/dl (7-17); Calcium 8.6 mg/dl (8.4-10.2); Carbon Dioxide 26 mmol/L (22.0-30.0); Chloride 100 mmol/L (98-107); Estimated Glomerular Filt Rate 64 ml/min (>60); GFR (African American) 78 ML/MIN (>60); Globulin 3.1 g/dL (1.3-3.2); Glucose 54 mg/dl (74-100); Potassium 4.5 mmoL/L (3.5-5.1); Sodium 133 mmol/L (136-145); Total Protein,Serum 6.7 g/dl (6.3-8.2)
[2023-11-28 18:49] LABS: Creatinine,Urine Random 26 mg/dL (Not Estab.)
[2023-11-28 18:51] LABS: Microalbumin < 6.000 mg/L (0-16.7)
[2023-11-29 09:37] LABS: HIV (1&2) Antibody Rapid NONREACTIVE (NONREACTIVE)
[2023-11-30 07:30] LABS: HCV Ab Non Reactive (Non Reactive)
== END 2023-11-28 23:59 | disposition home or self-care (01) ==
LOC: LAB.DROPOF 11-29 13:56
PROVIDERS: PCP Nurse Practitioner Family; Visit Provider Nurse Practitioner Family
DX: I25.10 Atherosclerotic heart disease of native coronary artery without angina pectoris (principal); M46.1 Sacroiliitis, not elsewhere classified; G89.4 Chronic pain syndrome; E11.9 Type 2 diabetes mellitus without complications; Z79.899 Other long term (current) drug therapy; Z72.0 Tobacco use
CPT/HCPCS: 80053; 82043; 82570; 85025

== ENCOUNTER 2023-12-28 14:57 | Outpatient (CLI) | payer MEDICARE, MEDICAID, SELFPAY ==
[2023-12-28 19:47] LABS: Creatinine,Urine Random 10 mg/dL (Not Estab.); Microalbumin < 6.000 mg/L (0-16.7)
== END 2023-12-28 23:59 | disposition home or self-care (01) ==
LOC: LAB.DROPOF 12-29 14:57
PROVIDERS: PCP Nurse Practitioner Family; Visit Provider Nurse Practitioner Family
DX: M54.9 Dorsalgia, unspecified (principal)
CPT/HCPCS: 82043; 82570

== ENCOUNTER 2024-01-04 12:59 | Outpatient (POV) | payer MEDICARE, MEDICAID, SELFPAY ==
--- NOTE | 2024-01-04 13:15 | EXP.PAIN.SOA ---
[facility] Disclaimer: The information contained in this section may have been updated after the patient was seen, as this information can be updated by other users. Medical History (Updated 01/03/24 @ 11:02 by Blanca Hazel APRN) Bilateral serous otitis media Chronic dysfunction of both eustachian tubes Ear drainage Otalgia of both ears Abdominal pain Anxiety and depression GERD (gastroesophageal reflux disease) Diastolic heart failure HTN (hypertension) Chest pain Edema M?ni?re's syndrome or vertigo Diabetes HHD (hypertensive heart disease) Hyperlipidemia Surgical History History of carpal tunnel release History of tonsillectomy History of bariatric surgery Hx of cholecystectomy History of hysterectomy Stented coronary artery Family History Son Coronary artery disease, Onset Age: 37 Other Family history of cancer Family history of diabetes mellitus Family history of hyperlipidemia Family history of myocardial infarction Social History Smoking Status: Current every day smoker tobacco type: cigarettes packs per day: 1 years smoked: 40 second hand exposure: No alcohol intake: never substance use type: denies use current occupational status: unemployed Travel in the last 8 weeks: None household members: none housing: house number of children: 2 current occupational exposures/hazards: No caffeine: Yes PM Subjective & Objective Subjective Subjective:: Patient is a pleasant 58-year-old female who presents today for 3-month follow-up. She rates her pain today a7 out of 10. She denies any new trauma or injury. She does state that where she was doing the water aerobics that was really helping manage her overall low back and hip pain however over the last months she has had double ear infections and had to discontinue the water aerobics. Patient states that they are unsure whether or not he should be able to do this again. She states that her PCP was saying that they think she just holds water in her ears and that with that type of therapy it does increase her chance of additional infection. Patient has been on antibiotics and steroids. Patient does describe the pain as an aching, throbbing sensation that is fairly constant and does interfere with her ability to perform activities of daily living such as cooking and cleaning. Patient has tried and failed conservative therapy including continued at home stretching exercise for longer than 6 weeks. Patient is prescribed [place] gabapentin Flexeril and lorazepam from her PCP and compounded cream from our office. She denies any side effects from this medication. Her Dagoberto has been reviewed and is appropriate. Review of Systems: General: No recent weight changes, no fever, no sleep disturbances Respiratory: No cough, no shortness of air, no recurring pulmonary infections Cardiovascular/peripheral vascular: No chest pain, no palpitations, no edema, no shortness of breath Gastrointestinal: No new onset incontinence, normal bowel movements reported Genitourinary: No new onset incontinence Musculoskeletal: Low back pain, hip pain Psychiatric: [Normal mood/affect] Neurological: [Denies weakness in extremities], [denies balance issues] Pain at rest (0-10 scale): 7 Objective Objective:: Physical Exam: General: Alert and oriented x3, no acute distress, pleasant and cooperative Lungs: Respirations even and unlabored, symmetrical chest expansion Eyes: PERRL Musculoskeletal: Flexion and extension of lumbar [spine] somewhat guarded secondary to pain, [antalgic gait noted] point tenderness along bilateral SIs with positive bilateral Trish's, Kerline's, Gaenslen's, compression and distraction exam Neurological: Speech clear, no gross sensory deficit Has patient had previous pain injection?: No Conservative treatment options previously tried: Home exercise plan Length of treatment: Longer than 6 weeks Meds Home Medications and Allergies Home Medications ?Medication ?Instructions ?Recorded ?Confirmed ?Type aspirin 81 mg tablet,delayed 81 mg PO QDAY CAD 05/22/17 01/03/24 History release (Adult Low Dose Aspirin) pen needle, diabetic 32 gauge x 10/17/22 01/03/24 History 1/4 (Novofine 32) denosumab 60 mg/mL subcutaneous 60 mg SQ [id number] Osteoporosis #1 03/27/23 01/03/24 Rx syringe (Prolia) mL nitroglycerin 0.4 mg sublingual See Rx Instructions .Route 05/08/23 01/03/24 Rx tablet .COMPLEX Chest pain #30 tabs albuterol sulfate 90 mcg/actuation 2 inh inhalation Q4-6H PRN 05/25/23 01/03/24 Rx breath activated powder breathing #1 ea inhaler,sensor vits no.126-ferrous fum See Rx Instructions .Route 08/07/23 01/03/24 Rx 28 mg iron-folic acid 800 mcg .COMPLEX #90 tabs tablet (Classic ) losartan 50 mg tablet 50 mg PO DAILY #90 tabs 10/11/23 01/03/24 Rx fluoxetine 40 mg capsule (Prozac) 40 mg PO DAILY #30 caps 10/23/23 01/03/24 Rx omeprazole 40 mg capsule,delayed See Rx Instructions .Route 10/23/23 01/03/24 Rx release .COMPLEX #90 caps potassium chloride 20 mEq See Rx Instructions .Route 11/07/23 01/03/24 Rx tablet,extended release(part/cryst) .COMPLEX #90 tabs famotidine 20 mg tablet See Rx Instructions .Route 11/08/23 01/03/24 Rx .COMPLEX #180 tabs atorvastatin 40 mg tablet See Rx Instructions .Route 11/20/23 01/03/24 Rx .COMPLEX #90 tabs trazodone 50 mg tablet See Rx Instructions .Route 11/21/23 01/03/24 Rx .COMPLEX #90 tabs ondansetron HCl 4 mg tablet See Rx Instructions .Route 11/28/23 01/03/24 Rx .COMPLEX #60 ea fluticasone propionate 50 1 spray intranasal DAILY ALLERGIES 12/04/23 01/03/24 Rx mcg/actuation nasal #16 grams spray,suspension pramipexole 0.5 mg tablet See Rx Instructions .Route 12/04/23 01/03/24 Rx .COMPLEX #90 tabs hydrocodone 5 mg-acetaminophen 325 1 tab PO Q8H PRN pain #90 tabs 12/10/23 01/03/24 Rx mg tablet ranolazine 500 mg tablet,extended 500 mg PO BID Chest pain #180 tabs 12/11/23 01/03/24 Rx release,12 hr spironolactone 50 mg tablet 50 mg PO DAILY #90 tabs 12/11/23 01/03/24 Rx mirabegron 25 mg tablet,extended See Rx Instructions .Route 12/18/23 01/03/24 Rx release 24 hr (Myrbetriq) .COMPLEX #90 tabs gabapentin 300 mg capsule 300 mg PO TID #90 caps 12/19/23 01/03/24 Rx metoprolol succinate 25 mg 25 mg PO DAILY #90 tabs 12/20/23 01/03/24 Rx tablet,extended release 24 hr (Toprol XL) cyclobenzaprine 10 mg tablet See Rx Instructions .Route 12/21/23 01/03/24 Rx .COMPLEX #90 tabs semaglutide 1 mg/dose (4 mg/3 mL) 1 mg (0.75 mL) SQ WEEKLY . #3 mL 12/22/23 01/03/24 Rx subcutaneous pen injector (Ozempic) furosemide 80 mg tablet See Rx Instructions .Route 12/27/23 01/03/24 Rx .COMPLEX #90 tabs pseudoephedrine HCl 120 mg 120 mg PO Q12H #60 tabs 12/28/23 01/03/24 Rx tablet,extended release (Sudafed 12 Hour) cetirizine 10 mg tablet See Rx Instructions .Route 01/01/24 01/03/24 Rx .COMPLEX #90 tabs azelastine 137 mcg (0.1 %) nasal 2 spray intranasal BID #30 mL 01/03/24 01/03/24 Rx spray dicyclomine 20 mg tablet See Rx Instructions .Route 01/04/24 Rx .COMPLEX #120 tabs meclizine 25 mg chewable tablet See Rx Instructions .Route 01/04/24 Rx .COMPLEX #90 ea metoclopramide HCl 10 mg tablet See Rx Instructions .Route 01/04/24 Rx .COMPLEX #90 tabs New Prescriptions to Start Prescriptions: Allergies Allergy/AdvReac Type Severity Reaction Status Date / Time alcohol [ALCOHOL] Allergy Severe SEVERE Verified 01/03/24 10:14 SHORTNESS OF BREATH, HIVES, VOMITING promethazine [PROMETHAZINE] Allergy Mild Verified 01/03/24 10:14 paregoric Allergy Verified 01/03/24 10:14 Assessment and Plan *Assessment and plan (1) Bilateral sacroiliitis: Status: Acute Category: Medical Code(s): M46.1 - Sacroiliitis, not elsewhere classified (2) Degenerative disc disease, lumbar: Status: Acute Category: Medical Code(s): M51.36 - Other intervertebral disc degeneration, lumbar region Plan Patient is experiencing worsening pain throughout her low back and bilateral hips with limited range of motion. Patient did have extreme point tenderness along her bilateral SIs with a positive bilateral Trish's, Kerline's, Gaenslen's, compression and distraction exam. I did discuss with the patient that she may benefit from repeat SI injection. Patient has had these injections in the past that did provide more than 80% relief and on average lasted approximately 3 months or more. Patient has not had these injections since April of this year. Risk and benefits of these injections were explained to the patient and she would like to proceed forward with this plan of care. Patient has tried and failed conservative therapy including continued at home stretching exercise for longer than 6 weeks. We will schedule the patient for a repeat bilateral SI injections under fluoroscopy. Patient has been instructed to contact the clinic with any concerns before the next appointment. Dr. Edwards has reviewed this note and agrees with this plan of care. This note was dictated using voice recognition software and make contain errors or omissions. All injections are used with Lidocaine or Bupivacaine and Depo Medrol.
[2024-01-04 13:21] VITALS: BP 118/66; PULSE 75; RESP 16; O2SAT 100; BMI 23.1
== END 2024-01-04 23:59 | disposition home or self-care (01) ==
LOC: SC.PAIN 13:00
PROVIDERS: PCP Nurse Practitioner Family; Visit Provider Nurse Practitioner Family
DX: M46.1 Sacroiliitis, not elsewhere classified (principal); M51.36 Other intervertebral disc degeneration, lumbar region; F17.210 Nicotine dependence, cigarettes, uncomplicated; Z95.5 Presence of coronary angioplasty implant and graft; Z73.89 Other problems related to life management difficulty; Z79.899 Other long term (current) drug therapy
CPT/HCPCS: 99212; G0463

== ENCOUNTER 2024-01-30 10:57 | Day surgery (SDC) | payer MEDICARE, SELFPAY ==
[2024-01-30 11:24] VITALS: BP 100/65; BP 92/53; PULSE 83; PULSE 88; RESP 16; TEMP 36.4; O2SAT 98; BMI 22.8
[2024-01-30] MEDS: methylPREDNISolone ACETATE 80MG/ML VIAL 80 MG (11:30)
[2024-01-30] MEDS: BUPIVACAINE 0.25% 10ML INJ 25 MG IJ (11:31)
[2024-01-30] MEDS: LIDOCAINE 1% 5ML PF VIAL 5 ML (11:31)
[2024-01-30 11:32] VITALS: BP 93/54; PULSE 78; RESP 18; O2SAT 95
--- NOTE | 2024-01-30 11:56 | P.PCN_ITS ---
Procedure Date: 01/30/24 Time: 11:00 Anesthesiologist:: Faisal Castrejon CRNA Complications:: None Pre-procedure Diagnosis:: Bilateral sacroiliitis Post-procedure Diagnosis:: Same. Indications for Procedure:: Patient very pleasant 58-year-old female comes our clinic today for bilateral sacroiliac joint injections cortisone. Patient has responded very well to this injection in the past. Today she describes low lumbar back pain off midline bilaterally. Difficulty transitioning from sitting to standing. Difficulty with ambulation due to the pain. Also, bilateral posterior hip pain is constant, dull, aching. She rates her pain 8/10. Procedure Details:: Procedure: Bilateral sacroiliac joint injections under fluoroscopy Informed consent was obtained and the risks and benefits of the procedure were explained to the patient.~ The patient was taken to the procedure room and noninvasive monitors were placed including a noninvasive blood pressure cuff and pulse oximeter.~ The patient was placed prone on the procedure table. Both hips were cleansed using Betadine as a cleansing solution. C-arm fluoroscopy was used to view the right sacroiliac joint.~ The skin and subcutaneous tissues were anesthetized using lidocaine 1.5% and a 25-gauge needle.~ After this, a 22-gauge spinal needle was inserted under fluoroscopic guidance into the inferior aspect of the right sacroiliac joint.~ Omnipaque dye was injected and good spread was seen throughout the joint.~ After this, approximately 5 mL of bupivacaine, 0.25% and Depo-Medrol, 40 mg was incrementally injected into the right sacroiliac joint. We then moved to the left sacroiliac joint.~ The skin and subcutaneous tissues were anesthetized using lidocaine 1.5% and a 25-gauge needle.~ After this, a 22- gauge spinal needle was inserted under fluoroscopic guidance into the inferior aspect of the left sacroiliac joint.~ Omnipaque dye was injected and good spread was seen throughout the joint. After this, approximately 5 mL of bupivacaine, 0.25% and Depo-Medrol, 40 mg was incrementally injected into the left sacroiliac joint.~ The patient tolerated the procedure well with no complications. The patient was observed in the Pain Clinic and then was discharged home neurologically intact. Plan and Disposition:: Patient was discharged without incident.
== END 2024-01-30 11:38 | disposition home or self-care (01) ==
PROVIDERS: PCP Nurse Practitioner Family; Visit Provider Nurse Anesthetist, Certified Registered
DX: M46.1 Sacroiliitis, not elsewhere classified (principal)
CPT/HCPCS: 27096; G0260; J1010

== ENCOUNTER 2024-02-06 10:43 | Outpatient (CLI) | payer MEDICARE, SELFPAY ==
--- NOTE | 2024-02-06 10:47 | MM_ITS ---
PROCEDURE INFORMATION: Exam: MG Bilateral Screening 3D Mammography Exam date and time: 02/06/2024 10:39 AM Age: 58 years old Clinical indication: Screening examination TECHNIQUE: Imaging protocol: Bilateral Screening tomosynthesis and 2D mammography including computer-aided detection (CAD) when performed. COMPARISON: 1. MG MM DIG SCREENING MAMM BI W/CAD 01/31/2023 3:44 PM 2. MG MM DIG SCREENING MAMM BI W/CAD 02/09/2022 10:10 AM FINDINGS: MAMMOGRAPHY: Breast composition: There are scattered areas of fibroglandular density. Mass: None. Architectural distortion: None. Calcifications: No suspicious calcifications. Asymmetric density: None. Skin thickening: None. Axillary adenopathy: None. IMPRESSION: No mammographic evidence of malignancy. Annual screening is recommended unless otherwise clinically indicated. ASSESSMENT: BI-RADS Category 1: Negative.
== END 2024-02-06 23:59 | disposition home or self-care (01) ==
LOC: RAD 10:44
PROVIDERS: PCP Nurse Practitioner Family; Visit Provider Nurse Practitioner Family
DX: Z12.31 Encounter for screening mammogram for malignant neoplasm of breast (principal)
CPT/HCPCS: 77063; 77067

== ENCOUNTER 2024-02-21 11:22 | Outpatient (POV) | payer MEDICARE, SELFPAY ==
--- NOTE | 2024-02-21 12:10 | A.OFFVIS_ITS ---
[facility] Disclaimer: The information contained in this section may have been updated after the patient was seen, as this information can be updated by other users. Medical History (Updated 01/31/24 @ 14:30 by Blanca Hazel APRN) Bilateral hearing loss Otitis externa Bilateral serous otitis media Chronic dysfunction of both eustachian tubes Ear drainage Otalgia of both ears Abdominal pain Anxiety and depression GERD (gastroesophageal reflux disease) Diastolic heart failure HTN (hypertension) Chest pain Edema M?ni?re's syndrome or vertigo Diabetes HHD (hypertensive heart disease) Hyperlipidemia Surgical History History of carpal tunnel release History of tonsillectomy History of bariatric surgery Hx of cholecystectomy History of hysterectomy Stented coronary artery Family History Son Coronary artery disease, Onset Age: 37 Other Family history of cancer Family history of diabetes mellitus Family history of hyperlipidemia Family history of myocardial infarction Social History Smoking Status: Current every day smoker tobacco type: cigarettes packs per day: 1 years smoked: 40 second hand exposure: No alcohol intake: never substance use type: denies use current occupational status: other Travel in the last 8 weeks: None household members: none housing: house number of children: 2 current occupational exposures/hazards: No caffeine: Yes PM Subjective & Objective Subjective Subjective:: Patient is a pleasant 58-year-old female who presents today for follow-up of bilateral SI injections on 01/30/2024. Today she rates her pain a 0 out of 10. She denies any new trauma or injury. She does state that she has had 100% relief following this injections and that they are still working well. Patient is managed with [place], gabapentin, Flexeril and lorazepam from her PCP and compounded cream from our office. She denies any side effects from this medication. Her Dagoberto has been reviewed and is appropriate. Review of Systems: General: No recent weight changes, no fever, no sleep disturbances Respiratory: No cough, no shortness of air, no recurring pulmonary infections Cardiovascular/peripheral vascular: No chest pain, no palpitations, no edema, no shortness of breath Gastrointestinal: No new onset incontinence, normal bowel movements reported Genitourinary: No new onset incontinence Musculoskeletal: Low back pain Psychiatric: [Normal mood/affect] Neurological: [Denies weakness in extremities], [denies balance issues] Pain at rest (0-10 scale): 0 Objective Objective:: Physical Exam: General: Alert and oriented x3, no acute distress, pleasant and cooperative Lungs: Respirations even and unlabored, symmetrical chest expansion Eyes: PERRL Musculoskeletal: Flexion and extension of lumbar [spine] within normal limits Neurological: Speech clear, no gross sensory deficit Has patient had previous pain injection?: Yes Percent improvement in pain since last injection: 100% Conservative treatment options previously tried: Home exercise plan Length of treatment: Longer than 12 weeks Meds Home Medications and Allergies Home Medications ?Medication ?Instructions ?Recorded ?Confirmed ?Type aspirin 81 mg tablet,delayed 81 mg PO QDAY CAD 05/22/17 01/31/24 History release (Adult Low Dose Aspirin) pen needle, diabetic 32 gauge x 10/17/22 01/31/24 History 1/4 (Novofine 32) denosumab 60 mg/mL subcutaneous 60 mg SQ [id number] Osteoporosis #1 03/27/23 01/31/24 Rx syringe (Prolia) mL nitroglycerin 0.4 mg sublingual See Rx Instructions .Route 05/08/23 01/31/24 Rx tablet .COMPLEX Chest pain #30 tabs albuterol sulfate 90 mcg/actuation 2 inh inhalation Q4-6H PRN 05/25/23 01/31/24 Rx breath activated powder breathing #1 ea inhaler,sensor pramipexole 0.5 mg tablet See Rx Instructions .Route 12/04/23 01/31/24 Rx .COMPLEX #90 tabs ranolazine 500 mg tablet,extended 500 mg PO BID Chest pain #180 tabs 12/11/23 01/31/24 Rx release,12 hr spironolactone 50 mg tablet 50 mg PO DAILY #90 tabs 12/11/23 01/31/24 Rx metoprolol succinate 25 mg 25 mg PO DAILY #90 tabs 12/20/23 01/31/24 Rx tablet,extended release 24 hr (Toprol XL) furosemide 80 mg tablet See Rx Instructions .Route 12/27/23 01/31/24 Rx .COMPLEX #90 tabs pseudoephedrine HCl 120 mg 120 mg PO Q12H #60 tabs 12/28/23 01/31/24 Rx tablet,extended release (Sudafed 12 Hour) cetirizine 10 mg tablet See Rx Instructions .Route 01/01/24 01/31/24 Rx .COMPLEX #90 tabs losartan 50 mg tablet 50 mg PO DAILY #90 tabs 01/11/24 01/31/24 Rx vits no.126-ferrous fum See Rx Instructions .Route 01/11/24 01/31/24 Rx 28 mg iron-folic acid 800 mcg .COMPLEX #90 tabs tablet (Classic ) omeprazole 40 mg capsule,delayed See Rx Instructions .Route 01/16/24 01/31/24 Rx release .COMPLEX #90 caps fluoxetine 40 mg capsule (Prozac) 40 mg PO DAILY #30 caps 01/22/24 01/31/24 Rx cyclobenzaprine 10 mg tablet See Rx Instructions .Route 01/24/24 01/31/24 Rx .COMPLEX #90 tabs azelastine 137 mcg (0.1 %) nasal 2 spray intranasal BID #30 mL 01/31/24 Rx spray dicyclomine 20 mg tablet See Rx Instructions .Route 01/31/24 01/31/24 Rx .COMPLEX #120 tabs potassium chloride 20 mEq See Rx Instructions .Route 01/31/24 01/31/24 Rx tablet,extended release(part/cryst) .COMPLEX #90 tabs meclizine 25 mg chewable tablet See Rx Instructions .Route 02/03/24 Rx .COMPLEX #90 ea metoclopramide HCl 10 mg tablet See Rx Instructions .Route 02/03/24 Rx .COMPLEX #90 tabs famotidine 20 mg tablet See Rx Instructions .Route 02/07/24 Rx .COMPLEX #180 tabs hydrocodone 5 mg-acetaminophen 325 1 tab PO Q8H PRN pain #90 tabs 02/08/24 Rx mg tablet mirabegron 25 mg tablet,extended See Rx Instructions .Route 02/12/24 Rx release 24 hr (Myrbetriq) .COMPLEX #90 tabs ondansetron HCl 4 mg tablet See Rx Instructions .Route 02/12/24 Rx .COMPLEX #60 ea gabapentin 300 mg capsule 300 mg PO TID #90 caps 02/13/24 Rx atorvastatin 40 mg tablet See Rx Instructions .Route 02/16/24 Rx .COMPLEX #90 tabs trazodone 50 mg tablet See Rx Instructions .Route 02/16/24 Rx .COMPLEX #90 tabs semaglutide 1 mg/dose (4 mg/3 mL) 1 mg (0.75 mL) SQ WEEKLY . #3 mL 02/19/24 Rx subcutaneous pen injector (Ozempic) New Prescriptions to Start Prescriptions: Allergies Allergy/AdvReac Type Severity Reaction Status Date / Time alcohol [ALCOHOL] Allergy Severe SEVERE Verified 01/31/24 14:12 SHORTNESS OF BREATH, HIVES, VOMITING promethazine [PROMETHAZINE] Allergy Mild Verified 01/31/24 14:12 paregoric Allergy Verified 01/31/24 14:12 Assessment and Plan *Assessment and plan (1) Bilateral sacroiliitis: Status: Acute Category: Medical Code(s): M46.1 - Sacroiliitis, not elsewhere classified Plan Patient has had significant improvement following her SI injections and does not require any additional injection therapy at this time. Patient will return to clinic in 6 weeks for reevaluation of symptoms and plan of care. Patient has been instructed to contact the clinic with any concerns before the next appointment. Dr. Edwards has reviewed this note and agrees with this plan of care. This note was dictated using voice recognition software and make contain errors or omissions. All injections are used with Lidocaine or Bupivacaine and Depo Medrol.
[2024-02-21 12:45] VITALS: BP 112/60; PULSE 88; RESP 18; O2SAT 96; BMI 22.8
== END 2024-02-21 23:59 | disposition home or self-care (01) ==
LOC: SC.PAIN 11:22
PROVIDERS: PCP Nurse Practitioner Family; Visit Provider Nurse Practitioner Family
DX: M46.1 Sacroiliitis, not elsewhere classified (principal); F17.210 Nicotine dependence, cigarettes, uncomplicated; Z79.899 Other long term (current) drug therapy
CPT/HCPCS: 99212; G0463

== ENCOUNTER 2024-02-27 15:32 | Outpatient (CLI) | payer MEDICARE, SELFPAY ==
[2024-02-27 18:11] LABS: Basophils # 0.1 K/mm3 (0-0.2); Basophils % 0.9 % (0.1-2.0); Eosinophils # 0.4 K/mm3 (0.0-0.4); Eosinophils % 4.2 % (0.1-12.0); Hematocrit 43.4 % (37.0-47.0); Hemoglobin 14.4 g/dL (12.2-16.2); Lymphocytes # 2.5 K/mm3 (0.7-4.5); Lymphocytes % 27.5 % (10-50); Mean Corpuscular HGB Conc 33.2 g/dL (31.8-35.4); Mean Corpuscular Hemoglobin 32.4 pg (27.0-31.2); Mean Corpuscular Volume 97.7 fl (81-99); Mean Platelet Volume 8.2 fl (7.4-10.4); Monocytes # 0.5 K/mm3 (0.1-1.0); Monocytes % 4.9 % (1.7-9.3); Neutrophils # 5.7 K/mm3 (1.8-7.8); Neutrophils % 62.5 % (37.0-80.0); Platelet Count 267 K/mm3 (142-424); Red Blood Count 4.44 M/mm3 (4.20-5.40); Red Cell Distribution Width 13.1 % (11.5-17.5); White Blood Count 9.2 K/mm3 (4.8-10.8)
[2024-02-27 18:13] LABS: Microalbumin/Creatinine Ratio 10.7
[2024-02-27 18:32] LABS: Creatinine,Urine Random 95 mg/dL (Not Estab.)
[2024-02-27 18:54] LABS: 25-OH Vitamin D, Total 35.4 ng/mL (30-100)
== END 2024-02-27 23:59 | disposition home or self-care (01) ==
LOC: LAB.DROPOF 02-28 09:44
PROVIDERS: PCP Nurse Practitioner Family; Visit Provider Nurse Practitioner Family
DX: E11.9 Type 2 diabetes mellitus without complications (principal); E55.9 Vitamin D deficiency, unspecified
CPT/HCPCS: 82043; 82306; 82570; 85025

== ENCOUNTER 2024-04-03 13:13 | Outpatient (POV) | payer MEDICARE, SELFPAY ==
--- NOTE | 2024-04-03 14:04 | A.OFFVIS_ITS ---
[facility] Disclaimer: The information contained in this section may have been updated after the patient was seen, as this information can be updated by other users. Medical History Bilateral hearing loss Otitis externa Bilateral serous otitis media Chronic dysfunction of both eustachian tubes Ear drainage Otalgia of both ears Abdominal pain Anxiety and depression GERD (gastroesophageal reflux disease) Diastolic heart failure HTN (hypertension) Chest pain Edema M?ni?re's syndrome or vertigo Diabetes HHD (hypertensive heart disease) Hyperlipidemia Surgical History History of carpal tunnel release History of tonsillectomy History of bariatric surgery Hx of cholecystectomy History of hysterectomy Stented coronary artery Family History Son Coronary artery disease, Onset Age: 37 Other Family history of cancer Family history of diabetes mellitus Family history of hyperlipidemia Family history of myocardial infarction Social History Smoking Status: Current every day smoker tobacco type: cigarettes packs per day: 1 years smoked: 40 second hand exposure: No alcohol intake: never substance use type: denies use current occupational status: other Travel in the last 8 weeks: None household members: none housing: house number of children: 2 current occupational exposures/hazards: No caffeine: Yes PM Subjective & Objective Subjective Subjective:: Patient is a pleasant 59-year-old female who presents today for 6-week follow-up of bilateral SI injections on 01/30/2024. Today she rates her pain a 0 out of 10. Patient denies any new falls or injuries. She does state that she has continued to have significant improvement following those injections. She states that she is not waking up with overall back pain and feels much more functional. She is prescribed [place], gabapentin, Flexeril and lorazepam from her PCP and compounded cream from our office. Her Dagoberto has been reviewed and is appropriate. Review of Systems: General: No recent weight changes, no fever, no sleep disturbances Respiratory: No cough, no shortness of air, no recurring pulmonary infections Cardiovascular/peripheral vascular: No chest pain, no palpitations, no edema, no shortness of breath Gastrointestinal: No new onset incontinence, normal bowel movements reported Genitourinary: No new onset incontinence Musculoskeletal: Low back pain Psychiatric: [Normal mood/affect] Neurological: [Denies weakness in extremities], [denies balance issues] Pain at rest (0-10 scale): 0 Objective Objective:: Physical Exam: General: Alert and oriented x3, no acute distress, pleasant and cooperative Lungs: Respirations even and unlabored, symmetrical chest expansion Eyes: PERRL Musculoskeletal: Flexion and extension of lumbar [spine] within normal limits Neurological: Speech clear, no gross sensory deficit Has patient had previous pain injection?: No Conservative treatment options previously tried: Home exercise plan Length of treatment: Longer than 12 weeks Meds Home Medications and Allergies Home Medications ?Medication ?Instructions ?Recorded ?Confirmed ?Type aspirin 81 mg tablet,delayed 81 mg PO QDAY CAD 05/22/17 02/27/24 History release (Adult Low Dose Aspirin) pen needle, diabetic 32 gauge x 10/17/22 02/27/24 History / (Novofine 32) denosumab 60 mg/mL subcutaneous 60 mg SQ [id number] Osteoporosis #1 03/27/2309/14 Rx syringe (Prolia) mL nitroglycerin 0.4 mg sublingual See Rx Instructions .Route 05/08/23 02/27/24 Rx tablet .COMPLEX Chest pain #30 tabs albuterol sulfate 90 mcg/actuation 2 inh inhalation Q4-6H PRN 05/25/23 02/27/24 Rx breath activated powder breathing #1 ea inhaler,sensor pseudoephedrine HCl 120 mg 120 mg PO Q12H #60 tabs 12/28/23 02/27/24 Rx tablet,extended release (Sudafed 12 Hour) losartan 50 mg tablet 50 mg PO DAILY #90 tabs 01/11/24 02/27/24 Rx vits no.126-ferrous fum See Rx Instructions .Route 01/11/24 02/27/24 Rx 28 mg iron-folic acid 800 mcg .COMPLEX #90 tabs tablet (Classic ) omeprazole 40 mg capsule,delayed See Rx Instructions .Route 01/16/24 02/27/24 Rx release .COMPLEX #90 caps fluoxetine 40 mg capsule (Prozac) 40 mg PO DAILY #30 caps 01/22/24 02/27/24 Rx famotidine 20 mg tablet See Rx Instructions .Route 02/07/24 02/27/24 Rx .COMPLEX #180 tabs mirabegron 25 mg tablet,extended See Rx Instructions .Route 02/12/24 02/27/24 Rx release 24 hr (Myrbetriq) .COMPLEX #90 tabs atorvastatin 40 mg tablet See Rx Instructions .Route 02/16/24 02/27/24 Rx .COMPLEX #90 tabs trazodone 50 mg tablet See Rx Instructions .Route 02/16/24 02/27/24 Rx .COMPLEX #90 tabs pramipexole 0.5 mg tablet See Rx Instructions .Route 03/01/24 Rx .COMPLEX #90 tabs dicyclomine 20 mg tablet See Rx Instructions .Route 03/04/24 Rx .COMPLEX #120 tabs meclizine 25 mg chewable tablet See Rx Instructions .Route 03/04/24 Rx .COMPLEX #90 ea metoclopramide HCl 10 mg tablet See Rx Instructions .Route 03/04/24 Rx .COMPLEX #90 tabs potassium chloride 20 mEq See Rx Instructions .Route 03/04/24 Rx tablet,extended release(part/cryst) .COMPLEX #90 tabs hydrocodone 5 mg-acetaminophen 325 1 tab PO Q8H PRN pain #90 tabs 03/08/24 Rx mg tablet ranolazine 500 mg tablet,extended 500 mg PO BID Chest pain #180 tabs 03/08/24 Rx release,12 hr spironolactone 50 mg tablet 50 mg PO DAILY #90 tabs 03/08/24 Rx oxybutynin chloride 5 mg 5 mg PO DAILY #30 tabs 03/13/24 Rx tablet,extended release 24 hr ondansetron HCl 4 mg tablet See Rx Instructions .Route 03/18/24 Rx .COMPLEX #60 ea gabapentin 300 mg capsule 300 mg PO TID #90 caps 03/19/24 Rx cyclobenzaprine 10 mg tablet See Rx Instructions .Route 03/25/24 Rx .COMPLEX #90 tabs metoprolol succinate 25 mg 25 mg PO DAILY #90 tabs 03/25/24 Rx tablet,extended release 24 hr (Toprol XL) semaglutide 1 mg/dose (4 mg/3 mL) 1 mg (0.75 mL) SQ WEEKLY . #3 mL 03/25/24 Rx subcutaneous pen injector (Ozempic) azelastine 137 mcg (0.1 %) nasal 2 spray intranasal BID #30 mL 03/28/24 Rx spray cetirizine 10 mg tablet See Rx Instructions .Route 04/01/24 Rx .COMPLEX #90 tabs furosemide 80 mg tablet See Rx Instructions .Route 04/02/24 Rx .COMPLEX #90 tabs New Prescriptions to Start Prescriptions: Allergies Allergy/AdvReac Type Severity Reaction Status Date / Time alcohol (ALCOHOL) Allergy Severe SEVERE Verified 02/27/24 13:17 SHORTNESS OF BREATH, HIVES, VOMITING promethazine (PROMETHAZINE) Allergy Mild Verified 02/27/24 13:17 paregoric Allergy Verified 02/27/24 13:17 Assessment and Plan *Assessment and plan (1) Lumbar radiculopathy: Status: Acute Category: Medical Code(s): M54.16 - Radiculopathy, lumbar region (2) Bilateral sacroiliitis: Status: Acute Category: Medical Code(s): M46.1 - Sacroiliitis, not elsewhere classified Plan Patient continues to have significant relief following her bilateral SI injections and does not require any additional interventions at this time. Patient will return to clinic in 3 months for reevaluation of symptoms and plan of care. Patient has been instructed to contact the clinic with any concerns before the next appointment. Dr. Edwards has reviewed this note and agrees with this plan of care. This note was dictated using voice recognition software and make contain errors or omissions. All injections are used with Lidocaine or Bupivacaine and Depo Medrol.
[2024-04-03 15:59] VITALS: BP 121/68; PULSE 16; RESP 14; O2SAT 98; BMI 22.8
== END 2024-04-03 23:59 | disposition home or self-care (01) ==
LOC: SC.PAIN 13:14
PROVIDERS: PCP Nurse Practitioner Family; Visit Provider Nurse Practitioner Family
DX: M54.16 Radiculopathy, lumbar region (principal); M46.1 Sacroiliitis, not elsewhere classified; F17.210 Nicotine dependence, cigarettes, uncomplicated; Z79.899 Other long term (current) drug therapy
CPT/HCPCS: 99212; G0463

== ENCOUNTER 2024-04-11 13:55 | Outpatient (CLI) | payer MEDICARE, SELFPAY ==
[2024-04-11 14:09] VITALS: BP 106/60; PULSE 73; RESP 16; TEMP 36.8; O2SAT 95
[2024-04-11] MEDS: DENOSUMAB 60 MG/ML SYRINGE SUBCUT (14:09)
== END 2024-04-11 14:20 | disposition home or self-care (01) ==
LOC: INF 13:56
PROVIDERS: PCP Nurse Practitioner Family; Visit Provider Nurse Practitioner Family
DX: M81.0 Age-related osteoporosis without current pathological fracture (principal)
CPT/HCPCS: 96372; J0897

== ENCOUNTER 2024-07-01 13:23 | Outpatient (POV) | payer MEDICARE, SELFPAY ==
[2024-07-01 13:39] VITALS: BP 93/51; PULSE 72; RESP 18; O2SAT 95; BMI 22.8
--- NOTE | 2024-07-01 13:42 | EXP.PAIN.SOA ---
[facility] Disclaimer: The information contained in this section may have been updated after the patient was seen, as this information can be updated by other users. Medical History Bilateral hearing loss Otitis externa Bilateral serous otitis media Chronic dysfunction of both eustachian tubes Ear drainage Otalgia of both ears Abdominal pain Anxiety and depression GERD (gastroesophageal reflux disease) Diastolic heart failure HTN (hypertension) Chest pain Edema M?ni?re's syndrome or vertigo Diabetes HHD (hypertensive heart disease) Hyperlipidemia Surgical History History of carpal tunnel release History of tonsillectomy History of bariatric surgery Hx of cholecystectomy History of hysterectomy Stented coronary artery Family History Son Coronary artery disease, Onset Age: 37 Other Family history of cancer Family history of diabetes mellitus Family history of hyperlipidemia Family history of myocardial infarction Social History (Updated 06/27/24 @ 15:43 by May Payne APRN) Smoking Status: Current every day smoker tobacco type: cigarettes packs per day: 1 years smoked: 40 second hand exposure: No alcohol intake: never substance use type: denies use current occupational status: other details: disabled Travel in the last 8 weeks: None household members: none housing: house number of children: 2 number of grandchildren: 9 education level: master's degree current occupational exposures/hazards: No caffeine: Yes working smoke detector in home: Yes firearms in home: No do you feel safe at home: Yes PM Subjective & Objective Subjective Subjective:: Patient is a pleasant 59-year-old female who presents today for worsening pain. Today she rates her pain a 7 out of 10. Patient denies any new trauma or injury. She does state that she is having more pain into her bilateral hips with tenderness. She states it is a constant achy sensation but will occasionally have a throbbing stabbing sensation with certain movements such as bending or lifting. Patient does feel like it is all along her bilateral sides and does interfere with her ability perform activities of daily living such as cooking and cleaning. Patient states that she frequently tosses and turns when she tries to sleep due to the worsening pain in her hips. Patient is prescribed compounded cream from our office. Patient is also prescribed [place], gabapentin, Flexeril and lorazepam from her PCP. Her Dagoberto has been reviewed and is appropriate. Review of Systems: General: No recent weight changes, no fever, no sleep disturbances Respiratory: No cough, no shortness of air, no recurring pulmonary infections Cardiovascular/peripheral vascular: No chest pain, no palpitations, no edema, no shortness of breath Gastrointestinal: No new onset incontinence, normal bowel movements reported Genitourinary: No new onset incontinence Musculoskeletal: Bilateral hip pain Psychiatric: [Normal mood/affect] Neurological: [Denies weakness in extremities], [denies balance issues] Pain at rest (0-10 scale): 7 Objective Objective:: Physical Exam: General: Alert and oriented x3, no acute distress, pleasant and cooperative Lungs: Respirations even and unlabored, symmetrical chest expansion Eyes: PERRL Musculoskeletal: Flexion and extension of bilateral hips somewhat guarded secondary to pain, [antalgic gait noted] point tenderness along bilateral greater trochanteric bursa's Neurological: Speech clear, no gross sensory deficit Has patient had previous pain injection?: No Conservative treatment options previously tried: Home exercise plan Length of treatment: Longer than 12 weeks Meds Home Medications and Allergies Home Medications ?Medication ?Instructions ?Recorded ?Confirmed ?Type aspirin 81 mg tablet,delayed 81 mg PO QDAY CAD 05/22/17 06/27/24 History release (Adult Low Dose Aspirin) pen needle, diabetic 32 gauge x 10/17/22 06/27/24 History 1/4 (Novofine 32) denosumab 60 mg/mL subcutaneous 60 mg SQ [id number] Osteoporosis #1 03/27/23 06/27/24 Rx syringe (Prolia) mL albuterol sulfate 90 mcg/actuation 2 inh inhalation Q4-6H PRN 05/25/23 06/27/24 Rx breath activated powder breathing #1 ea inhaler,sensor pseudoephedrine HCl 120 mg 120 mg PO Q12H #60 tabs 12/28/23 06/27/24 Rx tablet,extended release (Sudafed 12 Hour) mirabegron 25 mg tablet,extended See Rx Instructions .Route 02/12/24 06/27/24 Rx release 24 hr (Myrbetriq) .COMPLEX #90 tabs pramipexole 0.5 mg tablet See Rx Instructions .Route 03/01/24 06/27/24 Rx .COMPLEX #90 tabs dicyclomine 20 mg tablet See Rx Instructions .Route 03/04/24 06/27/24 Rx .COMPLEX #120 tabs potassium chloride 20 mEq See Rx Instructions .Route 03/04/24 06/27/24 Rx tablet,extended release(part/cryst) .COMPLEX #90 tabs ondansetron HCl 4 mg tablet See Rx Instructions .Route 03/18/24 06/27/24 Rx .COMPLEX #60 ea furosemide 80 mg tablet See Rx Instructions .Route 04/02/24 06/27/24 Rx .COMPLEX #90 tabs losartan 50 mg tablet 50 mg PO DAILY #90 tabs 04/18/24 06/27/24 Rx omeprazole 40 mg capsule,delayed See Rx Instructions .Route 04/18/24 06/27/24 Rx release .COMPLEX #90 caps famotidine 20 mg tablet See Rx Instructions .Route 05/07/24 06/27/24 Rx .COMPLEX #180 tabs atorvastatin 40 mg tablet See Rx Instructions .Route 05/16/24 06/27/24 Rx .COMPLEX #90 tabs trazodone 50 mg tablet See Rx Instructions .Route 05/16/24 06/27/24 Rx .COMPLEX #90 tabs nitroglycerin 0.4 mg sublingual See Rx Instructions .Route 05/20/24 06/27/24 Rx tablet .COMPLEX Chest pain #30 tabs ciprofloxacin 0.3 %-dexamethasone 4 drp otic (ear) BID 7 days #7.5 mL 05/28/24 06/27/24 Rx 0.1 % ear drops,suspension meclizine 25 mg chewable tablet See Rx Instructions .Route 06/05/24 06/27/24 Rx .COMPLEX #90 ea metoclopramide HCl 10 mg tablet See Rx Instructions .Route 06/05/24 06/27/24 Rx .COMPLEX #90 tabs oxybutynin chloride 5 mg See Rx Instructions .Route 06/05/24 06/27/24 Rx tablet,extended release 24 hr .COMPLEX #90 tabs hydrocodone 5 mg-acetaminophen 325 1 tab PO Q8H PRN pain #90 tabs 06/10/24 06/27/24 Rx mg tablet ranolazine 500 mg tablet,extended 500 mg PO BID Chest pain #180 tabs 06/10/24 06/27/24 Rx release,12 hr spironolactone 50 mg tablet 50 mg PO DAILY #90 tabs 06/10/24 06/27/24 Rx semaglutide 1 mg/dose (4 mg/3 mL) 1 mg (0.75 mL) SQ WEEKLY . #3 mL 06/13/24 06/27/24 Rx subcutaneous pen injector (Ozempic) metoprolol succinate 25 mg 25 mg PO DAILY #90 tabs 06/18/24 06/27/24 Rx tablet,extended release 24 hr (Toprol XL) gabapentin 300 mg capsule 300 mg PO TID #90 caps 06/20/24 06/27/24 Rx cyclobenzaprine 10 mg tablet See Rx Instructions .Route 06/23/24 06/27/24 Rx .COMPLEX #90 tabs azelastine 137 mcg (0.1 %) nasal 2 spray intranasal BID #30 mL 06/24/24 06/27/24 Rx spray cetirizine 10 mg tablet See Rx Instructions .Route 06/27/24 06/27/24 Rx .COMPLEX #90 tabs fluoxetine 20 mg capsule See Rx Instructions PO DAILY #13 06/27/24 06/27/24 Rx caps hydroxyzine HCl 25 mg tablet 25 mg PO TID PRN anxiety #60 tabs 06/27/24 06/27/24 Rx magnesium oxide 500 mg PO DAILY 06/27/24 06/27/24 History multivitamin with minerals-folic tab PO 06/27/24 06/27/24 History acid 0.4 mg tablet (One-A-Day Women's 50 Plus) venlafaxine 37.5 mg 37.5 mg PO DAILY #30 caps 06/27/24 06/27/24 Rx capsule,extended release 24 hr (Effexor XR) New Prescriptions to Start Prescriptions: Allergies Allergy/AdvReac Type Severity Reaction Status Date / Time alcohol (ALCOHOL) Allergy Severe SEVERE Verified 06/27/24 15:22 SHORTNESS OF BREATH, HIVES, VOMITING promethazine (PROMETHAZINE) Allergy Mild Verified 06/27/24 15:22 paregoric Allergy Verified 06/27/24 15:22 Assessment and Plan *Assessment and plan (1) Greater trochanteric bursitis of both hips: Status: Acute Category: Medical Code(s): M70.61 - Trochanteric bursitis, right hip; M70.62 - Trochanteric bursitis, left hip (2) Bilateral hip pain: Status: Acute Category: Medical Code(s): M25.551 - Pain in right hip; M25.552 - Pain in left hip Plan Patient is experiencing worsening pain in her bilateral hips with limited range of motion and point tenderness along her bilateral greater trochanteric bursa's. I did discuss with the patient that I do believe she would benefit from bilateral bursa injections. Risk and benefits were discussed with the patient and she would like to proceed forward with this plan of care. Patient has had bilateral hip pain for longer than 3 months and has continued conservative treatment including oral medications, heat and ice, topicals, at home stretching exercise for longer than 12 weeks between injections. Patient will be scheduled for bilateral greater trochanteric bursa injections under fluoroscopy. Patient has been instructed to contact the clinic with any concerns before the next appointment. Dr. Edwards has reviewed this note and agrees with this plan of care. This note was dictated using voice recognition software and make contain errors or omissions. All injections are used with Lidocaine, Bupivacaine and Depo Medrol. Occasionally urine drug screen is needed to verify patient's compliance with our office pain contract. This is ordered based off specific treatments related to chronic pain with the potential to abuse certain medications.
[2024-07-01 14:44] LABS: Basophils % 0.5 % (0.1-2.0); Eosinophils # 0.3 K/mm3 (0.0-0.4); Eosinophils % 4.8 % (0.1-12.0); Hematocrit 40.5 % (37.0-47.0); Lymphocytes # 1.9 K/mm3 (0.7-4.5); Mean Corpuscular HGB Conc 34.6 g/dL (31.8-35.4); Mean Corpuscular Hemoglobin 32.4 pg (27.0-31.2); Mean Corpuscular Volume 93.8 fl (81-99); Mean Platelet Volume 9.8 fl (7.4-10.4); Monocytes # 0.5 K/mm3 (0.1-1.0); Monocytes % 8.4 % (1.7-9.3); Neutrophils # 3.6 K/mm3 (1.8-7.8); Platelet Count 214 K/mm3 (142-424); Red Blood Count 4.32 M/mm3 (4.20-5.40); Red Cell Distribution Width 12.1 % (11.5-17.5); White Blood Count 6.4 K/mm3 (4.8-10.8)
[2024-07-01 15:02] LABS: Chloride 97 mmol/L (98-107); Potassium 4.4 mmoL/L (3.5-5.1); Sodium 130 mmol/L (136-145)
[2024-07-01 15:05] LABS: Alanine Aminotransferase 17 U/L (12-78); Alkaline Phosphatase 94 U/L (38-126); Anion Gap 6.4 mEq/L (5-15); Aspartate Amino Transferase 25 U/L (14-36); Bilirubin,Direct 0.2 mg/dl (0.0-0.4); Bilirubin,Indirect 0.2 mg/dL (0.0-0.9); Bilirubin,Total 0.4 mg/dl (0.2-1.3); Bilirubin,Unconjugated 0.3 mg/dL (0.0-1.1); Blood Urea Nitrogen 13 mg/dl (7-17); Calcium 8.8 mg/dl (8.4-10.2); Carbon Dioxide 31 mmol/L (22.0-30.0); Cholesterol 119 mg/dl (140-200); Creatinine Clearance Estimated 74 mL/min (50-200); Estimated Glomerular Filt Rate 73 ml/min (>60); GFR (African American) 89 ML/MIN (>60); Glucose 69 mg/dl (74-100); Total Protein,Serum 6.4 g/dl (6.3-8.2); Triglycerides 54 mg/dl (30-150); VLDL Cholesterol 11 mg/dL (0-40)
[2024-07-01 15:06] LABS: Chol/HDL Ratio 2.1 (1-3.5); HDL Cholesterol 58 mg/dl (40-60)
[2024-07-01 15:16] LABS: Direct LDL Cholesterol 44.74 mg/dL (100-129)
== END 2024-07-01 23:59 | disposition home or self-care (01) ==
PROVIDERS: Nurse Practitioner; PCP Nurse Practitioner Family; Visit Provider Nurse Practitioner Family
DX: M70.61 Trochanteric bursitis, right hip (principal); M70.62 Trochanteric bursitis, left hip; M25.551 Pain in right hip; M25.552 Pain in left hip; I25.10 Atherosclerotic heart disease of native coronary artery without angina pectoris; I50.32 Chronic diastolic (congestive) heart failure; R94.31 Abnormal electrocardiogram [ECG] [EKG]; E11.9 Type 2 diabetes mellitus without complications; I11.0 Hypertensive heart disease with heart failure; E78.2 Mixed hyperlipidemia; F17.210 Nicotine dependence, cigarettes, uncomplicated; Z73.89 Other problems related to life management difficulty; Z79.899 Other long term (current) drug therapy
CPT/HCPCS: 36415; 80048; 80061; 80076; 85025; 99212; G0463

== ENCOUNTER 2024-07-03 11:39 | Outpatient (CLI) | payer MEDICARE, SELFPAY ==
--- NOTE | 2024-07-03 | CA_ITS ---
APPROVED REPORT Exam: Pharmacologic Technologist: Mandi Celestin Ht: 5 ft 5 in Wt: 138 lbs BSA: 1.69 m2 HR: 69 bpm BP: 103/60 mmHg Medical History Medical History: HTN, Hyperlipidemia, Smoking Allergies: Alcohol, Promethazine, Paregoric Cardiac Risk Factors: HTN, Hyperlipidemia, FHX of CAD, Smoking Stress Test Details Test: Lexiscan HR Resting HR: 69 bpm Max Heart Rate (APMHR): 161 bpm Target HR (85% APMHR): 137 bpm Recovery HR: 72 bpm BP Resting BP: 103.0/60.0 mmHg Max BP: 107.0/69.0 mmHg Recovery BP: 107.0/69.0 mmHg ECG Stress ECG Conclusion Pt had soa, headache and chest pain Ekg non diagnos- Priscilla Electronically signed by : Louise Ramirez MD 07/07/2024 20:52:25
--- NOTE | 2024-07-03 11:40 | NM_ITS ---
APPROVED REPORT Exam: Nuclear Stress Test Indication: cad, hx mi, htn, diabetes, hyperlipidemia, tob use, fm hx, c.p., palpitations, abn ekg [facility]:Niesha Carolina, ARRT RT (R)(N)(M) Ht: 5 ft 5 in Wt: 137 lbs Bra Size: d HR: 69 bpm BP: 103/60 mmHg BSA: 1.68 m2 TID: 1.12 BMI: 22.7 History: cad, hx mi, htn, diabetes, hyperlipidemia, tob use, fm hx, c.p., palpitations, abn ekg Procedure: Patient received 0.4 mg of intravenous Lexiscan, resting heart rate 69 bpm, resting blood pressure 103/60 mmHg, with Lexiscan maximum heart rate achieved was 86 bpm which is % of the maximum predicted heart rate and blood pressure was 88/80 mmHg. With Lexiscan, patient denied any complaint of chest pain. Cardiac Stress and Resting SPECT Images: Cardiac Stress and Resting SPECT images were obtained using technetium 99m Myoview 31.6 mCi stress and 10.09 mCi at rest. Resting and stress imaging in supine and prone positions demonstrate a medium sized, mild, reversible perfusion defect in the septal LV wall. Gated imaging demonstrates normal global LV systolic function. There is mild hypokinesis of the basal septal LV wall. LVEF is calculated at 52%. Conclusion: Medium sized, mild, reversible perfusion defect in the septal LV wall. Findings are suggestive of reversible ischemia. Gated imaging demonstrates normal global LV systolic function. There is mild hypokinesis of the basal septal LV wall. LVEF is calculated at 52%. Electronically signed by : Louise Ramirez MD 07/07/2024 20:44:42
[2024-07-03] MEDS: SODIUM CHLORIDE 0.9% 10ML SYR (RAD ONLY) 10 ML IV ×2 (11:45→13:28)
[2024-07-03] MEDS: REGADENOSON 0.4MG/5ML SYRINGE 0.4 MG IV (13:27)
[2024-07-03] MEDS: ISOTOPE MYOVIEW (PER STUDY) 1 DOSE IV (13:27)
== END 2024-07-03 23:59 | disposition home or self-care (01) ==
LOC: RAD 11:40
PROVIDERS: PCP Nurse Practitioner Family; Visit Provider Nurse Practitioner
DX: I25.10 Atherosclerotic heart disease of native coronary artery without angina pectoris (principal); I11.0 Hypertensive heart disease with heart failure; I50.32 Chronic diastolic (congestive) heart failure; R94.31 Abnormal electrocardiogram [ECG] [EKG]; E11.9 Type 2 diabetes mellitus without complications; E78.2 Mixed hyperlipidemia
CPT/HCPCS: 78452; 93017; 93018; A9502; J2785

== ENCOUNTER 2024-07-25 08:17 | Day surgery (SDC) | payer MEDICARE, SELFPAY ==
[2024-07-25] VITALS (11 sets, daily range): BP systolic 96–123; BP diastolic 61–83; PULSE 69–91; RESP 17–18; O2SAT 92–95; BMI 22.4
--- NOTE | 2024-07-25 07:07 | IR_ITS ---
APPROVED REPORT Patient Location: Outpatient [employer]person [employer]: Quoc Payne, RT (R) PROCEDURES Left heart catheterization Left ventriculogram Selective coronary angiogram Intravascular ultrasound to the proximal dominant right coronary artery Drug-eluting stent deployment to the proximal and mid dominant right coronary in a contiguous manner INDICATION Abnormal Myoview, Angina pectoris, Severe to critical coronary disease with an MLA of 2.7 mm??? and a 4.4 mm diameter dominant vessel, Angiographic ambiguity, Informed consent was obtained prior to the procedure. COMPLICATIONS none Estimated Blood Loss: less than 10ml TECHNIQUE One percent lidocaine used to anesthetize the right anterior aspect of the wrist. The right radial artery was accessed via the Seldinger technique. A 6 Romanian sheath was placed in the right radial artery. 2.5 mg of Verapamil, 800 mcg of nitroglycerin, 1mg Lidocaine and 5000 U Heparin were given through the arterial sheath. The 6 Romanian JL 3 guide catheter was also used to perform left heart catheterization, left ventriculogram and selective coronary angiogram. At the end of the diagnostic angiogram therapeutic heparin was administered giving a therapeutic ACT and the guide catheter was placed in the right coronary followed by Choice PT extra-support wire. Intravascular ultrasound probe was advanced and became stuck in the proximal segment where an area measured 2.7 mm??? with heavy dense calcification and plaque. Primary stenting could not be performed using a 4 mm stent therefore 3 mm x 27 mm noncompliant balloon was deployed at 20 [place] in the proximal and mid right coronary artery. This allowed a 4 mm x 38 mm Rog[place] frontier stent to be deployed at 20 [place] in the midportion reducing the lesion. An additional 4 mm x 22 mm [place] frontier stent was placed proximal to the for stent yet still overlapping and deployed at 20 everette. The balloon was deployed at 20 [place]rette throughout the 38 mm stent to post dilate. BRE-3 flow was present before and after the procedure. After achieving excellent angiographic results the apparatus was removed the sheath was removed and hemostasis was achieved using TR banding patient was transferred to the postop putting in stable condition ANGIOGRAPHIC RESULTS The left main artery Has an ostial smooth 10 to 20% stenosis The left anterior descending artery Is a large-caliber vessel throughout its entire course and has a stent in the proximal segment which is widely patent free of in-stent restenosis with excellent proximal distal transitioning there is an additional mid vessel tandem 20 to 30% stenosis The circumflex artery Nondominant and has a stent in the proximal segment which is widely patent with minimal in-stent restenosis and excellent proximal distal transitioning The right coronary artery Massively large caliber and dominant vessel with proximal angiographic haziness with an angiographic stenosis of 40% which extends into the midportion. There is a distal eccentric 30% stenosis. 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 Plavix and aspirin 2. LDL less than 55 to achieve that high intensity statin 3. Avoidance of tobacco products 4. Risk factor modification 5. Cardiac rehabilitation Electronically signed by : Clayton Parish MD 07/25/2024 10:39:51
[2024-07-25 08:38] LABS: Basophils # 0.1 K/mm3 (0-0.2); Basophils % 0.6 % (0.1-2.0); Eosinophils # 0.6 K/mm3 (0.0-0.4); Eosinophils % 5.9 % (0.1-12.0); Hematocrit 43.9 % (37.0-47.0); Hemoglobin 15.3 g/dL (12.2-16.2); Lymphocytes # 1.9 K/mm3 (0.7-4.5); Lymphocytes % 19.1 % (10-50); Mean Corpuscular HGB Conc 34.9 g/dL (31.8-35.4); Mean Corpuscular Hemoglobin 32.4 pg (27.0-31.2); Mean Platelet Volume 9.3 fl (7.4-10.4); Monocytes # 0.6 K/mm3 (0.1-1.0); Monocytes % 6.2 % (1.7-9.3); Neutrophils # 6.6 K/mm3 (1.8-7.8); Neutrophils % 67.9 % (37.0-80.0); Platelet Count 240 K/mm3 (142-424); Red Blood Count 4.72 M/mm3 (4.20-5.40); White Blood Count 9.7 K/mm3 (4.8-10.8)
[2024-07-25 08:44] LABS: Chloride 101 mmol/L (98-107)
[2024-07-25 08:45] LABS: Sodium 136 mmol/L (136-145)
[2024-07-25 08:47] LABS: Blood Urea Nitrogen 10 mg/dl (7-17); Creatinine Clearance Estimated 65 mL/min (50-200); Estimated Glomerular Filt Rate 64 ml/min (>60); GFR (African American) 78 ML/MIN (>60)
[2024-07-25 08:48] LABS: Calcium 9.6 mg/dl (8.4-10.2); Carbon Dioxide 30 mmol/L (22.0-30.0); Glucose 90 mg/dl (74-100)
[2024-07-25] MEDS: diphenhydrAMINE 50MG/ML VIAL 50 MG IV (09:45)
[2024-07-25] MEDS: VERAPAMIL 2.5MG/ML 2ML VIAL 2.5 MG IV (09:45)
[2024-07-25] MEDS: NITROGLYCERIN 800MCG/8ML SYR (CATH LAB) 800 MCG IA (09:46)
[2024-07-25] MEDS: HEPARIN 1,000 UNITS/ML 10ML VIAL (CATH LAB) 10000 UNIT IV (09:46)
[2024-07-25] MEDS: 0.9 % SODIUM CHLORIDE 500 ML 25 ML IV (09:47)
[2024-07-25] MEDS: MIDAZOLAM HCL 1MG/ML 5ML VIAL 1 MG IV (09:47)
[2024-07-25] MEDS: HEPARIN 1,000 UNITS/500ML NS (CATH LAB) 3000 UNIT IV (09:47)
[2024-07-25] MEDS: FENTANYL 100MCG/2ML VIAL 50 MCG IV (09:48)
[2024-07-25] MEDS: CLOPIDOGREL 300MG TABLET 600 MG PO (10:35)
--- NOTE | 2024-07-25 12:25 | SUR.PHASEI ---
pt sitting up in bed eating lunch, family at bedside.
[2024-07-25] MEDS: IOPAMIDOL-370 (76%);100ML BOTTLE 95 ML IV (13:05)
[2024-07-25 14:53] LABS: CATHL Activated Clotting Time 287 SEC (74-125)
== END 2024-07-25 13:04 | disposition home or self-care (01) ==
PROVIDERS: PCP Nurse Practitioner Family; Visit Provider Internal Medicine
DX: I25.118 Atherosclerotic heart disease of native coronary artery with other forms of angina pectoris (principal); R93.1 Abnormal findings on diagnostic imaging of heart and coronary circulation; I11.0 Hypertensive heart disease with heart failure; E11.9 Type 2 diabetes mellitus without complications; F17.210 Nicotine dependence, cigarettes, uncomplicated; I50.32 Chronic diastolic (congestive) heart failure; Z88.8 Allergy status to other drugs, medicaments and biological substances; Z79.85 Long-term (current) use of injectable non-insulin antidiabetic drugs; Z79.899 Other long term (current) drug therapy; Z79.51 Long term (current) use of inhaled steroids; Z79.84 Long term (current) use of oral hypoglycemic drugs; Z82.49 Family history of ischemic heart disease and other diseases of the circulatory system; I77.1 Stricture of artery
CPT/HCPCS: 80048; 85025; 85347; 92928; 92978; 93458; 99152; 99153; C1725; C1769; C1874; C9600; J1200; J1644; J3010; Q9967

== ENCOUNTER 2024-07-28 13:31 | Outpatient (CLI) | payer MEDICARE, SELFPAY ==
[2024-07-28 14:00] LABS: Basophils # 0.1 K/mm3 (0-0.2); Basophils % 0.6 % (0.1-2.0); Eosinophils # 0.5 K/mm3 (0.0-0.4); Eosinophils % 6.6 % (0.1-12.0); Hematocrit 40.9 % (37.0-47.0); Hemoglobin 14.3 g/dL (12.2-16.2); Lymphocytes # 1.9 K/mm3 (0.7-4.5); Lymphocytes % 23.6 % (10-50); Mean Corpuscular Hemoglobin 32.5 pg (27.0-31.2); Mean Platelet Volume 9.1 fl (7.4-10.4); Monocytes # 0.5 K/mm3 (0.1-1.0); Neutrophils % 62.8 % (37.0-80.0); Platelet Count 211 K/mm3 (142-424); White Blood Count 7.9 K/mm3 (4.8-10.8)
[2024-07-28 15:11] LABS: Albumin Level 3.7 g/dl (3.5-5.0); Chloride 98 mmol/L (98-107); Potassium 4.4 mmoL/L (3.5-5.1); Sodium 129 mmol/L (136-145)
[2024-07-28 15:14] LABS: Alanine Aminotransferase 15 U/L (12-78); Albumin/Globulin Ratio 1.4 (1.1-1.8); Alkaline Phosphatase 105 U/L (38-126); Anion Gap 9.4 mEq/L (5-15); Aspartate Amino Transferase 23 U/L (14-36); Bilirubin,Total 0.4 mg/dl (0.2-1.3); Blood Urea Nitrogen 8 mg/dl (7-17); Calcium 8.8 mg/dl (8.4-10.2); Carbon Dioxide 26 mmol/L (22.0-30.0); Estimated Glomerular Filt Rate 73 ml/min (>60); GFR (African American) 89 ML/MIN (>60); Globulin 2.7 g/dL (1.3-3.2); Glucose 105 mg/dl (74-100); Total Protein,Serum 6.4 g/dl (6.3-8.2)
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
--- OUTSIDE RECORDS SUMMARY | 2024-08-01 20:00 | XMS_ITS ---
Author Organization Unknown TREATMENT PLAN [facility] Start Date Provider Encounter for Check-up [id number] [facility]
== END 2024-07-28 23:59 | disposition home or self-care (01) ==
LOC: LAB 13:32
PROVIDERS: PCP Nurse Practitioner Family; Visit Provider Internal Medicine
DX: I25.10 Atherosclerotic heart disease of native coronary artery without angina pectoris (principal)
CPT/HCPCS: 36415; 80053; 85025

== ENCOUNTER 2024-08-06 12:12 | Outpatient (CLI) | payer MEDICARE, SELFPAY ==
--- OUTSIDE RECORDS SUMMARY | 2024-08-06 12:14 | XMS_ITS | Data Portability ---
Author Organization RENETTA ABBEY Mohamud [place]O [place]ED[place] CLOSED Address [address] [facility] [place] [address] Care Team Providers Care Spinner Frame Name Role Phone KUSHAL HOLCOMB Primary Care Provider DAFNE EDWARDS Pain Management SHERI FINCH Trick [employer] Rider [phone] Assessment Encounter Date Assessment Date Assessment LastModified [...] By Organization Details Last Modified Time 06/22/2021 [id number] discussed ARITA's, Excellent Candidate States she is currently unemployed - I suggested she investigate her medicare coverage to see if there is a ARITA benefit to utilize. Provided her a copy of her hearing test today. [email or web address] Not available 06/22/2021 11:37:52 Reason for Referral None Reported. Results Created Date Observation Date Name Description Value Unit Range Abnormal Flag Note LastModifiedBy Organization Detail LastModifiedTime 03/08/20 21 03/08/2021 XR, lumbo sacra l spine , 2 or 3 view, bendi ng only [facility] [address] [facility] [place] [address] Patien t Name: REBECA ALFARO ON Patien t : 1964 Patien t [...] Curry MD on 2020 11:03 AM [email or web address] [facility] [address] [place] [address], [place], [address], 03/19/2021 15:54:33 03/09/20 21 10/02/2020 MRI, cervi cortney spine , w/o contr ast No observ ation record ed. BARCODE Not Available 2020 10:47:52 03/09/20 21 08/18/2020 MRI, lumba r spine , w/o contr ast No observ ation record ed. BARCODE Not Available 2020 10:47:52 05/11/19 22 05/11/2021 nerve condu ction study /EMG, upper extre mity (PROC ) No observ ation record ed. [email or web address] [facility] [address] [place], [address], 05/17/2021 11:07:32 06/26/19 22 06/22/2021 audio gram No observ ation record ed. BARCODE Not Available 2021 09:52:55 Result Notes None recorded. Procedures Surgical History Date Name Laterality Status Provider Name and Address Organization Details Recorded Time 06/23/19 Audiogram completed ELINA Perry, AUD [address] [place], [address], [facility] 06/22/2021 11:36:59 05/11/19 Electromyography (EMG) with Nerve Conduction Study (NCV) completed Buffy Jordan (Nicky) [facility] 05/11/2021 15:22:37 placement of stent in cardiac conduit completed Reba Szymanski [facility] 03/08/2021 09:25:42 Imaging Results Imaging Date Name Status LastModified by [facility] Details LastModified Time 03/08/2021 XR, lumbosacral spine, 2 or 3 view, bending only completed [email or web address] [facility] [address] [place] [address], [address], 03/19/2021 15:54:33 10/02/2020 MRI, cervical spine, w/o contrast completed [facility] Information not available 03/09/2021 10:47:52 08/18/2020 MRI, lumbar spine, w/o contrast completed [facility] Information not available 03/09/2021 10:47:52 05/11/2021 nerve conduction study/EMG, upper extremity (PROC) completed [email or web address] [facility] [address] [place], [address], 05/17/2021 11:07:32 06/22/2021 audiogram completed [facility] Information no t available 06/25/2021 09:52:55 Procedure Notes None recorded. Medical Equipment None Reported. Allergies Allergen ID Allergen Name Allergen Category Reaction Reaction Severity Criticality Documentation Date Start Date Code Code System Note Provider Name and Address Organization Details Recorded Time 761884 paregoric medicatio n Not available Not available Not available 03/18/20162011 74650 RxNorm Comme nt: Creat ed By: Ambar Good ti;Cr eated Date: 2011 3:04: 00 PM; Not Available [facility] 6 09:20:26 685122 Amrix medicatio n Not available Not available Not available 03/18/20162013 36274 5 RxNorm Comme nt: hallu cinat ions, lower ed bp;Cr eated By: Evon Schaeferdl e;Cre ated Date: 2013 4:14: 34 PM; Not Available [facility] 6 09:41:14 Medications Name Sig Start Date [...] Updated DateTime 03/08/2021 167.64 cm 33.9 kg/m2 09891.4 g 132 mm[Hg] 82 mm[Hg] Reba Nessa [facility] 09:29:26 Social History None recorded. Functional Status [...] Not available 09:25:20 Medical History Condition Response Diabetes Y Bleeding Disorder Y Osteoporosis/Osteopenia Y Heart Attack ([place]) Y Hypertension Y High Cholesterol Y Gynecological HistoryNo gynecological history recorded. Obstetrics History GPAL:G 0 P 0 0 0 0 Past Encounters Encounter ID Performer Location Encounter Start Date Encounter Closed Date Diagnosis/Indication Diagnosis SNOMED-CT Code Diagnosis ICD10 Code Diagnosis Note [id number] SHERI WOLFF MD [facility] [address] [place] [address] 03/08/2021 08:48:53 03/08/2021 13:34:13 Low back pain 705519724 M54.50 Time spent reviewing images, discussing the diagnosis and coordinati ng care: 30min Neck pain 50057474 M54.2 [id number] Buffy AdamsAnnaAnn Jordan NEUROLOGY [address] [place] [address] 05/11/2021 13:35:29 05/11/2021 15:48:46 Bilateral carpal tunnel syndrome 5761504392 6452833 G56.03 Neck pain 82027688 M54.2 [id number] ELINA BEAVERS, [facility] CLOSED [address] [place] [address] 06/22/2021 11:04:55 06/22/2021 14:16:01 Sensorineural hearing loss of bilateral ears 625554469 H90.3 Bilateral tinnitus 38403 83510 102 H93.13 Impairment of balance 38 4673643 R26.89 Health Concerns Section Related Observation LastModified by Organization Detai ls LastModified Time None Recorded Concern Status LastModified by Organization Details LastModified Time None Recorded Advance Directives Directive None Recorded Payers Encounter Date Sequence Insurance Name Policy Number Policy Lara Covered Member ID Lara Member ID Guarantor Name 03/08/2021 1 [employer] (MEDICARE REPLACEMENT/ ADVANTAGE - PPO) Rebeca Bassett [id number] Rebeca Bassett 03/08/2021 2 [place]/TRADITIO NAL Rebeca Bassett [id number] Rebeca Bassett 05/11/2021 1 [employer] (MEDICARE REPLACEMENT/ ADVANTAGE - PPO) Rebeca Bassett [id number] Rebeca Bassett 05/11/2021 2 [place]/TRADITIO NAL Rebeca Bassett [id number] Rebeca Bassett 06/22/2021 1 [employer] (MEDICARE REPLACEMENT/ ADVANTAGE - PPO) Rebeca Bassett [id number] Rebeca Bassett 06/22/2021 2 [place]/TRADITIO NAL Rebeca Bassett [id number] Rebeca Bassett Notes Date Note Type Note [...] did 6 weeks of physical therapy at [facility]. She has trialed a TENS unit which [...] transferring her care to Dr. Xavier, with [facility]. SHERI WOLFF MD [facility] [place], [address], [facility] 03/08/2021 09:57:17 OBGyn Episode No OBEpisode recorded.
[2024-08-06 13:37] LABS: Anion Gap 12.9 mEq/L (5-15); Blood Urea Nitrogen 5 mg/dl (7-17); Calcium 9.1 mg/dl (8.4-10.2); Carbon Dioxide 29 mmol/L (22.0-30.0); Chloride 97 mmol/L (98-107); Estimated Glomerular Filt Rate 86 ml/min (>60); GFR (African American) 104 ML/MIN (>60); Potassium 4.9 mmoL/L (3.5-5.1); Sodium 134 mmol/L (136-145)
[2024-08-06 13:40] LABS: Glucose 46 mg/dl (74-100)
== END 2024-08-06 23:59 | disposition home or self-care (01) ==
LOC: LAB 12:12
PROVIDERS: PCP Nurse Practitioner Family; Visit Provider Nurse Practitioner Family
DX: I25.10 Atherosclerotic heart disease of native coronary artery without angina pectoris (principal); E78.2 Mixed hyperlipidemia
CPT/HCPCS: 36415; 80048

== ENCOUNTER 2024-08-08 12:53 | Outpatient (RCR) | payer MEDICARE, MEDICAID, SELFPAY | END 2024-11-07 08:00 | disposition home or self-care (01) | LOC: CR 12:53 | PROVIDERS: Visit Provider Internal Medicine | DX: Z48.812 Encounter for surgical aftercare following surgery on the circulatory system (principal); Z98.61 Coronary angioplasty status | CPT/HCPCS: 93798 ==

== ENCOUNTER 2024-10-10 13:58 | Outpatient (CLI) | payer MEDICARE, SELFPAY ==
[2024-10-10 14:05] VITALS: BP 91/56; PULSE 85; RESP 16; TEMP 37; O2SAT 95
[2024-10-10] MEDS: DENOSUMAB 60 MG/ML SYRINGE SUBCUT (14:05)
--- OUTSIDE RECORDS SUMMARY | 2024-10-10 14:18 | XMS_ITS | Data Portability ---
Author Organization [facility] Address [address] [place] [address] Care Team Providers Care Commodity Trader Name Role Phone KUSHAL HOLCOMB Primary Care Provider KUSHAL HOLCOMB Referring Provider [phone] Assessment Encounter Date Assessment Date Assessment LastModified by Organization Details LastModified Time 04/29/2022 04/29/2022 Ms. Bassett is a pleasant obese T7-year-old female we see for follow-up today with multiple pain complaints. Recently her primary complaint is been of low back pain related to facet arthropathy. She follows up after a bilateral L3-5 RFA completed on 04/01/2022 not quite a month ago. She reports complete resolution of her pain is very pleased in regard to the results. She also has neck pain that was treated in similar fashion with radiofrequency ablation with good benefit. She also has multijoint pain. There is neuropathic pain particular in her feet. She does plan on seeing a orthopedic surgeon about her feet this coming week. For complaints we provide her with hydrocodone as well as gabapentin. We did increase the gabapentin to 600 mg 3 times daily at the last visit which she has found beneficial. She is not reporting adverse side effects with either medication. Currently she feels her pain is well controlled on the current regimen in conjunction with the interventional treatment. She is not reporting change in her general health since we seen her last. Anticoagulants: Aspirin Non-interventional Tx: Has completed > 6 weeks of physical therapy and/or directed home exercise program. Interventional Tx: 04/01/2022 RFA Lumbar Bilateral L3-L5; 100% Pain relief ongoing 02/25/2022 #2 LMBB Bilateral L3-L5; 100% pain relief 02/04/2022 #1 Bilateral L3-5 MBB 100% both sides x 1 week 10/22/2021 RFA Cervical right C3-C5; 100% pain relief ongoing 09/17/2021 #2 CMBB Right C3-C5; 100% pain relief 08/30/2021 #1 CMBB Right C3-C5; 100% pain relief 07/02/2021 RFA Cervical Left C3-C5; 100% pain relief 06/18/2021 #2 CMBB Left C3-C5; 95% pain relief 04/09/2021 #1 CMBB Left C3-C5; 95% pain relief Cervical epidural steroid injections Lumbar epidural steroid injections Imaging/Studies: Reportedly with an MRI demonstrating cervical spinal stenosis, not available today Lumbar MRI 07/2020 L1-L3 WNL L3-4 disc bulge with facet and ligamentum flavum hypertrophy, mild bilateral recess and foraminal narrowing L4-5 3 mm anterolisthesis of L4 with flavum hypertrophy and moderate bilateral foraminal narrowing with canal stenosis, left facet joint with fluid L5-S1 disc bulge with facet and flavum hypertrophy, mild left-sided foraminal narrowing For pain currently she peers to alternate between tramadol and hydrocodone in addition to gabapentin based on her Dagoberto which was reviewed today. Drug screen sent for confirmation on 02/23/2022 was appropriately positive for hydrocodone, metabolites and gabapentin as expected. She has had previous inappropriate urine drug screens in 2020. A urine drug screen was obtained today 04/29/2022 and will be sent for qualitative and quantitative analysis.03/24/2022 . ORT by self reporting is 0. Plan: Ms. Bassett is a pleasant obese 57-year-old female with multiple pain complaints including neuropathic pain in her feet. We provide her with gabapentin 600 mg 3 times daily as well as hydrocodone 5/325 twice daily as needed. We will provide new prescriptions today. We will see her back in 60 days for further evaluation and treatment planning. No other medications were provided today. Of additional note she does have a small prescription for lorazepam which she takes very sparingly particularly around holidays as she has lost her son in these times of the year are particularly difficult for her. She does note that she should not take the opiates at the same time or same day as the benzodiazepines. [email or web address] Not available 04/29/2022 09:54:33 06/27/2022 06/27/2022 Ms. Bassett is a pleasant obese 57-year-old female we see for follow-up. She has multiple pain generators primary continues to be of back pain related to facet arthropathy. She has undergone RFA in February and continues to get benefit from this. She is also had RFA of the cervical spine in October 2021 and continues to get some benefit from this as well. She does not feel need to repeat the ablation at this time. She does have some neuropathic pain in her feet and has seen orthopedic surgeon who I believe has provided her with injections with mixed results. We do provide her with hydrocodone and gabapentin which she typically finds beneficial. She is not reporting adverse side effects with the medication. She feels her current regimen in conjunction with interventional treatment allows her to carry her ADLs and other functions throughout the day without severe pain. She reports her pain is stable remains unchanged since last visit. She is not reporting change in her general health since we have seen her last. Anticoagulants: Aspirin Non-interventional Tx: Has completed > 6 weeks of physical therapy and/or directed home exercise program. Interventional Tx: 04/01/2022 RFA Lumbar Bilateral L3-L5; 100% Pain relief ongoing 02/25/2022 #2 LMBB Bilateral L3-L5; 100% pain relief 02/04/2022 #1 Bilateral L3-5 MBB 100% both sides x 1 week 10/22/2021 RFA Cervical right C3-C5; 100% pain relief ongoing 09/17/2021 #2 CMBB Right C3-C5; 100% pain relief 08/30/2021 #1 CMBB Right C3-C5; 100% pain relief 07/02/2021 RFA Cervical Left C3-C5; 100% pain relief 06/18/2021 #2 CMBB Left C3-C5; 95% pain relief 04/09/2021 #1 CMBB Left C3-C5; 95% pain relief Cervical epidural steroid injections Lumbar epidural steroid injections Imaging/Studies: Reportedly with an MRI demonstrating cervical spinal stenosis, not available today Lumbar MRI 07/2020 L1-L3 WNL L3-4 disc bulge with facet and ligamentum flavum hypertrophy, mild bilateral recess and foraminal narrowing L4-5 3 mm anterolisthesis of L4 with flavum hypertrophy and moderate bilateral foraminal narrowing with canal stenosis, left facet joint with fluid L5-S1 disc bulge with facet and flavum hypertrophy, mild left-sided foraminal narrowing For pain currently she peers to alternate between tramadol and hydrocodone in addition to gabapentin based on her Dagoberto which was reviewed today. Urine drug screen sent for confirmation on 04/29/2022 was positive for hydrocodone without metabolites as well as gabapentin as expected. She has had previous inappropriate urine drug screens in 2020. No urine drug screen was obtained today 06/27/2022. ORT by self reporting is 0. Plan: Ms. Bassett is a pleasant obese 57-year-old female we see with multiple plain issues primary continues to be back pain though she has undergone a bilateral L3-5 RFA over 2 months ago and does continue to get some benefit from this. We do provide her with gabapentin 600 mg 3 times daily as well as hydrocodone 5/325 twice daily as needed. We will provide new prescriptions today. Her PCP may take this medication over in the near future as his office is closer to her home. For now we will plan on seeing her back in 60 days for further evaluation and treatment planning. If she does not need this appointment she will cancel it. Of additional note she does have a small prescription for lorazepam which she takes very sparingly particularly around holidays as she has lost her son in these times of the year are particularly difficult for her. She does note that she should not take the opiates at the same time or same day as the benzodiazepines. [email or web address] Not available 06/27/2022 09:12:32 02/24/2023 02/24/2023 Interval history : Ms. Bassett is a pleasant obese 57-year-old female with multiple pain complaints. We have not seen her in several months. She did undergo a therapeutic bilateral L3-5 RFA on 11/02/2022 almost 4 months ago. She continues to report essentially complete resolution of her back pain after this. She is also undergone a right C3-5 RFA over a year ago and continues to derive benefit from this. Previously we have provided her with hydrocodone and gabapentin. This has been taken over by her PCP. She is also been given benzodiazepines. I explained that controlled substances prescribed by another provider without formally discharging herself is a violation of her contract. For this reason and the fact that she is on benzodiazepines we cannot continue the controlled substances and she appears to understand. He does report some issues with her colon that is being worked up by gastroenterology. History: Ms. Bassett is a pleasant obese female with multiple pain generators. This includes multijoint however her primary complaint is been of axial neck and low back pain. She has undergone RFA's for the right cervical spine as well as the bilateral L3-5 with notable benefit. He has not been fairly lasting in the past. She does have some neuropathic pain in her feet and has seen orthopedic surgeon who I believe has provided her with injections with mixed results. We have provided her with hydrocodone and gabapentin in the past with benefit. Currently we are not providing any medications for this patient. Anticoagulants: Aspirin Non-interventional Tx: Has completed > 6 weeks of physical therapy and/or directed home exercise program. Interventional Tx: 11/02/2022 (thera) RFA Lumbar Bilateral L3-L5 w/sed; 100% pain relief ongoing (02/24/2023) 04/01/2022 RFA Lumbar Bilateral L3-L5; 100% Pain relief ongoing 02/25/2022 #2 LMBB Bilateral L3-L5; 100% pain relief 02/04/2022 #1 Bilateral L3-5 MBB 100% both sides x 1 week 10/22/2021 RFA Cervical right C3-C5; 100% pain relief ongoing 09/17/2021 #2 CMBB Right C3-C5; 100% pain relief 08/30/2021 #1 CMBB Right C3-C5; 100% pain relief 07/02/2021 RFA Cervical Left C3-C5; 100% pain relief 06/18/2021 #2 CMBB Left C3-C5; 95% pain relief 04/09/2021 #1 CMBB Left C3-C5; 95% pain relief Cervical epidural steroid injections Lumbar epidural steroid injections Imaging/Studies: Reportedly with an MRI demonstrating cervical spinal stenosis, not available today Lumbar MRI 07/2020 L1-L3 WNL L3-4 disc bulge with facet and ligamentum flavum hypertrophy, mild bilateral recess and foraminal narrowing L4-5 3 mm anterolisthesis of L4 with flavum hypertrophy and moderate bilateral foraminal narrowing with canal stenosis, left facet joint with fluid L5-S1 disc bulge with facet and flavum hypertrophy, mild left-sided foraminal narrowing For pain currently she peers to alternate between tramadol and hydrocodone in addition to gabapentin based on her Dagoberto which was reviewed today. Urine drug screen sent for confirmation on 04/29/2022 was positive for hydrocodone without metabolites as well as gabapentin as expected. She has had previous inappropriate urine drug screens in 2020. No urine drug screen was obtained today 06/27/2022. ORT by self reporting is 0. Plan: Ms. Bassett is a pleasant obese 57-year-old female with essentially complete resolution of her back pain after a bilateral L3-5 RFA almost 4 months ago. She continues to derive benefit from her cervical ablation over a year ago. This office does not provide any medication for this patient currently. She will follow-up on a as needed basis. No medications were provided today. Of additional note she does have a small prescription for lorazepam which she takes very sparingly particularly around holidays as she has lost her son in these times of the year are particularly difficult for her. She does note that she should not take the opiates at the same time or same day as the benzodiazepines. [email or web address] Not available 02/24/2023 09:27:22 Plan of Treatment Reminders Order Date Submit Date Provider Last Modified By Organization Details Last Modified Time Details Appointments None recorded. Lab drug screen, urine - Qualitative LCMS Screen Panel 2022 023 [facility], [facility], [address] [place] [address], [id number], 3 17:59:33 Referral None recorded. Procedures None recorded. Surgeries None recorded. Imaging None recorded. Medication Orders gabapentin 600 mg tablet 2022 023 [facility], [address] [place] [address], [facility] [address], [address], 3 09:20:54 hydrocodone 5 mg-acetamin ophen 325 mg tablet 2022 023 [facility], [facility], [facility] [address], [place], [address], 3 09:20:55 hydrocodone 5 mg-acetamin ophen 325 mg tablet 2022 023 [facility], [facility], [facility] [address], [address], 3 09:41:15 gabapentin 600 mg tablet 2022 023 [facility], [address] [place] [address], [address], [place], [address], 3 09:54:39 hydrocodone 5 mg-acetamin ophen 325 mg tablet 2022 023 [facility], [address] [place] [address], [facility] [address], [place], [address], 3 09:54:41 hydrocodone 5 mg-acetamin ophen 325 mg tablet 2022 023 [facility], [address] [place] [address], [facility], [place], [address], 3 10:04:49 Patient TargetsNo targets recorded. Patient Instructions Encounter Date Encounter Id Patient Instructions Last Modified By Organization Details Last Modified Time 06/27/2022 [id number] high blood pressure: care instructions [email or web address] Not available 06/27/2022 11:23:14 advance directives: care instructions [email or web address] Not available 06/27/2022 11:23:14 depression and chronic disease: care instructions [email or web address] Not available 06/27/2022 11:23:14 safe use of opioid pain medicine: care instructions [email or web address] Not available 06/27/2022 11:23:14 11/02/2022 [id number] cervical spondylosis: care instructions Not available 11/02/2022 10:18:37 neck arthritis: exercises Not available 11/02/2022 10:18:37 Reason for Referral None Reported. Results Created Date Observation Date Name Description Value Unit Range Abnormal Flag Note LastModifiedBy Organization Detail LastModifiedTime Result Notes None recorded. Problems Name Problem SNOMED Code Status Onset Date Resolution Date Notes Provider Name and Address Organization Details Recorded Time Cervical spondylosis without myelopathy 352147275 Active 2020 TSERING ZIMMERMAN MD [address] [place] [address], [phone] , [facility] 13:50:20 Lumbar spondylosis 003696235 Active 2021 Crystal Trimble null, [place] - [facility] 2 15:07:46 Cervical radiculitis 47426587 Active 2022 tam hamilton null, [place] - [facility] 3 13:11:35 Overweight 092412023 Active 2022 tam hamilton null, [place] - [facility] 3 12:23:54 Cervical spondylosis 325757679 Active 2022 tam hamilton null, [place] - [facility] 3 12:24:03 Problem Notes None recorded. Procedures Surgical History Date Name Laterality Status Provider Name and Address Organization Details Recorded Time 11/03/19 23 Cervical RFA: Posterior (2 Level Unilateral) completed TSERING ZIMMERMAN MD [address] [place] [address], [phone], [place] [facility] 11/02/2022 10:18:28 04/01/20 22 Lumbar RFA (2 Level Bilateral) completed TSERING ZIMMERMAN MD [address] [place] [address], [phone], [place] [facility] 04/01/2022 15:14:29 02/26/20 22 Diagnostic Lumbar MBB (2 Level Bilateral) completed TSERING ZIMMERMAN MD [address] [place] [address], [phone], [employer] [facility] 02/27/2022 22:17:56 02/05/20 22 Therapeutic Lumbar MBB (2 Level Bilateral) completed TSERING ZIMMERMAN MD [address] [place] [address], [phone], [place] [facility] 02/07/2022 14:21:08 10/23/19 22 Cervical RFA: Posterior (2 Level Unilateral) completed TSERING ZIMMERMAN MD [address] [place] [address], [phone], [place] [facility] 10/22/2021 16:10:42 09/18/19 22 Diagnostic Cervical MBB: Posterior (2 Level Unilateral) completed TSERING ZIMMERMAN MD [address] [place] [address], [phone], [facility] 09/21/2021 08:32:55 08/31/19 22 Diagnostic Cervical MBB: Posterior (2 Level Unilateral) completed TSERING ZIMMERMAN MD [address] [place] [address], [phone], [facility] 08/31/2021 21:24:06 07/03/19 22 Cervical RFA: Posterior (2 Level Unilateral) completed TSERING ZIMMERMAN MD [address] [place] [address], [phone], [facility] 07/03/2021 07:32:52 06/18/19 22 Diagnostic Cervical MBB: Posterior (2 Level Unilateral) completed TSERING ZIMMERMAN MD [address] [place] [address], [phone], [facility] 06/18/2021 14:43:47 04/09/20 21 Diagnostic Cervical MBB: Posterior (2 Level Unilateral) completed TSEIRNG ZIMMERMAN MD [address] [place] [address], [phone], [facility] 04/09/2021 16:58:09 procedure on heart completed Darek Chon [facility] 03/31/2021 13:06:31 Imaging Results None recorded. Procedure Notes None recorded. Medical Equipment None Reported. Allergies Allergen ID Allergen Name Allergen Category Reaction Reaction Severity Criticality Documentation Date Start Date Code Code System Note Provider Name and Address Organization Details Recorded Time [id number] Phenergan medicatio n Not available Not available Not available 03/31/2021 24071 8 RxNorm Darek Chon null, [facility] 12:57:52 172928 paregoric medicatio n Not available Not available Not available 03/31/2021 [id number] RxNorm Darek Chon null, [facility] 1 12:58:31 [id number] ethanol environme nt,medica tion hives severe high 03/31/20221991 448 RxNorm Dara Kechi null, [facility] 12:13:47 Medications Name Sig Start Date Stop Date Status Note LastModified by Organization Details LastModified Time losartan 50 mg tablet active Not Available Not Available No t Available cyclobenzap rine 10 mg tablet active Not Available Not Available Not Available amoxicillin 500 mg capsule 12/31 completed Not Available Not Available Not Available atorvastati n 40 mg tablet Take 1 tablet every day by oral route. active Not Available Not Available No t Available carvedilol 25 mg tablet active Not Available Not Available Not Available gabapentin 600 mg tablet TAKE 1 TABLET BY MOUTH THREE TIMES DAILY NEEDED active Not Available Not Available No t Available carvedilol 12.5 mg tablet Take 1 tablet twice a day by oral route. 03/31 completed Not Available Not Available Not Available trazodone 50 mg tablet active Not Available Not Available Not Available cetirizine 10 mg tablet Take 1 tablet every day by oral route. 06/21 completed Not Available Not Available Not Available azithromyci n 250 mg tablet TAKE 2 TABLETS NOW THEN 1 TABLET DAILY FOR 5 DAYS 12/31 completed Not Available Not Available Not Available tizanidine 4 mg tablet Take 1 tablet every 6 hours by oral route. 03/31 completed Not Available Not Available Not Available hydrocodone 5 mg-acetamin ophen 325 mg tablet TAKE 1 TABLET BY MOUTH TWICE DAILY DIRECTED active Not Available Not Available No t Available ondansetron HCl 4 mg tablet active Not Available Not Available Not Available omeprazole 40 mg capsule,del ayed release active Not Available Not Available Not Available tramadol 50 mg tablet Take 1 tablet every 6 hours by oral route. 03/31 completed Not Available Not Available Not Available pramipexole 0.5 mg tablet active Not Available Not Available Not Available potassium chloride ER 20 mEq tablet,exte nded release(par t/cryst) active Not Available Not Available Not Available famotidine 20 mg tablet Take 1 tablet twice a day by oral route. active Not Available Not Available No t Available lorazepam 0.5 mg tablet Take 1 tablet twice a day by oral route as needed. active Not Available Not Available No t Available furosemide 80 mg tablet Take 1 tablet every day by oral route. active Not Available Not Available No t Available dicyclomine 20 mg tablet TAKE ONE TABLET BY MOUTH 4 TIMES A DAY MAY CAUSE DROWSINES S active Not Available Not Available No t Available ondansetron [address] 2 tablets twice a day by transling ual route. 04/26 completed Not Available Not Available Not Available meclizine 25 mg tablet Take 1 tablet 3 times a day by oral route. 04/26 completed Not Available Not Available Not Available cephalexin 500 mg capsule active Not Available Not Available Not Available paroxetine 20 mg tablet active Not Available Not Available Not Available buspirone 10 mg tablet 03/31 completed Not Available Not Available Not Available nitroglycer in 0.4 mg sublingual tablet active Not Available Not Available Not Available pramipexole 0.25 mg tablet Take 1 tablet 3 times a day by oral route. 04/26 completed Not Available Not Available Not Available gabapentin 300 mg capsule Take 1 capsule 3 times a day by oral route for 30 days. 03/31 completed Not Available Not Available Not Available sertraline 25 mg tablet Take 1 tablet every day by oral route. 04/26 completed Not Available Not Available Not Available lidocaine HCl 2 % mucosal solution active Not Available Not Available Not Available aspirin 81 mg chewable tablet Chew 1 tablet every day by oral route. active Not Available Not Available No t Available levofloxaci n 500 mg tablet 03/31 completed Not Available Not Available Not Available methylpredn isolone 4 mg tablets in a dose pack 03/31 completed Not Available Not Available Not Available albuterol sulfate HFA 90 mcg/actuati on aerosol inhaler --SHAKE WELL-- AND INHALE 2 PUFFS EVERY 4 TO 6 HOURS NEEDED FOR BREATHING active Not Available Not Available No t Available paroxetine 40 mg tablet active Not Available Not Available Not Available ondansetron 4 mg disintegrat ing tablet active Not Available Not Available N ot Available fluoxetine 20 mg capsule active Not Available Not Available Not Available fluticasone propionate 50 mcg/actuati on nasal spray,suspe nsion active Not Available Not Available Not Available spironolact one 50 mg tablet Take 1 tablet every day by oral route. active Not Available Not Available No t Available metoclopram shweta 10 mg tablet active Not Available Not Available Not Available buspirone 15 mg tablet active Not Available Not Available Not Available chlorhexidi ne gluconate 0.12 % mouthwash 03/31 completed Not Available Not Available Not Available biotin active Not Available Not Availa ble Not Available ranolazine ER 500 mg tablet,exte nded release,12 hr active Not Available Not Available Not Available FeroSul 325 mg (65 mg iron) tablet Take 1 tablet every day by oral route. 04/26 completed Not Available Not Available Not Available Novofine 32 32 gauge x 1/4 needle active Not Available Not Available Not Available Myrbetriq 25 mg tablet,exte nded release active Not Available Not Available Not Available + DHA 28 mg iron-800 mcg-200 mg oral pack Take by oral route. 04/26 completed Not Available Not Available Not Available Victoza 2-Leonard 0.6 mg/0.1 mL (18 mg/3 mL) subcutaneou s pen injector INJECT 1.2 MG UNDER THE SKIN DAILY DIRECTED --REFRIGE RATE-- 08/02 completed Not Available Not Available Not Available NovoFine Plus 32 gauge x 1/6 needle 04/26 completed Not Available Not Available Not Available Ozempic 0.25 mg or 0.5 mg (2 mg/1.5 mL) subcutaneou s pen injector Inject 0.5 mg every week by subcutane ous route as directed for 30 days. active Not Available Not Available No t Available Ozempic 1 mg/dose (4 mg/3 mL) subcutaneou s pen injector active Not Available Not Available Not Available Clenpiq 10 mg-3.5 gram-12 gram/175 mL oral solution active Not Available Not Available Not Available Vitals Date Recorded Body height Body mass index (BMI) Body weight Heart rate Oxygen saturation Oxygen saturation in Arterial blood by Pulse oximetry Systolic blood pressure Diastolic blood pressure Provider Name and Address Organization Details Last Updated DateTime 3 165.1 cm 35.3 kg/m2 94372.5 8 g 74 /min 96 % 96 % 121 mm[Hg] 83 mm[Hg] tam hamilton [facility] 3 09:35:24 Date Recorded Body height Body mass index (BMI) Body weight Oxygen saturation Oxygen saturation in Arterial blood by Pulse oximetry Heart rate Systolic blood pressure Diastolic blood pressure Provider Name and Address Organization Details Last Updated DateTime 3 165.1 cm 35.3 kg/m2 50910.5 8 g 97 % 97 % 78 /min 104 mm[Hg] 78 mm[Hg] tam hamilton [facility] 3 08:58:41 Date Recorded Body height Provider Name an d Address Organization Details Last Updated DateTime 11/02/2022 165.1 cm Iqra Brandon [facility] 11/02/2022 09:04:59 Date Recorded Body height Body mass index (BMI) Body weight Heart rate Oxygen saturation Oxygen saturation in Arterial blood by Pulse oximetry Systolic blood pressure Diastolic blood pressure Provider Name and Address Organization Details Last Updated DateTime 3 165.1 cm 35.1 kg/m2 99339.9 9 g 74 /min 95 % 95 % 94 mm[Hg] 60 mm[Hg] seb bermeo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
--- OUTSIDE RECORDS SUMMARY | 2024-10-10 14:18 | XMS_ITS | Clinical Summary ---
Author Organization Healthcare Address [address] [place] [address] Care Team Providers Care Evaluation Specialist Name Role Phone Saqib Ivey MD Primary Care Provider [phone] Immunizations Immunization Administration Dates Next Due Pneumococcal Conjugate PCV 13 01/12/2016 Family History Medical History Relation Name Comments Bleeding disorder Father Cardiac disorder Father Hypertension Father Bleeding disorder Mother Cardiac disorder Mother Hypertension Mother Other cancer Mother Bleeding disorder Other 1 Cardiac disorder Other 2 Hypertension Other 3 Other cancer Other 4 Cardiac disorder Sibling 1 Depression Sibling 2 Diabetes Sibling 3 Hypertension Sibling 4 Relation Name Status Comments Father Mother Other 1 Other 2 Other 3 Other 4 Sibling 1 Sibling 2 Sibling 3 Sibling 4 Social History Tobacco Use Types Packs/Day Years Used Date Smoking Tobacco: Former Alcohol Use Standard Drinks/Week Comments No 0 (1 standard drink = 0.6 oz pur e alcohol) Comments Unknown Sex and Gender Information Value Date Recorded Sex Assigned at Not on file Legal Sex Female 7:55 PM EDT Gender Identity Not on file Sexual Orientation Not on file Last Filed Vital Signs Vital Sign Reading Time Taken Comments Blood Pressure 94/63 09/20/2017 11:29 AM EDT Pulse 82 09/20/2017 11:29 AM EDT Temperature 36.6 C (97.8 F) 09/20/2017 11:29 AM EDT Respiratory Rate - - Oxygen Saturation - - Inhaled Oxygen Concentration - - Weight 97.8 kg (215 lb 9.8 oz) 09/20/2017 11:29 AM EDT Height 166.4 cm (5' 5.5 ) 09/20/2017 11:29 AM ED T Body Mass Index 35.33 09/20/2017 11:29 AM EDT Plan of Treatment Health Maintenance Due Date Last Done Comments UKY-Depression Screening 1965 UKY-/Child/Adol SDOH Screenings 1965 UKY- SDOH Screenings 1983 UKY-Adult SDOH Screenings 1983 UKY-DTaP,Tdap,and Td Vaccine s (1 - Tdap) 1984 UKY-Hepatitis B Vaccines (1 of 3 - 19+ 3-dose series) 1984 UKY-Pap Smear 1986 UKY-Cervical Cancer Screening 1995 UKY-HPV/Cotest 1995 CT Colonography 2010 Colonoscopy 2010 FIT-DNA 2010 FIT 2010 FOBT 2010 Sigmoidoscopy 2010 UKY-Colorectal Cancer Screening 2010 UKY-Pneumococcal Vaccine: 50 + Years (2 of 2 - PPSV23) 01/11/2017 01/12/2016 UKY-Zoster Vaccines (2 of 2) 03/25/2020 01/29/2020 [id number] Vaccine (3 - 2023- season) 2023 08/05/2020, 07/08/2020 UKY-Influenza Vaccine (Seaso n Ended) 2024 02/06/2020, 03/03/2017 HPV Vaccines Aged Out No longer eligi ble based on patient's age to complete this topic UKY-HIB Vaccines Aged Out No longer e ligible based on patient's age to complete this topic UKY-Hepatitis A Vaccines Aged Out No longer eligible based on patient's age to complete this topic UKY-IPV Vaccines Aged Out No longer e ligible based on patient's age to complete this topic UKY-Rotavirus Vaccines Aged Out No lo nger eligible based on patient's age to complete this topic Care Teams Evaluation Specialist Relationship Specialty Start Date End Date Saqib Ivey MD [address] [place] [address] [place] [address] PCP - General 09/04/20
--- OUTSIDE RECORDS SUMMARY | 2024-10-10 14:18 | XMS_ITS | Data Portability ---
Author Organization [facility] Mohamud [place] CLOSED Address [address] [facility] [address] [place] [address] Care Team Providers Care Plant Maintenance Supervisor Name Role Phone KUSHAL HOLCOMB Primary Care Provider [phone] DAFNE NOLEN Pain Management SHERI FINCH Lipstick Molder Assessment Encounter Date Assessment Date Assessment LastModified [...] By Organization Details Last Modified Time 06/22/2021 [id number] discussed ARITA's, Excellent Candidate States she is currently unemployed - I suggested she investigate her medicare coverage to see if there is a ARITA benefit to utilize. Provided her a copy of her hearing test today. [email or web address] Not available 06/22/2021 11:37:52 Reason for Referral None Reported. Results Created Date Observation Date Name Description Value Unit Range Abnormal Flag Note LastModifiedBy Organization Detail LastModifiedTime 03/08/20 21 03/08/2021 XR, lumbo sacra l spine , 2 or 3 view, bendi ng only [facility] [address] [place] [address] Patien t Name: REBECA ALFARO ON Patien [...] Curry MD on 2020 11:03 AM [email or web address] [facility] Radiology [facility] [address] [place] [address], [place], [address], 03/19/2021 15:54:33 03/09/20 21 10/02/2020 MRI, cervi cortney spine , w/o contr ast No observ ation record ed. BARCODE Not Available 2020 10:47:52 03/09/20 21 08/18/2020 MRI, lumba r spine , w/o contr ast No observ ation record ed. BARCODE Not Available 2020 10:47:52 05/11/19 22 05/11/2021 nerve condu ction study /EMG, upper extre mity (PROC ) No observ ation record ed. [email or web address] Neurology Sb [address] [place] [address], [phone], 05/17/2021 11:07:32 06/26/19 22 06/22/2021 audio gram No observ ation record ed. BARCODE Not Available 2021 09:52:55 Result Notes Documentation Provider Name and Address Organization Details Recorded Time Xr, Lumbosacral Spine, 2 Or 3 View, Bending Only : [address] [address] Patient Name: REBECA BASSETT Patient : 1965 Patient Ordering Provider: SHERI WOLFF EXAM DATE: 03/08/2021 EXAM: XR LUMBAR SPINE FLEX/EXT ONLY CLINICAL INFORMATION: Back pain. IMAGES PROVIDED: Lateral views of the lumbar spine in flexion and extension. COMPARISON: None. FINDINGS: Vertebral body heights are normal. Multilevel disc space reduction is seen with anterior and lateral osteophytes. There is grade 1 anterolisthesis of L4 over L5. It measures 9 mm in flexion and 6.5 mm in extension. No radiographic evidence of injury is noted. IMPRESSION: Degenerative changes of the lumbar spine. Instability at L4-L5. Interpreted By: Wilder Curry MD I WOLFF MD [address] [place] [address], [phone], [facility] 03/19/2021 15:54:33 Procedures Surgical History Date Name Laterality Status Provider Name and Address Organization Details Recorded Time 06/23/19 Audiogram completed RITU TSAI [address] [place], [address], [facility] 06/22/2021 11:36:59 05/11/19 Electromyography (EMG) with Nerve Conduction Study (NCV) completed Buffy Jordan (Nicky) [facility] 05/11/2021 15:22:37 placement of stent in cardiac conduit completed Reba Szymanski [facility] 03/08/2021 09:25:42 Imaging Results None recorded. Procedure Notes None recorded. Medical Equipment None Reported. Allergies Allergen ID Allergen Name Allergen Category Reaction Reaction Severity Criticality Documentation Date Start Date Code Code System Note Provider Name and Address Organization Details Recorded Time 692768 paregoric medicatio n Not available Not available Not available 03/18/20162011 73208 RxNorm Comme nt: Creat ed By: Ambar Good ti;Cr eated Date: 2011 3:04: 00 PM; Not Available [facility] 6 09:20:26 200562 Amrix medicatio n Not available Not available Not available 03/18/20162013 34856 5 RxNorm Comme nt: nakul tseat ions, lower ed bp;Cr eated By: Evon Schaeferdl e;Cre ated Date: 2013 4:14: 34 PM; Not Available [facility] 6 09:41:14 Medications Name Sig Start Date [...] Updated DateTime 03/08/2021 167.64 cm 33.9 kg/m2 62529.4 g 132 mm[Hg] 82 mm[Hg] [facility] 09:29:26 Social History None recorded. [...] 09:25:20 Medical History Condition Response Diabetes Y Heart Attack ([place]) Y Osteoporosis/Osteopenia Y Bleeding Disorder Y Hypertension Y High Cholesterol Y Gynecological HistoryNo gynecological history recorded. Obstetrics History GPAL:G 0 P 0 0 0 0 Past Encounters Encounter ID Performer Location Encounter Start Date Encounter Closed Date Diagnosis/Indication Diagnosis SNOMED-CT Code Diagnosis ICD10 Code Diagnosis Note [id number] SHERI WOLFF MD [facility] [address] [facility] [address] [place] [address] 03/08/2021 08:48:53 03/08/2021 13:34:13 Low back pain 729605862 M54.50 Time spent reviewing images, discussing the diagnosis and coordinati ng care: 30min Neck pain 39606482 M54.2 [id number] MARVIN HENRY MD NEUROLOGY [facility] CLOSED [address] [place] [address] 05/11/2021 13:35:29 05/11/2021 15:48:46 Bilateral carpal tunnel syndrome [id number] 4493346 G56.03 Neck pain 27217836 M54.2 [id number] RITU SCHULTZ ENT [facility] CLOSED [address] [place] [address] 06/22/2021 11:04:55 06/22/2021 14:16:01 Sensorineural hearing loss of bilateral ears 877499472 H90.3 Bilateral tinnitus 85938 64992 102 H93.13 Impairment of balance 38 7512314 R26.89 Health Concerns Section Related Observation LastModified by Organization Detai ls LastModified Time None Recorded Concern Status LastModified by Organization Details LastModified Time None Recorded Advance Directives Directive None Recorded Payers Insurance Date Sequence Insurance Name Policy Number Policy Lara Covered Member ID Lara Member ID Guarantor Name 06/22/2021 2 MEDICAID-[facility] CHOICES - FFS/TRADITIO NAL Rebeca Bassett [id number] Rebeca Bassett 06/22/2021 1 [employer] (MEDICARE REPLACEMENT/ ADVANTAGE - PPO) Rebeca Bassett [id number] Rebeca Bassett 06/11/2021 1 [place] [id number] Rebeca Bassett [id number] Rebeca Bassett Notes Date Note Type Note [...] did 6 weeks of physical therapy at [facility]. She has trialed a TENS unit which dulled the pain at first, but eventually quit working. She was on Vicodin for 7 years which did dulled the pain and relieve the headaches. She denies being on Lyrica or Neurontin. She underwent approximately 8 injections, which helped at first, but don't seem to help at this time. She has seen Dr. Nolen up to this point, but is transferring her care to Dr. Xavier, with [facility]. SHERI WOLFF MD [address] [place] [address], [phone], [facility] 03/08/2021 09:57:17 OBGyn Episode No OBEpisode recorded.
== END 2024-10-10 14:20 | disposition home or self-care (01) ==
LOC: INF 13:59
PROVIDERS: PCP Nurse Practitioner Family; Visit Provider Nurse Practitioner Family
DX: M81.0 Age-related osteoporosis without current pathological fracture (principal)
CPT/HCPCS: 96372; J0897

== ENCOUNTER 2025-01-08 11:14 | Outpatient (CLI) | payer MEDICARE, SELFPAY ==
--- OUTSIDE RECORDS SUMMARY | 2025-01-08 11:19 | XMS_ITS | Clinical Summary ---
Author Organization Healthcare Address [address] [place] [address] Care Team Providers Care Manufacturing Engineering Professor Name Role Phone Saqib Ivey MD Primary Care Provider [phone] Immunizations Immunization Administration Dates Next Due Pneumococcal [...] 50 + Years (2 of 2 - PCV20 or PCV21) 01/11/2017 01/12/2016 UKY-Zoster Vaccines (2 of 2) 03/25/2020 01/29/2020 [id number] Vaccine (3 - season) 2024 08/05/2020, 07/08/2020 UKY-Influenza Vaccine (#1) 12/23/202402/05, 03/03/2017 HPV Vaccines Aged Out No longer [...] age to complete this topic Care Teams Manufacturing Engineering Professor Relationship Specialty Start Date End Date Saqib Ivey MD [address] [place] [address] [place] [address] PCP - General 09/04/20
--- NOTE | 2025-01-08 11:23 | XR_ITS ---
FINAL REPORT CLINICAL HISTORY: CAP COMPARISON: 03/07/2017 FINDINGS: There is vague opacity in the right lower lobe suspicious for pneumonia. Tiny bilateral effusions identified. The mediastinum has a normal appearance. The cardiac silhouette is unremarkable. IMPRESSION: Findings suspicious for right lower lobe pneumonia with tiny bilateral effusions. Reviewed, Interpreted and Dictated by Hortencia Chamberlain MD Transcribed by Penny Talbot Authenticated and [facility]
[2025-01-08 15:31] LABS: Hematocrit 41.4 % (37.0-47.0); Hemoglobin 13.7 g/dL (12.2-16.2); Immature Granulocytes % 1.0 %; Mean Corpuscular HGB Conc 33.1 g/dL (31.8-35.4); Mean Corpuscular Hemoglobin 30.2 pg (27.0-31.2); Mean Corpuscular Volume 91.2 fl (81-99); Nucleated Red Blood Cells % 0 %; Platelet Count 474 K/mm3 (142-424); Red Blood Count 4.54 M/mm3 (4.20-5.40); Red Cell Distribution Width-SD 41.6 fL; White Blood Count 17.2 K/mm3 (4.8-10.8)
== END 2025-01-08 23:59 | disposition home or self-care (01) ==
LOC: RAD 11:16
PROVIDERS: PCP Nurse Practitioner Family; Visit Provider Student in an Organized Health Care Education/Training Program
DX: J18.9 Pneumonia, unspecified organism (principal); J90 Pleural effusion, not elsewhere classified; B37.9 Candidiasis, unspecified; R91.8 Other nonspecific abnormal finding of lung field
CPT/HCPCS: 71046; 85025; 87389

== ENCOUNTER 2025-03-24 10:01 | Outpatient (CLI) | payer MEDICARE, MEDICAID, SELFPAY ==
--- NOTE | 2025-03-24 10:00 | MM_ITS ---
PROCEDURE INFORMATION: Exam: MG Bilateral Screening 3D Mammography Exam date and time: 03/24/2025 10:07 AM Age: 60 years old Clinical indication: Screening mammogram TECHNIQUE: Imaging protocol: Bilateral Screening tomosynthesis and 2D mammography including computer-aided detection (CAD) when performed. COMPARISON: MG MM DIG SCREENING MAMM BI W/CAD 02/06/2024 10:39 AM FINDINGS: MAMMOGRAPHY: Breast composition: There are scattered areas of fibroglandular density. Mass: 0.7 cm mass within the lower outer periareolar right breast should be further assessed with spot views in CC/MLO projection. Ultrasound should also be scheduled. Architectural distortion: No new or suspicious architectural distortion. Calcifications: No new or suspicious calcifications are present Asymmetric density: No new or suspicious asymmetric density is present Skin thickening: None. Axillary adenopathy: None. IMPRESSION: 0.7 cm mass within the lower outer periareolar right breast should be further assessed with spot views in CC/MLO projection. Ultrasound should also be scheduled. ASSESSMENT: BI-RADS Category 0: Incomplete - Need Additional Imaging Evaluation
--- OUTSIDE RECORDS SUMMARY | 2025-03-24 10:08 | XMS_ITS | Clinical Summary ---
Author Organization Healthcare Address [address] [place] [address] Care Team Providers Care Fine Arts Packer Name Role Phone Saqib Ivey MD Primary Care Provider [phone] Immunizations Immunization Administration Dates Next Due Pneumococcal [...] Td Vaccine s (1 - Tdap) 1984 UKY-Pap Smear 1986 UKY-Cervical Cancer Screening 1995 UKY-HPV/Cotest 1995 CT Colonography 2010 Colonoscopy 2010 FIT-DNA 2010 FIT 2010 FOBT 2010 Sigmoidoscopy 2010 UKY-Colorectal Cancer Screening 2010 UKY-Pneumococcal Vaccine: 50 + Years (2 of 2 - PCV20 or PCV21) 01/11/2017 01/12/2016 UKY-Zoster Vaccines (2 of 2) 03/25/2020 01/29/2020 [id number] Vaccine (3 - season) 2024 08/05/2020, 07/08/2020 UKY-Influenza Vaccine (#1) 12/23/202402/05, 03/03/2017 UKY-RSV Vaccine: 60+ Years o r (1 - 1-dose 75+ series) 2040 HPV Vaccines Aged Out No longer eligi [...] age to complete this topic Care Teams Fine Arts Packer Relationship Specialty Start Date End Date Saqib Ivey MD [address] [place] [address] PCP - General 09/04/20
--- OUTSIDE RECORDS SUMMARY | 2025-03-24 10:09 | XMS_ITS | Data Portability ---
Author Organization [facility] Mohamud [place] CLOSED Address [address] [facility] [address] [place] [address] Care Team Providers Care Pants Busheler Name Role Phone KUSHAL HOLCOMB Primary Care Provider DAFNE NOLEN Pain Management SHERI FINCH Rn Clinical Research Assessment Encounter Date Assessment Date Assessment LastModified [...] By Organization Details Last Modified Time 06/22/2021 [id number] discussed ARITA's, Excellent Candidate States she is currently unemployed - I suggested she investigate her medicare coverage to see if there is a ARITA benefit to utilize. Provided her a copy of her hearing test today. [email or web address] Not available 06/22/2021 11:37:52 Reason for Referral None Reported. Results Created Date Observation Date Name Description Value Unit Range Abnormal Flag Note LastModifiedBy Organization Detail LastModifiedTime 03/08/20 21 03/08/2021 XR, lumbo sacra l spine , 2 or 3 view, bendi ng only [facility] [place] [address] Patien t Name: REBECA ALFARO ON Patien [...] Curry MD on 2020 11:03 AM [email or web address] [facility] [address] [place] [address], [place], [address], 03/19/2021 15:54:33 03/09/20 21 10/02/2020 MRI, cervi [...] observ ation record ed. [email or web address] Neurology Sb [address] [place] [address], [phone], 05/17/2021 11:07:32 06/26/19 22 06/22/2021 audio gram No observ ation record ed. BARCODE Not Available 2021 09:52:55 Result Notes Documentation Provider Name and Address Organization Details Recorded Time Xr, Lumbosacral Spine, 2 Or 3 View, Bending Only : [address] [address] Patient Name: REBECA BASSETT Patient : 1965 [...] By: Wilder Curry MD I WOLFF MD [address] [place] [address], [phone], [facility] 03/19/2021 15:54:33 Procedures Surgical History Date Name Laterality Status Provider Name and Address Organization Details Recorded Time 06/23/19 Audiogram completed RITU TSAI [address] [place], [address], [facility] 06/22/2021 11:36:59 05/11/19 Electromyography (EMG) with Nerve Conduction Study (NCV) completed Buffy Jordan (Nicky) [facility] 05/11/2021 15:22:37 placement of stent in cardiac conduit completed Reba Nessa [facility] 03/08/2021 09:25:42 Imaging Results None recorded. Procedure Notes None recorded. Medical Equipment None Reported. Allergies Allergen ID Allergen Name Allergen Category Reaction Reaction Severity Criticality Documentation Date Start Date Code Code System Note Provider Name and Address Organization Details Recorded Time 392512 paregoric medicatio n Not available Not available Not available 03/18/20162011 22673 RxNorm Comme nt: Creat ed By: Ambar Good ti;Cr eated Date: 2011 3:04: 00 PM; Not Available [facility] 6 09:20:26 911205 Amrix medicatio n Not available Not available Not available 03/18/20162013 85805 5 RxNorm Comme nt: nakul cinat ions, lower ed bp;Cr eated By: Evon Schaeferdl e;Cre ated Date: 2013 4:14: 34 PM; Not Available [facility] 6 09:41:14 Medications Name Sig Start Date [...] Body mass index (BMI) Body weight Systolic And Diastolic Provider Name and Address Organization Details Last Updated DateTime 03/08/2021 167.64 cm 33.9 kg/m2 64754.4 g 132/82 mm[Hg] [facility] 03/08/2021 09:29:26 Social History None recorded. Functional Status [...] History Condition Response Osteoporosis/Osteopenia Y Heart Attack ([place]) Y Diabetes Y Bleeding Disorder Y High Cholesterol Y Hypertension Y Gynecological HistoryNo gynecological history recorded. Obstetrics History GPAL:G 0 P 0 0 0 0 Past Encounters Encounter ID Performer Location Encounter Start Date Encounter Closed Date Diagnosis/Indication Diagnosis SNOMED-CT Code Diagnosis ICD10 Code Diagnosis IMO Codes Diagnosis Note [id number] SHERI WOLFF MD [facility] [address] [place] [address] 03/08/2021 08:48:53 03/08/2021 13:34:13 Low back pain 045560607 M54.50 Time spent reviewing images, discussing the diagnosis and coordinati ng care: 30min Neck pain 08189559 M54.2 [id number] MARVIN HENRY MD NEUROLOGY SB CLOSED [address] [place] [address] 05/11/2021 13:35:29 05/11/2021 15:48:46 Bilateral carpal tunnel syndrome 0598927512 4379572 G56.03 Neck pain 90134772 M54.2 [id number] RITU SCHULTZ PA ENT [facility] CLOSED [address] [facility] [place] [address] 06/22/2021 11:04:55 06/22/2021 14:16:01 Sensorineural hearing loss of bilateral ears 463876910 H90.3 Bilateral tinnitus [address]1965 55523 102 H93.13 Impairment of balance 38 7379334 R26.89 Health Concerns Section Related Observation LastModified by Organization Detai ls LastModified Time None Recorded Concern Status LastModified by Organization Details LastModified Time None Recorded Advance Directives Directive None Recorded Payers Insurance Date Sequence Insurance Name Policy Number Policy Lara Covered Member ID Lara Member ID Guarantor Name 06/22/2021 2 MEDICAID-[facility] CHOICES - FFS/TRADITIO NAL Rebeca Bassett [id number] Rebeca Mcgill Serjio 06/22/2021 1 [employer] (MEDICARE REPLACEMENT/ ADVANTAGE - PPO) Rebeca Bassett [id number] Rebeca Bassett 06/11/2021 1 [place] [id number] Rebeca Bassett [id number] Rebeca Bassett Notes Date Note Type Note [...] did 6 weeks of physical therapy at [facility]. She has trialed a TENS [...] transferring her care to Dr. Xavier, with [facility]. SHERI WOLFF MD [address] [place] [address], [phone], [facility] 03/08/2021 09:57:17 OBGyn Episode No OBEpisode recorded.
== END 2025-03-24 23:59 | disposition home or self-care (01) ==
LOC: RAD 10:01
PROVIDERS: PCP Nurse Practitioner Family; Visit Provider Nurse Practitioner Family
DX: Z12.31 Encounter for screening mammogram for malignant neoplasm of breast (principal); N63.13 Unspecified lump in the right breast, lower outer quadrant; R92.323 Mammographic fibroglandular density, bilateral breasts
CPT/HCPCS: 77063; 77067

== ENCOUNTER 2025-04-08 12:52 | Outpatient (CLI) | payer MEDICARE, MEDICAID, SELFPAY ==
--- OUTSIDE RECORDS SUMMARY | 2025-04-08 12:58 | XMS_ITS ---
Laboratory report Created on: March 25, 2025 [place] JOHN : 1965 Sex: Female Author Organization Unknown PROBLEMS Problems List Code Description RESULTS Laboratory Orders Date Order Code Test 2023-11-28 [id number] HCV ANTIBODY RFX TO QUANT PCR Laboratory Results Date LOINC Test Value Unit Reference Range Interpre tation 2023-11-28 [id number] HCV AB NR NON REACTIVE
--- OUTSIDE RECORDS SUMMARY | 2025-04-08 12:58 | XMS_ITS | Clinical Summary ---
Author Organization Healthcare Address [address] [place] [address] Care Team Providers Care Powersaw Supervisor Name Role Phone Saqib Ivey MD Primary Care Provider [phone] Immunizations Immunization Administration Dates Next Due Pneumococcal [...] Date Last Done Comments UKY-Depression Screening 1965 UKY-Infant/Child/Adol SDOH Screenings 1965 UKY- SDOH Screenings 1983 [...] UKY-Zoster Vaccines (2 of 2) 03/25/2020 01/29/2020 [id number] Vaccine (3 - season) 2024 08/05/2020, 07/08/2020 UKY-Influenza Vaccine (#1) 12/23/202402/05, 03/03/2017 UKY-RSV Vaccine: 60+ Years o r (1 - 1-dose 75+ series) 2040 HPV Vaccines (No Doses Required) Completed UKY-HIB Vaccines Aged Out No longer e [...] age to complete this topic Care Teams Powersaw Supervisor Relationship Specialty Start Date End Date Saqib Ivey MD [address] [address] PCP - General 09/04/20
[2025-04-08 13:50] VITALS: PULSE 65; PULSE 70
[2025-04-08] MEDS: ALBUTEROL 0.083% 2.5 MG/3 ML NEB IH (13:50)
--- NOTE | 2025-04-08 14:30 | CT_ITS ---
FINAL REPORT CLINICAL HISTORY: lung cancer screening, CURRENT SMOKER LESS THAN 1PPD FOR 45 YEARS COMPARISON: None FINDINGS: CT CHEST LOW DOSE SCREENING HISTORY: Screening exam for lung cancer. 60-year-old male, current smoker, 63-dixt-boek history. DOSE: CTDI vol: 2.90 mGy, DLP: 106.55 mGy*cm TECHNIQUE: Axial CT without IV contrast administration using low dose protocol. This study was performed with techniques to keep radiation doses as low as reasonably achievable, (ALARA). Individualized dose reduction techniques using automated exposure control or adjustment of mA and/or kV according to the patient's size were employed. No acute lung disease is present. No pulmonary lesions are seen suspicious for neoplasm. No pleural or pericardial effusion is seen. No adenopathy or mass lesion is present. The ascending aorta is at the upper limits of normal in size, measuring up to 38 mm in size. Severe coronary artery calcifications are identified. Note is made of a gastric sleeve. IMPRESSION: No evidence of lung cancer LUNG RADS CATEGORY 1 RECOMMENDATION: 12 month LDCT follow up Reviewed, Interpreted and Dictated by Hortencia Chamberlain MD Transcribed by Mallory Cherry Authenticated and [facility]
== END 2025-04-08 23:59 | disposition home or self-care (01) ==
LOC: RT 12:53
PROVIDERS: PCP Nurse Practitioner Family; Visit Provider Nurse Practitioner Family
DX: R06.02 Shortness of breath (principal); F17.210 Nicotine dependence, cigarettes, uncomplicated; Z12.2 Encounter for screening for malignant neoplasm of respiratory organs; M15.4 Erosive (osteo)arthritis; M81.8 Other osteoporosis without current pathological fracture; M47.816 Spondylosis without myelopathy or radiculopathy, lumbar region
CPT/HCPCS: 71271; 94010; 94640; 94727; 94729

== ENCOUNTER 2025-04-22 13:20 | Outpatient (CLI) | payer MEDICARE, MEDICAID, SELFPAY ==
--- OUTSIDE RECORDS SUMMARY | 2025-04-22 13:24 | XMS_ITS | Clinical Summary ---
Author Organization Healthcare Address [address] [place] [address] Care Team Providers Care Measurement And Sensing Technician Name Role Phone Saqib Ivey MD Primary Care Provider [phone] Immunizations Immunization Administration Dates Next Due Pneumococcal [...] UKY-Zoster Vaccines (2 of 2) 03/25/2020 01/29/2020 [id number] Vaccine (3 - season) 2024 08/05/2020, 07/08/2020 [...] age to complete this topic Care Teams Measurement And Sensing Technician Relationship Specialty Start Date End Date Saqib Ivey MD [address] [place] [address] PCP - General 09/04/20
--- NOTE | 2025-04-22 13:30 | MM_ITS ---
PROCEDURE INFORMATION: Exam: US Right Breast, Complete MG Right Diagnostic Breast Tomosynthesis Exam date and time: 04/22/2025 1:55 PM Age: 60 years old Clinical indication: Callback from screening for right breast mass. TECHNIQUE: Imaging protocol: Complete ultrasound of all four quadrants of the right breast and the retroareolar regions, including ultrasound of the axilla when performed. Right Diagnostic tomosynthesis and 2D mammography including computer-aided detection (CAD) when performed. Unilateral or bilateral exam. COMPARISON: 1. MG MM DIG SCREENING MAMM BI W/CAD 03/24/2025 10:07 AM 2. MG MM DIG SCREENING MAMM BI W/CAD 02/06/2024 10:39 AM FINDINGS: MAMMOGRAPHY: Breast composition: There are scattered areas of fibroglandular density. Breast mammogram findings: Right breast spot compression and 90 degree tomosynthesis views were obtained. The questioned mass noted on screening mammogram partially dissipates on problem solving views and may represent overlapping normal fibroglandular tissue.Elsewhere, there are no suspicious masses or calcifications in the partially visualized breast. No abnormal lymph nodes in the partially visualized axilla. ULTRASOUND: Breast ultrasound findings: The right breast was evaluated with ultrasound.No cysts, masses, regions of shadowing or distortion are seen. No abnormal lymph nodes in the axilla. IMPRESSION: Right breast asymmetry/mass without sonographic correlate is probably benign. Recommend six-month follow-up right breast diagnostic mammogram to ensure stability ASSESSMENT: BI-RADS Category 3: Probably benign.
== END 2025-04-22 23:59 | disposition home or self-care (01) ==
LOC: RAD 13:20
PROVIDERS: PCP Nurse Practitioner Family; Visit Provider Nurse Practitioner Family
DX: N63.10 Unspecified lump in the right breast, unspecified quadrant (principal); N63.13 Unspecified lump in the right breast, lower outer quadrant
CPT/HCPCS: 76641; 77061; 77065; G0279